=== PATIENT | male | born 1960 | race Caucasian/White ===

== ENCOUNTER 2025-05-22 13:12 | Inpatient (IN) | payer OTHER ==
--- OUTSIDE RECORDS SUMMARY | 2025-05-22 13:21 | XMS REPORT | Continuity of Care Document ---
Author Name Unknown Address [address] [facility] [address] [facility] [address] [place] [address] [facility] Address 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 Role Phone [facility] Primary Car e Physician Doctor Unassigned, [place] Attending Clinician U lopez Samaniego MD, Daniel MorenoHAshlie Attending Clinician Ayanna Iqbal MD Attending Clinician [phone] Fern Gonzalez RN Attending Clinician [phone] CINDA ROBERTS Attending Clinician Unavailable Paul Higuera MD Attending Clinician [phone] Caryn Bai LVN Attending Clinician GUME ECHEVERRIA Attending Clinician Unavailable GUME ECHEVERRIA Attending Clinician Unavailable Enzo Jauregui Attending Clinician Unavailable Maury Oliveira MD Attending Clinician Doctor Unassigned, [place] Attending Clinician U MAURY Garner Attending Clinician UnavailMAURY Grijalva Attending Clinician Unavaila ble 1, [facility] Attending Clinician Unavail able CINAD ROBERTS Admitting Clinician Unavailable RENETTA MELVIN Admitting Clinician Unavailable Enzo Jauregui Admitting Clinician Unavailable Physician, No Primary or Family Admitting Clinic maximus Unavailable Payers Payer Name Policy Type Policy Number Effective Date Expirati on Date Source Problems Condition Name Condition Details Condition Category Status Onset Date Resolution Date Last Treatment Date Treating Clinician Comments Source Coronary atheroscle rosis Coronary atheroscle rosis Disease Active 04-08 00:00: 00 [facility] Bradycardi a, unspecifie d Bradycardi a, unspecifie d Disease Active 04-08 00:00: 00 [facility] Type 2 diabetes mellitus with hyperglyce cole Type 2 diabetes mellitus with hyperglyce cole Disease Active 04-08 00:00: 00 [facility] History of cerebrovas cular accident History of cerebrovas cular accident Disease Active 04-08 00:00: 00 [facility] Essential (primary) hypertensi on Essential (primary) hypertensi on Disease Active 04-08 00:00: 00 [facility] Chest pain, unspecifie d type Chest pain, unspecifie d type Disease Active 04-07 00:00: 00 [facility] Weakness Weakness Disease Active 03-04 00:00: 00 [facility] Hyperlipid emia Hyperlipid emia Disease Active 2023-09 00:00: 00 [facility] Dyspnea Dyspnea Disease Active 2020-09 00:00: 00 [facility] No known active problems No known active problems Disease [facility] Allergies, Adverse Reactions, Alerts Allergy Name Allergy Type Status Severity Reaction(s) Onset Date Inactive Date Treating Clinician Comments Source PREGABAL IN DRUG INGREDI Active Other-Cmnt 03-04 00:00: 00 [facility] Pregabal in Propensi ty to adverse reaction s Active Other - See comments 03-04 00:00: 00 Vision changes [facility] No Known Allergie s DA Active U 2023-09 00:00: 00 [facility] NO KNOWN ALLERGIE S Drug Class Active [facility] Social History Social Habit Start Date Stop Date Quantity Comments Source History of tobacco use Cigarette Smoker [facility] Gender identity [facility] Tobacco use and exposure 2025-03-05 00:00:00 2025-03-05 00:00:00 Smokeless tobacco non-user [facility] Alcoholic beverage intake 2025-03-05 00:00:00 2025-03-05 00:00:00 Current drinker of alcohol (finding) [facility] Tobacco Comment 2025-03-05 00:00:00 2025-03-05 00:00:00 1 pack per week for 50 years [facility] Alcohol Comment 2025-03-05 00:00:00 2025-03-05 00:00:00 socially [facility] Exposure to SARS-CoV-2 (event) 2022-12-26 00:00:00 2023-01-05 14:32:00 Not sure [facility] History of Social function 2022-09-01 00:00:00 2022-09-01 00:00:00 [facility] Sex assigned at 1960 00:00:00 1960 00:00:00 [facility] Smoking Status Start Date Stop Date Source Tobacco smoking consumption unknown [facility] Ex-smoker 2025-04-07 00:00:00 2025-04-07 00:00:00 [facility] Smokes tobacco daily 2025-03-05 00:00:00 [facility] Medications Ordered Medication Name Filled Medication Name Start Date Stop Date Current Medication? 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 Restricted medication : ESTEPHANIA ARIAS [facility] tc 99m-tetrofo smin (MYOVIEW) injection 15.7 millicurie 04-09 14:45: 00 04-09 14:42 :00 No [id number] 15.7mCi 15.7 millicurie , Intravenou s, ONCE, 1 dose, On Tue04/09/25 at 0945, Routine [facility] atorvastati n (LIPITOR) tablet 40 mg atorvastati n (LIPITOR) tablet 40 mg 04-09 02:00: 00 04-09 21:46 :47 Yes 40mg 40 mg, Oral, QHS, First dose on Tue04/08/25 at 2100, Until Discontinu ed, Routine [facility] DULoxetine (CYMBALTA) capsule 60 mg DULoxetine (CYMBALTA) capsule 60 mg 04-08 14:00: 00 04-09 21:46 :47 Yes 60mg 60 mg, Oral, DAILY, First dose on Tue04/08/25 at 0900, Until Discontinu ed, Routine [facility] clopidogreL (PLAVIX) 75 mg tablet 75 mg clopidogreL (PLAVIX) 75 mg tablet 75 mg 04-08 14:00: 00 04-09 21:46 :47 Yes 75mg 75 mg, Oral, DAILY, First dose on Tue04/08/25 at 0900, Until Discontinu ed, Routine [facility] aspirin chewable tablet 81 mg aspirin chewable tablet 81 mg 04-08 14:00: 00 04-09 21:46 :47 Yes 81mg 81 mg, Oral, DAILY, First dose on Tue04/08/25 at 0900, Until Discontinu ed, Routine [facility] sennosides (SENOKOT) tablet 8.6 mg sennosides (SENOKOT) tablet 8.6 mg 04-08 13:00: 00 04-09 21:46 :47 Yes 8.6mg 8.6 mg, Oral, BID, First dose on Tue04/08/25 at 0800, Until Discontinu ed, Routine [facility] insulin glargine (LANTUS U-100) injection 8 Units insulin glargine (LANTUS U-100) injection 8 Units 04-08 13:00: 00 04-09 21:46 :47 Yes 8U 8 Units, Subcutaneo us, BID, First dose on Tue04/08/25 at 0800, Until Discontinu ed, Routine [facility] gabapentin (NEURONTIN) capsule 300 mg gabapentin (NEURONTIN) capsule 300 mg 04-08 13:00: 00 04-09 21:46 :47 Yes 300mg 300 mg, Oral, TID, First dose on Tue04/08/25 at 0800, Until Discontinu ed, Routine [facility] calcitrioL (ROCALTROL) capsule 0.25 mcg calcitrioL (ROCALTROL) capsule 0.25 mcg 04-08 13:00: 00 04-09 21:46 :47 Yes .25ug 0.25 mcg, Oral, BID, First dose on Tue04/08/25 at 0800, Until Discontinu ed, Routine [facility] memantine (NAMENDA) tablet 10 mg memantine (NAMENDA) tablet 10 mg 04-08 13:00: 00 04-09 21:46 :47 Yes 10mg 10 mg, Oral, BID, First dose on Tue04/08/25 at 0800, Until Discontinu ed, 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, 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 Restricted medication : AGUSTIN MACIEL [facility] melatonin (MELATIN) tablet 3 mg 04-08 05:50: 13 04-09 21:46 :47 No 3mg [facility] docusate (COLACE) capsule 200 mg 04-08 05:49: 36 04-09 21:46 :47 No 200mg [facility] nitroglycer in (NITROSTAT) sublingual tablet 0.4 mg 04-08 05:18: 25 04-09 21:46 :47 No .4mg 0.4 mg, Sublingual , Q5MIN PRN, Starting on Tue04/08/25 at 0018, Until Tue04/09/25 at 1646, Routine, Chest pain [facility] Sliding Scale Insulin - Lispro (HumaLOG) [id number] 3825-0 7-13 22:00: 00 04-09 21:46 :47 Yes Subcutaneo us, TID MEALS+HS, First dose on Tue04/07/25 at 1700, Until Discontinu ed, Routine [facility] enoxaparin (LOVENOX) injection 40 mg enoxaparin (LOVENOX) injection 40 mg 04-07 22:00: 00 04-09 21:46 :47 Yes 40mg 40 mg, Subcutaneo us, DAILY AT 1700, First dose on Tue04/07/25 at 1700, Until Discontinu ed, Routine [facility] glucagon HCL injection 1 mg 04-07 18:14: 37 04-09 21:46 :47 No 1mg [facility] dextrose 50 % in water (D50W) injection 25 mL 04-07 18:14: 37 04-09 21:46 :47 No 25mL [facility] ondansetron (ZOFRAN (PF)) injection 4 mg 04-07 18:14: 30 04-09 21:46 :47 No 4mg [facility] morpHINE (4 mg/mL) injection 4 mg 04-07 18:14: 29 04-09 21:46 :47 No 4mg [facility] HYDROcodone -acetaminop hen (NORCO 5) tablet 1 tablet HYDROcodone -acetaminop hen (NORCO 5) tablet 1 tablet 04-07 18:14: 27 04-09 21:46 :47 Yes 1{tbl} 1 tablet, Oral, Q6HPRN, Starting on Tue04/07/25 at 1314, Until Tue04/09/25 at 1646, Routine, Pain (scale 4-6) [facility] acetaminoph en (TYLENOL) tablet 650 mg 04-07 18:14: 22 04-09 21:46 :47 No 650mg [facility] aspirin tablet 325 mg 04-07 15:15: 00 04-07 16:24 :00 No 325mg 325 mg, Oral, ONCE, 1 dose, On Tue04/07/25 at 1015, STAT [facility] atorvastati n 40 mg tablet 03-19 00:00: 00 Yes [id number] 40mg Take 1 tablet by mouth at bedtime. [facility] calcitrioL 0.25 mcg capsule 03-19 00:00: 00 Yes [id number] .25ug Take 1 capsule by mouth in the morning and 1 capsule in the evening. [facility] clopidogreL 75 mg tablet 03-19 00:00: 00 Yes [id number] 75mg Take 1 tablet by mouth in the morning. [facility] DULoxetine 60 mg capsule 03-19 00:00: 00 Yes [id number] 60mg Take 1 capsule by mouth in the morning. [facility] gabapentin 300 mg capsule 03-19 00:00: 00 Yes [id number] 300mg Take 1 capsule by mouth in the morning and 1 capsule at noon and 1 capsule in the evening. [facility] insulin glargine 100 unit/mL injection 03-19 00:00: 00 Yes [id number] 8U inject 8 Units under the skin in the morning and 8 Units in the evening. [facility] sennosides 8.6 mg tablet 03-19 00:00: 00 Yes [id number] 8.6mg Take 1 tablet by mouth in the morning and 1 tablet in the evening. [facility] simethicone 80 mg chewable tablet 03-19 00:00: 00 Yes [id number] 160mg Take 2 tablets by mouth 3 times daily with meals as needed for Gas. [facility] clopidogreL 75 mg tablet 03-07 00:00: 00 06-06 04:59 :00 Yes [id number] 75mg Take 1 tablet by mouth in the morning for 90 days. [facility] DULoxetine 60 mg capsule 03-07 00:00: 00 04-07 04:59 :00 Yes [id number] 60mg Take 1 capsule by mouth in the morning for 30 days. [facility] metFORMIN 850 mg tablet 03-06 19:59: 17 Yes Take 1 tablet 3 times a day by oral route. [facility] vitamin B-12 1,000 mcg tablet 03-06 19:59: 17 Yes 1000ug Take 1 tablet by mouth in the morning. [facility] docusate 100 mg capsule 03-06 19:59: 17 Yes 200mg Take 2 capsules by mouth 2 times daily as needed for Constipati on. [facility] melatonin 3 mg tablet 03-06 19:59: 17 Yes 3mg Take 1 tablet by mouth at bedtime. [facility] tirzepatide 7.5 mg/0.5 mL subcutaneou s injection pen 03-06 19:59: 17 Yes 7.5mg inject 7.5 mg under the skin weekly. [facility] amLODIPine 5 mg tablet 03-06 19:59: 16 03-06 00:00 :00 No 5mg Take 1 tablet by mouth in the morning. [facility] calcitrioL 0.25 mcg capsule 03-06 19:59: 16 03-06 00:00 :00 No .25ug Take 1 capsule by mouth in the morning and 1 capsule in the evening. [facility] donepeziL 10 mg tablet 03-06 19:59: 16 03-06 00:00 :00 No 10mg Take 1 tablet by mouth at bedtime. [facility] insulin glargine 100 unit/mL injection 03-06 19:59: 16 03-06 00:00 :00 No 10U inject 10 Units under the skin in the morning and 10 Units in the evening. [facility] sennosides 8.6 mg tablet 03-06 19:59: 16 03-06 00:00 :00 No 8.6mg Take 1 tablet by mouth 2 times daily as needed for Constipati on. [facility] SERTraline 50 mg tablet 03-06 19:59: 16 03-06 00:00 :00 No 25mg Take 0.5 tablets by mouth in the morning. [facility] simethicone 80 mg chewable tablet 03-06 19:59: 16 03-06 00:00 :00 No 160mg Take 2 tablets by mouth 3 times daily with meals as needed for Gas. [facility] tiZANidine 4 mg capsule 03-06 19:59: 16 03-06 00:00 :00 No 4mg Take 1 capsule by mouth once daily as needed for Muscle Spasms. [facility] NaCl 0.9% (NS) IV infusion 1,000 mL 03-06 12:45: 00 03-06 14:21 :11 No 1000mL at 250 mL/hr, IV Infusion, ONCE, 1 dose, On Tue03/06/25 at 0745, Routine [facility] atorvastati n (LIPITOR) tablet 40 mg atorvastati n (LIPITOR) tablet 40 mg 03-06 02:00: 00 Yes 40mg 40 mg, Oral, QHS, First dose on Tue03/05/25 at 2100, Until Discontinu ed, Routine [facility] insulin glargine 100 unit/mL injection 03-06 00:00: 00 07-10 04:59 :00 Yes [id number] 8U inject 8 Units under the skin in the morning and 8 Units in the evening. Do all this for 125 days. [facility] atorvastati n 40 mg tablet 03-06 00:00: 00 06-05 04:59 :00 Yes [id number] 40mg Take 1 tablet by mouth at bedtime for 90 days. [facility] calcitrioL 0.25 mcg capsule 03-06 00:00: 00 06-05 04:59 :00 Yes [id number] .25ug Take 1 capsule by mouth in the morning and 1 capsule in the evening. Do all this for 90 days. [facility] sennosides 8.6 mg tablet 03-06 00:00: 00 06-05 04:59 :00 Yes [id number] 8.6mg Take 1 tablet by mouth in the morning and 1 tablet in the evening. Do all this for 90 days. [facility] simethicone 80 mg chewable tablet 03-06 00:00: 00 06-05 04:59 :00 Yes [id number] 160mg Take 2 tablets by mouth 3 times daily with meals as needed for Gas for up to 90 days. [facility] gabapentin 300 mg capsule 03-06 00:00: 00 04-06 04:59 :00 Yes [id number] 300mg Take 1 capsule by mouth in the morning and 1 capsule at noon and 1 capsule in the evening. Do all this for 30 days. [facility] perflutren lipid microsphere s (DEFINITY) injection 2 mL 03-05 20:45: 00 03-05 20:45 :00 No [id number] 2mL 2 mL, IV Push, ONCE, 1 dose, On Tue03/05/25 at 1545, Routine [facility] gabapentin (NEURONTIN) capsule 300 mg gabapentin (NEURONTIN) capsule 300 mg 03-05 19:00: 00 Yes 300mg 300 mg, Oral, TID, First dose (after last modificati on) on Tue03/05/25 at 1400, Until Discontinu ed, Routine [facility] DULoxetine (CYMBALTA) capsule 60 mg DULoxetine (CYMBALTA) capsule 60 mg 03-05 14:00: 00 Yes 60mg 60 mg, Oral, DAILY, First dose on Tue03/05/25 at 0900, Until Discontinu ed, Routine [facility] clopidogreL (PLAVIX) 75 mg tablet 75 mg clopidogreL (PLAVIX) 75 mg tablet 75 mg 03-05 14:00: 00 Yes 75mg 75 mg, Oral, DAILY, First dose on Tue03/05/25 at 0900, Until Discontinu ed, Routine [facility] vitamin B-12 (CYANOCOBAL ENRIQUEZ) tablet 1,000 mcg vitamin B-12 (CYANOCOBAL ENRIQUEZ) tablet 1,000 mcg 03-05 14:00: 00 03-07 00:59 :18 Yes 1000ug 1,000 mcg, Oral, DAILY, First dose on Tue03/05/25 at 0900, Until Discontinu ed, Routine [facility] tamsulosin (FLOMAX) capsule 0.4 mg tamsulosin (FLOMAX) capsule 0.4 mg 03-05 14:00: 00 03-05 13:51 :26 Yes .4mg 0.4 mg, Oral, DAILY, First dose on Tue03/05/25 at 0900, Until Discontinu ed, Routine [facility] sennosides (SENOKOT) tablet 8.6 mg sennosides (SENOKOT) tablet 8.6 mg 03-05 13:00: 00 Yes 8.6mg 8.6 mg, Oral, BID, First dose on Tue03/05/25 at 0800, Until Discontinu ed, Routine [facility] insulin glargine (LANTUS U-100) injection 8 Units insulin glargine (LANTUS U-100) injection 8 Units 03-05 13:00: 00 Yes 8U 8 Units, Subcutaneo us, BID, First dose on Tue03/05/25 at 0800, Until Discontinu ed, Routine [facility] calcitrioL (ROCALTROL) capsule 0.25 mcg calcitrioL (ROCALTROL) capsule 0.25 mcg 03-05 13:00: 00 Yes .25ug 0.25 mcg, Oral, BID, First dose on Tue03/05/25 at 0800, Until Discontinu ed, Routine [facility] Sliding Scale Insulin - Lispro (HumaLOG) [id number] 9854-0 6-10 13:00: 00 03-07 00:59 :18 Yes Subcutaneo us, TID MEALS+HS, First dose on Tue03/05/25 at 0800, Until Discontinu ed, Routine [facility] heparin (porcine) injection 5,000 Units [id number] 5213-0 6-10 13:00: 00 03-07 00:59 :17 Yes 5000U 5,000 Units, Subcutaneo us, Q12H, First dose on Tue03/05/25 at 0800, Until Discontinu ed, Routine [facility] gabapentin (NEURONTIN) capsule 900 mg gabapentin (NEURONTIN) capsule 900 mg 03-05 13:00: 00 03-05 15:39 :26 Yes 900mg 900 mg, Oral, TID, First dose on Tue03/05/25 at 0800, Until Discontinu ed, Routine [facility] simethicone (GAS RELIEF (SIMETHICON E)) chewable tablet 160 mg 03-05 06:03: 47 Yes 160mg [facility] glucagon HCL injection 1 mg 03-05 04:45: 01 03-07 00:59 :18 No 1mg 1 mg, Intramuscu lar, PRN, Starting on Tue03/04/25 at 2345, Until Tue03/06/25 at 195, MAHIN, Low blood sugar, Blood Glucose < or = 70 mg/dL and patient is NPO, unable to swallow or has mental changes. [facility] dextrose 50 % in water (D50W) injection 25 mL 03-05 04:45: 01 03-07 00:59 :18 No 25mL 25 mL, Slow IV Push, PRN, Starting on Tue03/04/25 at 2345, Until Tue03/06/25 at 195, MAHIN, Blood Glucose < or = 70 mg/dL and patient is NPO, unable to swallow or has mental status changes. [facility] atropine injection 1 mg 03-05 04:43: 07 03-07 00:59 :17 No 1mg 1 mg, IV Push, Q5MIN PRN, Starting on Tue03/04/25 at 2343, Until Tue03/06/25 at 1959, Routine, Symptomati c Bradycardi a [facility] acetaminoph en (TYLENOL) tablet 650 mg 03-05 04:40: 01 03-07 00:59 :18 No 650mg [facility] NaCl 0.9% (NS) bolus infusion 1,000 mL 03-05 03:00: 00 03-05 03:07 :00 No [id number] 1000mL at 999 mL/hr, 1,000 mL, IV Infusion, ONCE, 1 dose, On Tue03/04/25 at 2200, [facility] aspirin 81 mg EC tablet 03-05 01:11: 15 03-05 00:00 :00 No Take 1 tablet every day by oral route. [facility] Insulin Detemir 100 unit/mL (3 mL) injection 03-05 01:11: 15 03-05 00:00 :00 No 15 UNITS Q AM AND 20 UNITS Q PM [facility] NaCl 0.9% (NS) bolus infusion 1,000 mL 03-05 00:00: 00 03-05 00:50 :00 No [id number] 1000mL at 999 mL/hr, 1,000 mL, IV Infusion, ONCE, 1 dose, On Tue03/04/25 at 1900, [facility] acetaminoph en (TYLENOL) tablet 650 mg 03-05 00:00: 00 03-04 23:47 :00 No [id number] 650mg 650 mg, Oral, ONCE, 1 dose, On Tue03/04/25 at 1900, [facility] iopamidol (ISOVUE 370-500 mL) injection 83 mL 03-04 22:47: 00 03-04 23:00 :00 No [id number] 83mL 83 mL, Intravenou s, ONCE, 1 dose, On Tue03/04/25 at 1800, Routine [facility] metFORMIN 850 mg tablet 06-22 13:50: 27 Yes Take 1 tablet 3 times a day by oral route. [facility] aspirin 81 mg EC tablet 06-22 13:50: 26 Yes Take 1 tablet every day by oral route. [facility] Insulin Detemir 100 unit/mL (3 mL) injection 06-22 13:50: 26 Yes 15 UNITS Q AM AND 20 UNITS Q PM [facility] semaglutide 1 mg/dose (4 mg/3 mL) PnIj 8-14 00:00: 00 03-05 00:00 :00 No INJECT 2MG (1MGX2) UNDER THE SKIN EVERY WEEK FOR DIABETES [facility] gabapentin 300 mg capsule 04-04 00:00: 00 03-06 00:00 :00 No 900mg Take 3 capsules by mouth in the morning and 3 capsules at noon and 3 capsules in the evening. [facility] losartan 50 mg tablet 04-04 00:00: 00 03-06 00:00 :00 No 50mg 1 tablet. [facility] buPROPion XL 150 mg 24 hr tablet 04-04 00:00: 00 03-05 00:00 :00 No 150mg 1 tablet. [facility] lamoTRIgine 25 mg tablet 5-09 00:00: 00 03-05 00:00 :00 No 25mg 1 tablet. [facility] clopidogreL 75 mg tablet 4-30 00:00: 00 03-06 00:00 :00 No 75mg 1 tablet. [facility] atorvastati n 40 mg tablet 4-30 00:00: 00 03-06 00:00 :00 No 40mg 1 tablet. [facility] isosorbide mononitrate 30 mg 24 hr tablet 4-30 00:00: 00 03-06 00:00 :00 No 30mg 1 tablet. [facility] tamsulosin 0.4 mg 24 hr capsule 4-30 00:00: 00 03-06 00:00 :00 No .4mg 1 capsule. [facility] DULoxetine 20 mg capsule 2-10 00:00: 00 03-06 00:00 :00 No 80mg 4 capsules. [facility] albuterol 90 mcg/actuati on inhaler 10-22 00:00: 00 Yes 2{puff} Inhale 2 Puffs every 6 hours as needed. [facility] memantine 10 mg tablet 10-22 00:00: 00 Yes 10mg Take 1 tablet by mouth in the morning and 1 tablet in the evening. [facility] insulin glargine-yf gn 100 unit/mL (3 mL) InPn 10-11 00:00: 00 03-05 00:00 :00 No INJECT 60 UNITS UNDER THE SKIN EVERY MORNING AND INJECT 65 UNITS AT BEDTIME FOR DIABETES [facility] No known medications 2021-09 15:02: 16 No No known medication s [facility] Vital Signs Vital Name Observation Time Observation Value Comments S alyssa Systolic blood pressure 2025-04-09 20:38:00 123 mm[Hg] [facility] Diastolic blood pressure 2025-04-09 20:38:00 71 mm[Hg] [facility] Heart rate 2025-04-09 20:38:00 62 /min [facility] Body temperature 2025-04-09 20:38:00 36.56 Mag [facility] Respiratory rate 2025-04-09 20:38:00 15 /min [facility] Oxygen saturation in Arterial blood by Pulse oximetry 2025-04-09 20:38:00 96 /min [facility] Body weight 2025-04-09 08:40:00 74.98 kg [facility] BMI 2025-04-09 08:40:00 25.13 kg/m2 [facility] Body height 2025-04-07 15:08:00 172.7 cm [facility] Systolic blood pressure 2025-03-06 20:35:00 131 mm[Hg] [facility] Diastolic blood pressure 2025-03-06 20:35:00 72 mm[Hg] [facility] Heart rate 2025-03-06 20:35:00 50 /min [facility] Body temperature 2025-03-06 20:35:00 36.56 Mag [facility] Respiratory rate 2025-03-06 20:35:00 18 /min [facility] Oxygen saturation in Arterial blood by Pulse oximetry 2025-03-06 20:35:00 98 /min [facility] Body weight 2025-03-06 09:00:00 78.971 kg [facility] BMI 2025-03-06 09:00:00 26.47 kg/m2 [facility] Body height 2025-03-05 04:53:00 172.7 cm [facility] Systolic blood pressure 2023-06-22 18:53:00 147 mm[Hg] [facility] Diastolic blood pressure 2023-06-22 18:53:00 77 mm[Hg] [facility] Heart rate 2023-06-22 18:53:00 73 /min [facility] Body height 2023-06-22 18:53:00 172.7 cm [facility] Body weight 2023-06-22 18:53:00 91.627 kg [facility] BMI 2023-06-22 18:53:00 30.71 kg/m2 [facility] Oxygen saturation in Arterial blood by Pulse oximetry 2023-06-22 18:53:00 95 /min [facility] Systolic blood pressure 2023-01-05 19:49:00 123 mm[Hg] [facility] Diastolic blood pressure 2023-01-05 19:49:00 76 mm[Hg] [facility] Heart rate 2023-01-05 19:49:00 85 /min [facility] Body temperature 2023-01-05 19:49:00 35.83 Mag [facility] Respiratory rate 2023-01-05 19:49:00 19 /min [facility] Oxygen saturation in Arterial blood by Pulse oximetry 2023-01-05 19:49:00 95 /min [facility] Systolic blood pressure 2022-09-01 20:59:00 135 mm[Hg] [facility] Diastolic blood pressure 2022-09-01 20:59:00 70 mm[Hg] [facility] Heart rate 2022-09-01 20:59:00 65 /min [facility] Respiratory rate 2022-09-01 20:59:00 21 /min [facility] Body height 2022-09-01 20:59:00 172.7 cm [facility] Body weight 2022-09-01 20:59:00 111.585 kg [facility] BMI 2022-09-01 20:59:00 37.40 kg/m2 [facility] Oxygen saturation in Arterial blood by Pulse oximetry 2022-09-01 20:59:00 95 /min [facility] Procedures Procedure Date / Time Performed Performing Clinician Source POCT GLUCOSE (AUTOMATED) 2025-04-09 17:45:00 Arleen Roberts [facility] EKG-12 LEAD 2025-04-09 14:28:15 [facility] 2025-04-09 12:37:00 Arleen Roberts [facility] BASIC METABOLIC PANEL (NA, K, CL, CO2, GLUCOSE, BUN, CREATININE, CA) 2025-04-09 06:07:00 Rita Calderón [facility] CBC WITH DIFF 2025-04-09 06:07:00 Rita Calderón [facility] POCT GLUCOSE (AUTOMATED) 2025-04-09 00:58:00 Arleen Roberts [facility] POCT GLUCOSE (AUTOMATED) 2025-04-08 21:29:00 Arleen Roberts [facility] POCT GLUCOSE (AUTOMATED) 2025-04-08 16:31:00 Arleen Roberts [facility] POCT GLUCOSE (AUTOMATED) 2025-04-08 12:46:00 Arleen Roberts [facility] MAGNESIUM 2025-04-08 05:47:00 Cinda Roberts [facility] BASIC METABOLIC PANEL (NA, K, CL, CO2, GLUCOSE, BUN, CREATININE, CA) 2025-04-08 05:47:00 Cinda Roberts [facility] TROPONIN I 2025-04-08 03:14:00 Cinda Roberts [facility] POCT GLUCOSE (AUTOMATED) 2025-04-08 02:12:00 Arleen Roberts [facility] TROPONIN I 2025-04-07 21:44:00 Cinda Roberts [facility] POCT GLUCOSE (AUTOMATED) 2025-04-07 21:29:00 Arleen Roberts [facility] URINALYSIS 2025-04-07 16:04:00 Hector Martins [facility] TROPONIN I 2025-04-07 15:58:00 Hector Martins [facility] COMP. METABOLIC PANEL (62409) 2025-04-07 15:58:00 Hector Martins [facility] N-TERMINAL PRO-BNP 2025-04-07 15:58:00 Grecia Martins [facility] CBC WITH DIFF 2025-04-07 15:57:00 Hector Martins [facility] XR CHEST 1 VW 2025-04-07 15:18:00 Hector Martins [facility] POCT GLUCOSE (AUTOMATED) 2025-03-06 22:48:00 Toi Echeverria [facility] POCT GLUCOSE (AUTOMATED) 2025-03-06 17:21:00 Toi Echeverria [facility] POCT GLUCOSE (AUTOMATED) 2025-03-06 13:36:00 Toi Echeverria [facility] MAGNESIUM 2025-03-06 10:21:00 Paul Higuera [facility] BASIC METABOLIC PANEL (NA, K, CL, CO2, GLUCOSE, BUN, CREATININE, CA) 2025-03-06 10:21:00 Paul Higuera [facility] CBC WITH DIFF 2025-03-06 10:21:00 Paul Higuera [facility] POCT GLUCOSE (AUTOMATED) 2025-03-06 01:47:00 Toi Echeverria [facility] POCT GLUCOSE (AUTOMATED) 2025-03-05 23:20:00 Toi Echeverria [facility] TRANSTHORACIC ECHO (TTE) COMPLETE W/ CONTRAST 2025-03-05 20:30:30 Mariluz Myers [facility] POCT GLUCOSE (AUTOMATED) 2025-03-05 17:05:00 Toi Echeverria [facility] POCT GLUCOSE (AUTOMATED) 2025-03-05 14:15:00 Toi Echeverria [facility] MAGNESIUM 2025-03-05 09:20:00 Leonora Carr [facility] VITAMIN B12, LEVEL 2025-03-05 09:20:00 Leonora Peacock Rosanna [facility] TROPONIN I 2025-03-05 09:20:00 Leonora Carr Rosanna [facility] BASIC METABOLIC PANEL (NA, K, CL, CO2, GLUCOSE, BUN, CREATININE, CA) 2025-03-05 09:20:00 Leonora Carr Rosanna [facility] LIPID PANEL (18441)(TOTAL CHOLESTEROL, TRIGLYCERIDES, HDL) 2025-03-05 09:20:00 Leonora Carr [facility] CBC WITH DIFF 2025-03-05 09:20:00 Leonora Carr Rosanna [facility] VITAMIN D, 25-OH 2025-03-05 09:20:00 Leonora Carr Rosanna [facility] HB ECG ROUTINE & RHYTHM STRIP 2025-03-05 06:41:24 Leonora Carr Rosanna [facility] BLOOD CULTURE SCREEN 2025-03-05 02:26:00 Gerry Salazar [facility] LACTIC ACID WITH 2 HOUR REFLEX 2025-03-05 02:26:00 Ronnie Salazar [facility] INFLUENZA A/B RSV COVID NAAT 2025-03-05 00:47:00 Ronnie Salazar [facility] XR CHEST 1 VW 2025-03-04 23:58:00 Ronnie Salazar [facility] URINALYSIS 2025-03-04 23:42:00 Ronnie Salazar [facility] HB ECG ROUTINE & RHYTHM STRIP 2025-03-04 23:24:40 Ronnie Salazar [facility] POCT GLUCOSE (AUTOMATED) 2025-03-04 23:23:00 Jesus Salazar [facility] CT STROKE ANGIOGRAM HEAD 2025-03-04 22:51:58 Jesus Salazar [facility] CT STROKE ANGIOGRAM NECK 2025-03-04 22:51:58 Jesus Salazar [facility] CT STROKE HEAD WO CONTRAST 2025-03-04 22:44:50 Ronnie Salazar [facility] TROPONIN I 2025-03-04 22:43:00 Ronnie Salazar [facility] THYROID STIMULATING HORMONE 2025-03-04 22:43:00 Ronnie Salazar [facility] BASIC METABOLIC PANEL (NA, K, CL, CO2, GLUCOSE, BUN, CREATININE, CA) 2025-03-04 22:43:00 Ronnie Salazar [facility] CBC WITHOUT DIFF 2025-03-04 22:43:00 [facility]A1C[facility] 2025-03-04 22:43:00 Leonora Carr [facility] PROTHROMBIN TIME / INR 2025-03-04 22:43:00 Kumar Salazar [facility] ACTIVATED PARTIAL THRMPLAS ROBER 2025-03-04 22:43:00 Ronnie Salazar [facility] POCT GLUCOSE (AUTOMATED) 2025-03-04 22:36:00 Jesus Salazar [facility] DME/SUPPLY JUSTIFICATION 2023-06-23 05:01:00 Doc tor Unassigned, [place] [facility] SLEEP LAB RESULTS 2023-05-28 05:01:00 Doctor Lea ssigned, [place] [facility] SLEEP STUDY DATA REPORT 2022-12-20 05:01:00 Doct or Unassigned, [place] [facility] AUTHORIZATION FOR RELEASE OF PHI 2022-09-17 06:01:00 Doctor Unassigned, [place] [facility] NO SHOW OR MISSED APPOINTMENT POLICY ACKNOWLEDGEMENT 2022-09-01 20:51:38 Doctor Unassigned, [place] [facility] PATIENT FINANCIAL POLICY 2022-09-01 20:51:18 Doctor Unassigned, [place] [facility] ASSIGNMENT OF BENEFITS 2022-09-01 20:50:51 Docto r Unassigned, [place] [facility] CONSENT/REFUSAL FOR DIAGNOSIS AND TREATMENT 2022-09-01 20:50:36 Doctor Unassigned, [place] [facility] Encounters Start Date/Time End Date/Time Encounter Type Admission Type Attending [facility] Care Department Encounter ID Source 2025-04-04 00:00:00 2025-05-11 18:38:38 Patient Secure Msg Doctor Unassigned, [place] Doctor Unassigned, [place] [facility] 1.840.114 350.1.13.10 4.2.7.2.686 [id number] [facility] 2025-04-10 00:00:00 2025-05-11 18:19:45 Patient Secure Msg Daniel Samaniego [facility] 1.2840.114 350.1.13.10 4.2.7.2.686 [id number] [facility] 2025-03-19 00:00:00 2025-04-20 18:21:39 Patient Secure Msg Ayanna Iqbal [facility] 1..840.114 350.1.13.10 4.2.7.2.686 [id number] [facility] 2025-04-10 00:00:00 2025-04-10 10:45:31 Transition of Care Fern Gonzalez Marisa M SHEARN MOODY PLAELINA 1..840.114 350.1.13.10 4.2.7.2.686 [id number] [facility] 2025-04-07 10:04:00 2025-04-09 16:24:00 Hospital Encounter X CINDA ROBERTS [facility] [id number] [facility] 2025-03-07 00:00:00 2025-03-19 11:04:13 Telephone Paul Higuera [facility] 1..840.114 350.1.13.10 4.2.7.2.686 [id number] [facility] 2025-03-07 00:00:00 2025-03-07 11:23:57 Transition of Care Caryn Bai Antoinette SHEARTigist JOSÉ LUIS SALCIDO 1..840.114 350.1.13.10 4.2.7.2.686 [id number] [facility] 2025-03-04 17:31:00 2025-03-06 19:52:00 Hospital Encounter X GUME ECHEVERRIA PATRICK [facility] [id number] [facility] 2024-08-04 16:46:00 2024-08-07 16:11:00 Inpatient EM Enzo Jauregui [facility] [id number] [facility] 2023-08-30 00:00:00 2023-08-30 00:00:00 Telephone Maury Oliveira [facility] 1..840.114 350.1.13.10 4.2.7.2.686 [id number] [facility] 2023-08-23 00:00:00 2023-08-23 00:00:00 Telephone Maury Oliveira [facility] 1..840.114 350.1.13.10 4.2.7.2.686 [id number] [facility] 2023-07-18 00:00:00 2023-07-18 00:00:00 Telephone Maury Oliveira [facility] 1.2.840.114 350.1.13.10 4.2.7.2.686 [id number] [facility] 2023-06-23 00:00:00 2023-06-23 00:00:00 Orders Only Doctor Unassigned, [place] [facility] 1.2.840.114 350.1.13.10 4.2.7.2.686 [id number] [facility] 2023-06-22 14:00:00 2023-06-22 14:30:00 Office Visit Maury Oliveira [facility] 1.2.840.114 350.1.13.10 4.2.7.2.686 [id number] [facility] 2023-06-22 14:00:00 2023-06-22 14:00:00 Outpatient R MAURY OLIVEIRA [facility] [id number] [facility] 2023-06-06 20:00:00 2023-06-06 20:00:00 Outpatient R MAURY OLIVEIRA [facility] [id number] [facility] 2023-05-28 20:00:00 2023-05-28 22:30:00 Restaurant Delivery Driver Visit 1, [facility] Bed Maury Oliveira [facility] 1.2.840.114 350.1.13.10 4.2.7.2.686 [id number] [facility] 2023-05-28 20:00:00 2023-05-28 20:00:00 Outpatient R MARCOSKAREN, KAYLIL XAVIER, [facility] [id number] [facility] 2023-05-28 19:45:00 2023-05-28 19:45:00 Outpatient R XAVIER, KAYLIL XAVIER, [facility] [id number] [facility] 2023-05-28 00:00:00 2023-05-28 00:00:00 Orders Only Doctor Unassigned, [place] [facility] 1.840.114 350.1.13.10 4.2.7.2.686 [id number] [facility] 2023-01-05 15:00:00 2023-01-05 15:30:00 Office Visit Maury Oliveira [facility] 1.840.114 350.1.13.10 4.2.7.2.686 [id number] [facility] 2023-01-05 15:00:00 2023-01-05 15:00:00 Outpatient R MARCOSCHANTALSATURNINO, KAYLIL XAVIER, [facility] [id number] [facility] 2022-12-20 20:00:00 2022-12-20 22:30:00 Restaurant Delivery Driver Visit 1, [facility] Bed Muary Oliveira [facility] 1.840.114 350.1.13.10 4.2.7.2.686 [id number] [facility] 2022-12-20 20:00:00 2022-12-20 20:00:00 Outpatient R MARCOSCHANTALSATURNINO MAYRAYADIRAL MARCOSKAREN, [facility] [id number] [facility] 2022-12-20 00:00:00 2022-12-20 00:00:00 Orders Only Doctor Unassigned, [place] [facility] 1.2840.114 350.1.13.10 4.2.7.2.686 [id number] [facility] 2022-09-17 00:00:00 2022-09-17 00:00:00 Orders Only Doctor Unassigned, [place] [facility] 1.2.840.114 350.1.13.10 4.2.7.2.686 [id number] [facility] 2022-09-01 16:30:00 2022-09-01 17:00:00 Office Visit [facility]ury [facility] 1.2.840.114 350.1.13.10 4.2.7.2.686 [id number] [facility] 2022-09-01 16:30:00 2022-09-01 16:17:42 Outpatient R MAURY OLIVEIRA [facility] [id number] [facility] 2022-09-01 00:00:00 2022-09-01 00:00:00 Orders Only Doctor Unassigned, [place] [facility] 1.2.840.114 350.1.13.10 4.2.7.2.686 [id number] [facility] Results Test Description Test Time Test Comments Results Result Co mments Source [facility] GLUCOSE (AUTOMATED)2025-04-09 12:37:44* Test Item Value Reference Range Interpretation Comme nts POCT GLU (test code = 1583122377) 111 mg/dL 70-110 H Lab Interpretation (test cod e = 88937-8) Abnormal [facility] GLUCOSE (AUTOMATED)2025-04-09 01:00:14* Test Item Value Reference Range Interpretation Comme nts POCT GLU (test code = 6747637254) 152 mg/dL 70-110 H Lab Interpretation (test cod e = 16296-0) Abnormal [facility] GLUCOSE (AUTOMATED)2025-04-08 21:29:41* Test Item Value Reference Range Interpretation Comme nts POCT GLU (test code = 7029207069) 132 mg/dL 70-110 H Lab Interpretation (test cod e = 12833-8) Abnormal [facility] GLUCOSE (AUTOMATED)2025-04-08 16:31:47* Test Item Value Reference Range Interpretation Comme nts POCT GLU (test code = 7956327546) 157 mg/dL 70-110 H Lab Interpretation (test cod e = 78093-3) Abnormal [facility] GLUCOSE (AUTOMATED)2025-04-08 12:47:16* Test Item Value Reference Range Interpretation Comme nts POCT GLU (test code = 7891923427) 129 mg/dL 70-110 H Lab Interpretation (test cod e = 90336-6) Abnormal [facility] GLUCOSE (AUTOMATED)2025-04-08 02:13:13* Test Item Value Reference Range Interpretation Comme nts POCT GLU (test code = 0494400996) 112 mg/dL 70-110 H Lab Interpretation (test cod e = 01960-0) Abnormal [facility] GLUCOSE (AUTOMATED)2025-04-07 21:30:13* Test Item Value Reference Range Interpretation Comme nts POCT GLU (test code = 3473403284) 232 mg/dL 70-110 H Lab Interpretation (test cod e = 07957-2) [id number] 16:42:47* Test Item Value Reference Range Interpretation Comme nts TROPONIN I (test code = 4164302280) 0.002 ng/mL <=0.034 EMERY (test code = EMERY) Reference (Normal) Range (defined by the 99th percentile reference limit): <= 0.034 ng/mL Note: Cardiac troponin begins to rise 3-4 hours after the onset of ischemia. Repeat in 4-6 hours if the sample was drawn within 3-4 hours of the onset of the symptom and found normal. Diagnosis of myocardial injury is made with acute changes in cTn concentrations with at least one serial sample above the 99th percentile upper reference limit (URL), taken together with the patient's clinical presentation. Biotin has been reported to cause a negative bias, interpret results relative to patient's use of biotin. Lab Interpretation (test code = 22901-4) Normal [facility] [id number] 16:40:06* Test Item Value Reference Range Interpretation Comme nts NT-proBNP (test code = 16524-6) 198 pg/mL <=125 EMERY (test code = EMERY) Result Indeterminate-Consid er causes of NT-proBNP elevation other than Heart failure such as acute coronary syndrome, pulmonary embolism, pulmonary hypertension, sepsis, stroke, and renal dysfunction. Lab Interpretation (test code = 81549-3) Abnormal [facility]. METABOLIC PANEL (63205)2025-04-07 16:30:47* Test Item Value Reference Range Interpretation Comme nts NA (test code = 0204453005) 139 mmol/L 135-145 K (test code = 0211628628) 4.2 mmol/L 3.5-5.0 CL (test code = 5972865012) 103 mmol/L 98-108 CO2 TOTAL (test code = 0997464069) 27 mmol/L 23-31 AGAP (test code = 4308242984) 9 2-16 BUN (test code = 4665923045) 12 mg/dL 7-23 GLUCOSE (test code = 7171332672) 130 mg/dL 70-110 H CREATININE (test code = 2160-0) 0.88 mg/dL 0.60-1.25 TOTAL BILI (test code = 1226912835) 0.6 mg/dL 0.1-1.1 CALCIUM (test code = 6248096484) 9.4 mg/dL 8.6-10.6 T PROTEIN (test code = 9297767676) 6.8 g/dL 6.3-8.2 ALBUMIN (test code = 9653919095) 4.1 g/dL 3.5-5.0 ALK PHOS (test code = 1354727402) 78 U/L 34-122 ALTv (test code = 1742-6) 23 U/L 5-50 AST(SGOT) (test code = 0149497110) 21 U/L 13-40 eGFR (test code = 49278-1) 95.4 mL/min/1.73m2 CKD-EPI eGFR (2020). Assuming creatinine has been stable day-to-day for at least three months, the eGFR indicates Category G1 (>= 90 mL/min/1.73 m2) Lab Interpretation (test code = 24208-5) Abnormal [facility] WITH [id number] 16:19:29* Test Item Value Reference Range Interpretation Comme nts WBC (test code = 6690-2) 8.64 4.20-10.70 RBC (test code = 789-8) 3.78 4.26-5.52 L HGB (test code = 718-7) 12.2 g/dL 12.2-16.4 HCT (test code = 4544-3) 34.8 % 38.4-49.3 L MCV (test code = 787-2) 92.1 fL 81.7-95.6 MCH (test code = 785-6) 32.3 pg 26.1-32.7 MCHC (test code = 786-4) 35.1 g/dL 31.2-35.0 H RDW-SD (test code = 60367-7) 40.5 fL 38.5-51.6 RDW-CV (test code = 788-0) 12.2 % 12.1-15.4 PLT (test code = 777-3) 227 150-328 MPV (test code = 78543-8) 11.4 fL 9.8-13.0 NRBC/100 WBC (test code = 3986230871) 0 0.0-10.0 NRBC x10^3 (test code = 3087059808) See_Comment [Automated messa ge] The system which generated this result transmitted reference range: 10*3/?L. The reference range was not used to interpret this result as normal/abnormal. GRAN MAT (NEUT) % (test code = 770-8) 66.7 % IMM GRAN % (test code = 6907568382) 0.2 % LYMPH % (test code = 736-9) 22 % MONO % (test code = 5905-5) 7.2 % EOS % (test code = 713-8) 3.2 % BASO % (test code = 706-2) 0.7 % GRAN MAT x10^3(ANC) (test code = 3080743187) 5.76 10*3/uL 1.99-6.95 IMM GRAN x10^3 (test code = 1149149258) 0.00-0.06 LYMPH x10^3 (test code = 731-0) 1.9 10*3/uL 1.09-3.23 MONO x10^3 (test code = 742-7) 0.62 10*3/uL 0.36-1.02 EOS x10^3 (test code = 711-2) 0.28 10*3/uL 0.06-0.53 BASO x10^3 (test code = 704-7) 0.06 10*3/uL 0.01-0.09 Lab Interpretation (test code = 34361-4) [facility] [id number] 15:18:59PROCEDURE: XR CHEST 1 VW CLINICAL INDICATION: chest pain COMPARISON: 03/04/2025 FINDINGS: The lungs are partial expanded and clear. No pleural effusion or pneumothorax is seen. The cardiomediastinal silhouette is normal. No acute bony abnormality. [facility] GLUCOSE (AUTOMATED)2025-03-06 22:49:35* Test Item Value Reference Range Interpretation Comme [facility] POCT GLU (test code = 1781362708) 110 mg/dL 70-110 Lab Interpretation (test cod e = 93693-5) Normal [facility] GLUCOSE (AUTOMATED)2025-03-06 17:22:38* Test Item Value Reference Range Interpretation Comme [facility] POCT GLU (test code = 4663196239) 127 mg/dL 70-110 H Lab Interpretation (test cod e = 66290-0) Abnormal [facility] GLUCOSE (AUTOMATED)2025-03-06 13:37:31* Test Item Value Reference Range Interpretation Comme [facility] POCT GLU (test code = 9821435006) 112 mg/dL 70-110 H Lab Interpretation (test cod e = 93849-7) [facility]normal [facility] [id number] 01:52:53* Test Item Value Reference Range Interpretation Comme nts Height (test code = 9746507665) 68 in Weight (test code = 9908758427) 178 lbs Systolic BP (test code = 2437309463) 115 mmHg Diastolic BP (test code = 0104413340) 60 mmHg Heart Rate (test code = 6317463726) 54 bpm BSA (test code = 9609984403) 1.95 m2 Ao root diam (test code = 9180900847) 3.5 cm Aortic root (test code = 5113851355) 3.5 cm Ao root annulus (test code = 2084379142) 3.5 cm LVOT diameter (test code = 2484989634) 2.11 cm LVOT area (test code = 0183022073) 3.5 cm2 LA size (test code = 0760022481) 5 cm TR Peak Arnulfo (test code = 9923912305) 238.1 cm/s Triscuspid Valve Regurgitation Peak Gradient (test code = 7434322378) 22.7 mmHg Pulmonic Regurgitant End Max Velocity (test code = 6099818661) 84.7 cm/s PV REGURGITATION PEAK GRADIENT (test code = 5489377934) 15 mmHg PI dec slope (test code = 8091550020) 267.1 cm/s2 LAV(MOD-sp4) (test code = 8886903518) 58.5 mL MV Peak A Arnulfo (test code = 6418413984) 75.5 cm/s MV Peak E Arnulfo (test code = 7006228685) 83.3 cm/s E/A ratio (test code = 7413051593) 1.1 ratio E wave decelartion time (test code = 5892230644) 0.21 s MV Prop V (test code = 1640387386) 115.4 cm/s MV E/e' septal (test code = 9637999621) 8.1 cm/s TASV (test code = 6077122985) 7.1 cm/s LVOT stroke volume (test code = 2493785665) 88.2 cm3 LVOT peak arnulfo (test code = 4824345788) 124.2 cm/s LVOT mn grad (test code = 6791927601) 2.6 mmHg AV LVOT peak gradient (test code = 5631180279) 6.2 mmHg LVOT peak VTI (test code = 6831989695) 25.3 cm LV V1 mean (test code = 6988099550) 74.9 cm/s Aortic valve mean velocity (test code = 1088890263) 90.5 cm/s Ao peak arnulfo (test code = 6151562348) 131.5 cm/s Ao VTI (test code = 5440741131) 30.9 cm AV area by cont VTI (test code = 3348273842) 2.9 cm2 AV area peak arnulfo (test code = 2304503297) 3.3 cm2 Ao max PG (test code = 4034701747) 6.9 mm[Hg] AV peak gradient (test code = 2779547208) 6.9 mmHg AV valve area (test code = 1981285400) 2.9 cm2 AV mean gradient (test code = 1455436959) 3.6 mmHg Tapse (test code = 0472957148) 3.1 cm LA Volume Index (BP) (test code = 4530113203) 32.6 mL/m2 LA volume (BP) (test code = 2651514112) 63.4 mL LAV(MOD-sp2) (test code = 4727890883) 62.4 mL LVIDD (test code = 6760301425) 4.7 cm Left Ventricular End Diastolic Volume by Teichholz Method (test code = 8822518) 104.7 mL IVS (test code = 2995854207) 0.84 cm Interventricular Septum Diastolic Thickness by 2D (test code = 4292333) 0.84 cm LVPWD (test code = 2430955433) 0.95 cm LV RWT (test code = 7644576448) 0.4 LV mass (test code = 3156477685) 141.65 g LV Mass Index (test code = 0450030441) 72.6 g/m2 PW (test code = 0281718989) 0.95 cm 0.6-1.1 EF(Teich) (test code = 9490767820) 52 % LVIDS (test code = 7506631445) 3.5 cm Left Ventricular End Systolic Volume by Teichholz Method (test code = 9971761) 50.2 mL FS (test code = 6710701210) 27 % EF - 2D (test code = 69417673) 52 % Radiology Study observation (narrative) (test code = 77427-5) EMERY (test code = EMERY) ?Left?Ventricle: Left ventricle is mildly dilated. Normal wall thickness. Low normal systolic function with a visually estimated EF of 50 - 55%. Normal diastolic function. ?Right?Ventricle: Right ventricle size is normal. Normal systolic function. Left VentricleLeft ventricle is mildly dilated. Normal wall thickness. Low normal systolic function with a visually estimated EF of 50 - 55%. Normal diastolic function.Right VentricleRight ventricle size is normal. Normal systolic function.Left AtriumLeft atrium size is normal.Right AtriumRight atrium size is normal.IVC/SVCIVC diameter is less than or equal to 21 mm and decreases greater than 50% during inspiration; therefore the estimated right atrial pressure is normal (~0-5 mmHg).Mitral ValveMild posterior mitral annular calcification. Mild transvalvular regurgitation. No stenosis.Tricuspid ValveNot well visualized. Mild transvalvular regurgitation. No stenosis.Aortic ValveAortic valve opens well. Moderately thickened cusps. Moderately calcified cusps. Mild transvalvular regurgitation. No hemodynamically significant .Pulmonic ValveValve structure is normal. Mild to moderate transvalvular regurgitation. No stenosis.Ascending AortaNormal sized annulus and sinus of Valsalva.PericardiumTr ivial pericardial effusion present.Study DetailsStudy quality was adequate. A complete echocardiogram was performed using 2D, color flow Doppler and spectral Doppler. The apical, parasternal, subcostal and suprasternal views were obtained. 2 mL of Definity ultrasound enhancing agent used. [facility] GLUCOSE (AUTOMATED)2025-03-06 01:48:41* Test Item Value Reference Range Interpretation Comme [facility] POCT GLU (test code = [id number]) 172 mg/dL 70-110 H Lab Interpretation (test cod e = 95409-4) Abnormal [facility] GLUCOSE (AUTOMATED)2025-03-05 23:21:04* Test Item Value Reference Range Interpretation Comme [facility] [facility] (test code = 9731986461) 221 mg/dL 70-110 H Lab Interpretation (test cod e = 54828-8) Abnormal [facility] GLUCOSE (AUTOMATED)2025-03-05 17:06:34* Test Item Value Reference Range Interpretation Comme [facility] POCT GLU (test code = 3304740328) 181 mg/dL 70-110 H Lab Interpretation (test cod e = 58879-7) [facility]normal [facility]2025-03-05 15:20:25* Test Item Value Reference Range Interpretation Comme [facility] HGB A1C (test code = 4548-4) 6.1 % 4.0-5.7 H EMERY (test code = EMERY) Reference RangesNormal: <5.7%Prediabetes: 5.7 - 6.4%Diabetes: > 6.5% Lab Interpretation (test code = 26564-2) [facility]normal [facility]2025-[facility]-05 14:16:30* Test Item Value Reference Range Interpretation Comme nts POCT GLU (test code = 5151762668) 97 mg/dL 70-110 Lab Interpretation (test cod e = 55447-4) Normal [facility] CenterLAMSIC ACID WITH 2 HOUR [id number] 02:38:34* Test Item Value Reference Range Interpretation Comme nts LACTIC ACID (test code = 1771547835) 1.42 mmol/L 0.50-2.20 Lab Interpretation (test cod e = 96997-1) Normal [facility] Center[facility]ulating [id number] 01:22:38 * Test Item Value Reference Range Interpretation Comme nts TSH (test code = 3473050528) 0.71 0.45-4.70 Biotin has been reported to cause a negative bias, interpret results relative to patient's use of biotin. Lab Interpretation (test code = 30171-8) Normal [facility] Chest 1 [id number] 01:10:17CHEST ONE VIEW ORDERING PHYSICIAN: RONNIE SALAZAR CLINICAL HISTORY:weakness ; TECHNIQUE: Single frontal radiograph of the chest was obtained. COMPARISON: None available. FINDINGS: Cardiac silhouette is within normal limits. No focal lung consolidation. Nopneumothorax. No acute osseous abnormality.[facility] ACUTE STROKE ANGIOGRAM [id number] 23:38:57CT STROKE ANGIOGRAM HEAD, CT STROKE ANGIOGRAM NECK HISTORY: Weakness of arms and legs, more pronounced on the left side.Bilateral leg numbness. COMPARISON: Same day prior noncontrast head CT TECHNIQUE: CT angiographic images of the head and neck were obtained afteradministration of IV contrast. Multiplanar reformats including maximumintensity projection images submitted for review. FINDINGS: CTA HEAD: The PICA origin is visualized on the left. AICA-PICA variant is present onthe right. The basilar artery is normal in caliber. The superior cerebellararteries are patent. The posterior cerebral arteries are patent. The distal cervical, petrous, cavernous and supraclinoid internal carotidsegments are patent. Vascular calcifications in the carotid siphons resultin no more than mild luminal narrowing. The anterior and middle cerebral arteries are patent. An anteriorcommunicating artery is visualized. The dural venous sinuses are patent. CTA NECK: Conventional three-vessel arch anatomy. Atherosclerosis of the aortic arch. ? The great vessel ostia are patent. The bilateral subclavian arteries are patent. The common carotid arteries and bilateral cervical internal carotidarteries are patent. Atherosclerosis of the carotid bulbs noted bilaterallywithout causing significant stenosis. The vertebral artery ostia patent. Calcified atherosclerosis of theintradural left vertebral artery without flow-limiting stenosis. The visualized lung nieves are unremarkable. Visualized neck soft tissuesare unremarkable. ?Enlarged right thyroid gland likely due to underlyingnodules There are degenerative changes of the spine.[facility] ACUTE STROKE ANGIOGRAM [id number] 23:38:57CT STROKE ANGIOGRAM HEAD, CT STROKE ANGIOGRAM NECK HISTORY: Weakness of arms and legs, more pronounced on the left side.Bilateral leg numbness. COMPARISON: Same day prior noncontrast head CT TECHNIQUE: CT angiographic images of the head and neck were obtained afteradministration of IV contrast. Multiplanar reformats including maximumintensity projection images submitted for review. FINDINGS: CTA HEAD: The PICA origin is visualized on the left. AICA-PICA variant is present onthe right. The basilar artery is normal in caliber. The superior cerebellararteries are patent. The posterior cerebral arteries are patent. The distal cervical, petrous, cavernous and supraclinoid internal carotidsegments are patent. Vascular calcifications in the carotid siphons resultin no more than mild luminal narrowing. The anterior and middle cerebral arteries are patent. An anteriorcommunicating artery is visualized. The dural venous sinuses are patent. CTA NECK: Conventional three-vessel arch anatomy. Atherosclerosis of the aortic arch. ? The great vessel ostia are patent. The bilateral subclavian arteries are patent. The common carotid arteries and bilateral cervical internal carotidarteries are patent. Atherosclerosis of the carotid bulbs noted bilaterallywithout causing significant stenosis. The vertebral artery ostia patent. Calcified atherosclerosis of theintradural left vertebral artery without flow-limiting stenosis. The visualized lung nieves are unremarkable. Visualized neck soft tissuesare unremarkable. ?Enlarged right thyroid gland likely due to underlyingnodules There are degenerative changes of the spine.[facility] ACUTE STROKE HEAD WO [id number] 23:35:47CT STROKE HEAD WO CONTRAST HISTORY: Weakness of arms and legs, more pronounced on the left side.Bilateral leg numbness. COMPARISON: None TECHNIQUE: Noncontrast axial images of the head, with coronal and sagittalreformats. FINDINGS: The ventricles and cerebral sulci are normal in caliber and configuration.No hydrocephalus, midline shift or pathological extra-axial fluidcollection is present. The basal cisterns are unremarkable. There is no acute intracranial hemorrhage or significant mass effect. Noparenchymal attenuation abnormality. The green-white matter differentiationis preserved. The mastoid air cells and paranasal air sinuses are clear. The calvariumand central skull base are unremarkable. [facility] GLUCOSE (AUTOMATED)2025-03-04 23:24:29* Test Item Value Reference Range Interpretation Comme [facility] POCT GLU (test code = 6810100667) 99 mg/dL 70-110 Lab Interpretation (test cod e = 90615-8) Normal [facility] Glucose (Age >30 Days) - Code Stroke 2025-03-04 23:23:00* Test Item Value Reference Range Interpretation Comme [facility] POCT Glu (age>30days) (test code = 3342) 99 mg/dL 70-110 Lab Interpretation (test cod e = 51235-3) Normal [facility] CenterProthrombin Time / INR - Code [id number] 23:19:06* Test Item Value Reference Range Interpretation Comme [facility] PROTIME PATIENT (test code = 5964-2) 12.2 10.1-12.6 INR (test code = 6301-6) 1 <=4.5 Normal INR <1.1; Warfarin Therapeutic range 2.0 to 3.0 or 2.5 to 3.5, depending upon the indications. Lab Interpretation (test code = 59317-2) Normal [facility] CenteraPTT - Code [id number] 23:19:06* Test Item Value Reference Range Interpretation Comme [facility] APTT Patient (test code = 3173-2) 30 26-36 EMERY (test code = EMERY) The [facility] patient population mean normal value for aPTT is 30 seconds. Lab Interpretation (test code = 96627-2) Normal [facility] CenterTroponin I - Code [id number] 23:10:44* Test Item Value Reference Range Interpretation Comme nts TROPONIN I (test code = 6741439968) 0.003 ng/mL <=0.034 EMERY (test code = EMERY) Reference (Normal) Range (defined by the 99th percentile reference limit): <= 0.034 ng/mL Note: Cardiac troponin begins to rise 3-4 hours after the onset of ischemia. Repeat in 4-6 hours if the sample was drawn within 3-4 hours of the onset of the symptom and found normal. Diagnosis of myocardial injury is made with acute changes in cTn concentrations with at least one serial sample above the 99th percentile upper reference limit (URL), taken together with the patient's clinical presentation. Biotin has been reported to cause a negative bias, interpret results relative to patient's use of biotin. Lab Interpretation (test code = 42288-6) Normal [facility] Metabolic Panel (NA, K, CL, CO2, Glucose, BUN, Creatinine, CA) - Code [id number] 22:59:17* Test Item Value Reference Range Interpretation Comme nts NA (test code = 4211644645) 139 mmol/L 135-145 K (test code = 9224924924) 4.1 mmol/L 3.5-5.0 CL (test code = 5368128215) 103 mmol/L 98-108 CO2 TOTAL (test code = 4875501267) 29 mmol/L 23-31 AGAP (test code = 5236995406) 7 2-16 BUN (test code = 4848686471) 21 mg/dL 7-23 GLUCOSE (test code = 6501181377) 112 mg/dL 70-110 H CREATININE (test code = 2160-0) 1.04 mg/dL 0.60-1.25 CALCIUM (test code = 4324142209) 9.4 mg/dL 8.6-10.6 eGFR (test code = 24803-4) 79.7 mL/min/1.73m2 CKD-EPI eGFR (2020). Assuming creatinine has been stable day-to-day for at least three months, the eGFR indicates Category G2 (60 - 89 mL/min/1.73 m2) Lab Interpretation (test code = 84527-1) Abnormal [facility] without Diff - Code [id number] 22:47:57* Test Item Value Reference Range Interpretation Comme nts WBC (test code = 6690-2) 9.26 4.20-10.70 RBC (test code = 789-8) 3.73 4.26-5.52 L HGB (test code = 718-7) 12.1 g/dL 12.2-16.4 L HCT (test code = 4544-3) 35.2 % 38.4-49.3 L MCH (test code = 785-6) 32.4 pg 26.1-32.7 MCV (test code = 787-2) 94.4 fL 81.7-95.6 MCHC (test code = 786-4) 34.4 g/dL 31.2-35.0 PLT (test code = 777-3) 188 150-328 MPV (test code = 76146-8) 11.2 fL 9.8-13.0 RDW-CV (test code = 788-0) 12.3 % 12.1-15.4 RDW-SD (test code = 14877-3) 42.8 fL 38.5-51.6 NRBC x10^3 (test code = 8816516371) See_Comment [Automated [employer] ge] The system which generated this result transmitted reference range: 10*3/?L. The reference range was not used to interpret this result as normal/abnormal. NRBC/100 WBC (test code = 3833542240) 0 0.0-10.0 IPF % (test code = 4334019700) Lab Interpretation (test code = 44838-7) [facility]normal [facility]2025-03-04 22:42:32* Test Item Value Reference Range Interpretation Comme nts POCT GLU (test code = 2668335606) 118 mg/dL 70-110 H Lab Interpretation (test cod e = 60627-4) Abnormal [facility] CenterRHEUMATOID FACTOR [id number] 15:07:00* Test Item Value Reference Range Interpretation Comme nts RHEUMATOID FACTOR SCREEN (test code = RA) <10.0 IU/mL <14.0 Performed At: [facility] [id number] Kyle L MD Ph:[phone] ANTINUCLEAR ANTIBODIES [id number] 15:07:00* Test Item Value Reference Range Interpretation Comme nts FLIP TITER (test code = ANATITR) FLIP COMMENT (test code = ANACOM) FLIP HOMOGENEOUS PATTERN (test code = ANAHOM) Negative See_Comment Negative <1:80 B orderline 1:80 Positive >1:80ICAP nomenclature: AC-0For more information about Hep-2 cell patterns useANApatterns.org, the official website for theInternational Consensus on Antinuclear Antibody (FLIP)Patterns (ICAP).Performed At: [facility] [address] [id number] Kyle L MD Ph:[phone] [Automated message] The system which generated this result transmitted reference range: (). The reference range was not used to interpret this result as normal/abnormal. GLUCOSE BEDSIDE [id number] 12:07:00* Test Item Value Reference Range Interpretation Comme nts GLUCOSE BEDSIDE TESTING (vikas t code = GLUBED) 147 mg/dL 70-110 H GLUCOSE BEDSIDE [id number] 05:51:00* Test Item Value Reference Range Interpretation Comme nts GLUCOSE BEDSIDE TESTING (vikas t code = GLUBED) 124 mg/dL 70-110 H BASIC METABOLIC [id number] 04:08:00* Test Item Value Reference Range Interpretation Comme nts SODIUM (test code = NA) 142 mmol/L 136-145 N POTASSIUM (test code = K) 4.2 mmol/L 3.4-5.0 N CHLORIDE (test code = CL) 106 mmol/L 98-107 N CARBON DIOXIDE (test code = CO2) 28 mmol/L 21-32 N ANION GAP (test code = GAP) 8 GAP calc 4-15 N GLUCOSE (test code = GLU) 118 MG/DL 70-110 H BLOOD UREA NITROGEN (test code = BUN) 7 MG/DL 7-18 N GLOMERULAR FILTRATION RATE (test code = GFR) >=60 max estimate estGFR >60 The Glomerular Filtration Rate is a calculated parameterbased on serum Creatinine, patient age and sex. GFR valuesless than 60 mL/min/1.73 square meters are indicative ofChronic Kidney Disease. Values less than 15 mL/min/1.73square meters indicate Kidney failure. The calculation forGFR is based on the CKD-EPI (2020) calculation. This formulais race indifferent and is the recommended formula for GFRby the National Kidney Foundation for Adults.The GFR will not calculate if the sex is unknown or if thepatient's age is <18 years. CREATININE (test code = CREAT) 0.9 MG/DL 0.6-1.0 N CALCIUM (test code = CA) 8.5 MG/DL 8.5-10.1 N [id number] 04:08:00* Test Item Value Reference Range Interpretation Comme nts PHOSPHOROUS (test code = PHOS) 4.2 MG/DL 2.5-4.9 N [id number] 04:08:00* Test Item Value Reference Range Interpretation Comme nts MAGNESIUM (test code = MAG) 2.1 MG/DL 1.8-2.4 N CBC W/AUTO [id number] 03:55:00* Test Item Value Reference Range Interpretation Comme nts WHITE BLOOD CELL (test code = WBC) 8.2 K/mm3 3.5-11.0 N RED BLOOD CELL (test code = RBC) 3.79 M/mm3 4.70-6.10 L HEMOGLOBIN (test code = HGB) 11.9 G/DL 12.3-15.9 L HEMATOCRIT (test code = HCT) 34.3 % 35.8-46.7 L MEAN CELL VOLUME (test code = MCV) 90.5 Fl 86.3-98.9 N MEAN CELL HGB (test code = MCH) 31.4 pg 28.9-34.4 N MEAN CELL HGB CONCETRATION (test code = MCHC) 34.7 G/DL 32.1-34.5 H RED CELL DISTRIBUTION WIDTH (test code = RDW) 12.5 SD 11.5-14.5 N PLATELET COUNT (test code = PLT) 190 K/mm3 150-450 N MEAN PLATELET VOLUME (test c ode = MPV) 10.70 fL 7.0-9.6 H NEUTROPHIL % (test code = NT%) 55.6 % 40-76 N IMMATURE GRANULOCYTE % (test code = IG%) 0.2 % 0.0-5.0 N LYMPHOCYTE % (test code = LY%) 33.4 % 20.5-51.1 N MONOCYTE % (test code = MO%) 6.2 % 1.7-9.3 N EOSINOPHIL % (test code = EO%) 4.0 % 0.0-6.0 N BASOPHIL % (test code = BA%) 0.6 % 0.0-2.0 N NUCLEATED RBC % (test code = NRBC%) 0.0 /100WBC% 0.0-1.0 N NEUTROPHIL # (test code = NT#) 4.5 K/mm3 1.8-7.6 N IMMATURE GRANULOCYTE # (test code = IG#) 0.02 x10 3/uL 0.00-0.03 N LYMPHOCYTE # (test code = LY#) 2.7 K/mm3 0.6-3.0 N MONOCYTE # (test code = MO#) 0.5 K/mm3 0.2-1.5 N EOSINOPHIL # (test code = EO#) 0.3 K/mm3 0.0-0.4 N BASOPHIL # (test code = BA#) 0.1 K/mm3 0.0-0.2 N NUCLEATED RBC # (test code = NRBC#) 0.0 K/mm3 0.00-0.01 N GLUCOSE BEDSIDE [id number] 00:57:00* Test Item Value Reference Range Interpretation Comme nts GLUCOSE BEDSIDE TESTING (vikas t code = GLUBED) 121 mg/dL 70-110 H GLUCOSE BEDSIDE [id number] 20:24:00* Test Item Value Reference Range Interpretation Comme nts GLUCOSE BEDSIDE TESTING (vikas t code = GLUBED) 82 mg/dL 70-110 N GLUCOSE BEDSIDE [id number] 18:01:00* Test Item Value Reference Range Interpretation Comme nts GLUCOSE BEDSIDE TESTING (vikas t code = GLUBED) 185 mg/dL 70-110 H SED RATE [id number] 14:21:00* Test Item Value Reference Range Interpretation Comme nts SED RATE WESTERGREN (test co de = SEDW) 9 mm/hr 0-15 N SED [id number] 14:21:00* Test Item Value Reference Range Interpretation Comme nts SED RATE (test code = SEDW) 9 mm/hr 0-15 C REACTIVE [id number] 11:40:00* Test Item Value Reference Range Interpretation Comme nts C REACTIVE PROTEIN (test cod e = CRP) 0.0 MG/DL 0-0.9 N GLUCOSE BEDSIDE [id number] 06:45:00* Test Item Value Reference Range Interpretation Comme nts GLUCOSE BEDSIDE TESTING (vikas t code = GLUBED) 158 mg/dL 70-110 H BASIC METABOLIC [id number] 05:40:00* Test Item Value Reference Range Interpretation Comme nts SODIUM (test code = NA) 143 mmol/L 136-145 N POTASSIUM (test code = K) 3.5 mmol/L 3.4-5.0 N CHLORIDE (test code = CL) 107 mmol/L 98-107 N CARBON DIOXIDE (test code = CO2) 26 mmol/L 21-32 N ANION GAP (test code = GAP) 10 GAP calc 4-15 N GLUCOSE (test code = GLU) 140 MG/DL 70-110 H BLOOD UREA NITROGEN (test code = BUN) 7 MG/DL 7-18 N GLOMERULAR FILTRATION RATE (test code = GFR) >=60 max estimate estGFR >60 The Glomerular Filtration Rate is a calculated parameterbased on serum Creatinine, patient age and sex. GFR valuesless than 60 mL/min/1.73 square meters are indicative ofChronic Kidney Disease. Values less than 15 mL/min/1.73square meters indicate Kidney failure. The calculation forGFR is based on the CKD-EPI (2020) calculation. This formulais race indifferent and is the recommended formula for GFRby the National Kidney Foundation for Adults.The GFR will not calculate if the sex is unknown or if thepatient's age is <18 years. CREATININE (test code = CREAT) 0.8 MG/DL 0.6-1.0 N CALCIUM (test code = CA) 8.9 MG/DL 8.5-10.1 N [id number] 05:40:00* Test Item Value Reference Range Interpretation Comme nts PHOSPHOROUS (test code = PHOS) 3.6 MG/DL 2.5-4.9 N [id number] 05:40:00* Test Item Value Reference Range Interpretation Comme nts MAGNESIUM (test code = MAG) 1.8 MG/DL 1.8-2.4 N CBC W/AUTO [id number] 05:14:00* Test Item Value Reference Range Interpretation Comme nts WHITE BLOOD CELL (test code = WBC) 7.5 K/mm3 3.5-11.0 N RED BLOOD CELL (test code = RBC) 3.89 M/mm3 4.70-6.10 L HEMOGLOBIN (test code = HGB) 12.0 G/DL 12.3-15.9 L HEMATOCRIT (test code = HCT) 35.2 % 35.8-46.7 L MEAN CELL VOLUME (test code = MCV) 90.5 Fl 86.3-98.9 N MEAN CELL HGB (test code = MCH) 30.8 pg 28.9-34.4 N MEAN CELL HGB CONCETRATION (test code = MCHC) 34.1 G/DL 32.1-34.5 N RED CELL DISTRIBUTION WIDTH (test code = RDW) 12.5 SD 11.5-14.5 N PLATELET COUNT (test code = PLT) 194 K/mm3 150-450 N MEAN PLATELET VOLUME (test c ode = MPV) 10.80 fL 7.0-9.6 H NEUTROPHIL % (test code = NT%) 55.6 % 40-76 N IMMATURE GRANULOCYTE % (test code = IG%) 0.3 % 0.0-5.0 N LYMPHOCYTE % (test code = LY%) 33.3 % 20.5-51.1 N MONOCYTE % (test code = MO%) 6.3 % 1.7-9.3 N EOSINOPHIL % (test code = EO%) 3.7 % 0.0-6.0 N BASOPHIL % (test code = BA%) 0.8 % 0.0-2.0 N NUCLEATED RBC % (test code = NRBC%) 0.0 /100WBC% 0.0-1.0 N NEUTROPHIL # (test code = NT#) 4.2 K/mm3 1.8-7.6 N IMMATURE GRANULOCYTE # (test code = IG#) 0.02 x10 3/uL 0.00-0.03 N LYMPHOCYTE # (test code = LY#) 2.5 K/mm3 0.6-3.0 N MONOCYTE # (test code = MO#) 0.5 K/mm3 0.2-1.5 N EOSINOPHIL # (test code = EO#) 0.3 K/mm3 0.0-0.4 N BASOPHIL # (test code = BA#) 0.1 K/mm3 0.0-0.2 N NUCLEATED RBC # (test code = NRBC#) 0.0 K/mm3 0.00-0.01 N GLUCOSE BEDSIDE [id number] 00:25:00* Test Item Value Reference Range Interpretation Comme nts GLUCOSE BEDSIDE TESTING (vikas t code = GLUBED) 151 mg/dL 70-110 H GLUCOSE BEDSIDE [id number] 17:22:00* Test Item Value Reference Range Interpretation Comme nts GLUCOSE BEDSIDE TESTING (vikas t code = GLUBED) 158 mg/dL 70-110 H GLUCOSE BEDSIDE [id number] 11:23:00* Test Item Value Reference Range Interpretation Comme nts GLUCOSE BEDSIDE TESTING (vikas t code = GLUBED) 155 mg/dL 70-110 H GLUCOSE BEDSIDE [id number] 06:37:00* Test Item Value Reference Range Interpretation Comme nts GLUCOSE BEDSIDE TESTING (vikas t code = GLUBED) 155 mg/dL 70-110 H CBC W/AUTO [id number] 03:37:00* Test Item Value Reference Range Interpretation Comme nts WHITE BLOOD CELL (test code = WBC) 8.2 K/mm3 3.5-11.0 N RED BLOOD CELL (test code = RBC) 3.71 M/mm3 4.70-6.10 L HEMOGLOBIN (test code = HGB) 11.6 G/DL 12.3-15.9 L HEMATOCRIT (test code = HCT) 33.9 % 35.8-46.7 L MEAN CELL VOLUME (test code = MCV) 91.4 Fl 86.3-98.9 N MEAN CELL HGB (test code = MCH) 31.3 pg 28.9-34.4 N MEAN CELL HGB CONCETRATION (test code = MCHC) 34.2 G/DL 32.1-34.5 N RED CELL DISTRIBUTION WIDTH (test code = RDW) 12.6 SD 11.5-14.5 N PLATELET COUNT (test code = PLT) 208 K/mm3 150-450 N MEAN PLATELET VOLUME (test c ode = MPV) 11.00 fL 7.0-9.6 H NEUTROPHIL % (test code = NT%) 61.5 % 40-76 IMMATURE GRANULOCYTE % (test code = IG%) 0.2 % 0.0-5.0 N LYMPHOCYTE % (test code = LY%) 29.4 % 20.5-51.1 N MONOCYTE % (test code = MO%) 5.5 % 1.7-9.3 N EOSINOPHIL % (test code = EO%) 2.8 % 0.0-6.0 N BASOPHIL % (test code = BA%) 0.6 % 0.0-2.0 N NUCLEATED RBC % (test code = NRBC%) 0.0 /100WBC% 0.0-1.0 N NEUTROPHIL # (test code = NT#) 5.0 K/mm3 1.8-7.6 N IMMATURE GRANULOCYTE # (test code = IG#) 0.02 x10 3/uL 0.00-0.03 N LYMPHOCYTE # (test code = LY#) 2.4 K/mm3 0.6-3.0 N MONOCYTE # (test code = MO#) 0.5 K/mm3 0.2-1.5 N EOSINOPHIL # (test code = EO#) 0.2 K/mm3 0.0-0.4 N BASOPHIL # (test code = BA#) 0.1 K/mm3 0.0-0.2 N NUCLEATED RBC # (test code = NRBC#) 0.0 K/mm3 0.00-0.01 N [id number] 03:27:00* Test Item Value Reference Range Interpretation Comme nts PHOSPHOROUS (test code = PHOS) 3.4 MG/DL 2.5-4.9 N [id number] 03:27:00* Test Item Value Reference Range Interpretation Comme nts MAGNESIUM (test code = MAG) 2.0 MG/DL 1.8-2.4 N TROP-I HIGH [id number] 03:27:00* Test Item Value Reference Range Interpretation Comme nts TROP-I HIGH SENSITIVITY (test code = TROPIHS) 12.7 ng/L 0-78 N CAUTION: Units o f the current test methodology (ng/L) differfrom the prior test methodology (ng/mL) by a factor of 1000. 99th Percentile Upper Reference Limit (URL):Females: 54 ng/LMales: 79 ng/L In order to distinguish acute elevations of high sensitivitytroponin from other clinical conditions, the FourthUniversal Definition of Myocardial Infarction stressesclinical assessment and the demonstration of a rise and/orfall in serial troponin results above the URL. Results from different methodologies should not be comparedto one another as quantitative results and URLs may varyby method. BASIC METABOLIC [id number] 03:24:00* Test Item Value Reference Range Interpretation Comme nts SODIUM (test code = NA) 141 mmol/L 136-145 N POTASSIUM (test code = K) 3.6 mmol/L 3.4-5.0 N CHLORIDE (test code = CL) 104 mmol/L 98-107 N CARBON DIOXIDE (test code = CO2) 29 mmol/L 21-32 N ANION GAP (test code = GAP) 8 GAP calc 4-15 N GLUCOSE (test code = GLU) 229 MG/DL 70-110 H BLOOD UREA NITROGEN (test code = BUN) 11 MG/DL 7-18 N GLOMERULAR FILTRATION RATE (test code = GFR) >=60 max estimate estGFR >60 The Glomerular Filtration Rate is a calculated parameterbased on serum Creatinine, patient age and sex. GFR valuesless than 60 mL/min/1.73 square meters are indicative ofChronic Kidney Disease. Values less than 15 mL/min/1.73square meters indicate Kidney failure. The calculation forGFR is based on the CKD-EPI (2020) calculation. This formulais race indifferent and is the recommended formula for GFRby the National Kidney Foundation for Adults.The GFR will not calculate if the sex is unknown or if thepatient's age is <18 years. CREATININE (test code = CREAT) 1.0 MG/DL 0.6-1.0 N CALCIUM (test code = CA) 8.9 MG/DL 8.5-10.1 N LIPID PROFILE (CORONARY RISK)2024-08-05 03:24:00* Test Item Value Reference Range Interpretation Comme nts TRIGLYCERIDES (test code = TRIG) 191 MG/DL 0-150 H CHOLESTEROL (test code = CHOL) 80 MG/DL 133-200 L CHOLESTEROL/HDL RATIO (test code = CHOLHDL) 2.22 RATIO See_Comment RISK ASSOC IATED WITH CHOL/HDL RATIOS: RISK MALE FEMALE1/2 AVERAGE 3.43 3.27AVERAGE 4.97 4.442X AVERAGE 9.55 7.053X AVERAGE 23.39 11.04 NOTE THAT THE REFERENCE VALUE IS RELATED TO RISK LEVELS ASRECOMMENDED BY THE [facility]. [Automated message] The system which generated this result transmitted reference range: 0-. The reference range was not used to interpret this result as normal/abnormal. HDL CHOLESTEROL (test code = HDL) 36 MG/DL See_Comment L [Automated [employer]] The system which generated this result transmitted reference range: 60-. The reference range was not used to interpret this result as normal/abnormal. NON-HDL CHOLESTEROL (test code = NHDL) 44 mg/dL <130 LIPOPROTEIN LDL (test code = LDL) 39 MG/DL 0-129 N LDL/HDL (test code = LDL/HDL) 1.08 Ratio See_Comment L [Automated [employer]] The system which generated this result transmitted reference range: 1.48-3.22 Avg. The reference range was not used to interpret this result as normal/abnormal. [id number] 03:22:00* Test Item Value Reference Range Interpretation Comme nts GLYCOSYLATED HEMOGLOBIN (HA1 C) (test code = GLYHGB) 6.5 % A1C 4.8-6.0 H ESTIMATED AVERAGE GLUCOSE (t est code = EAG) 140 MG/DLest GLUCOSE BEDSIDE [id number] 00:41:00* Test Item Value Reference Range Interpretation Comme nts GLUCOSE BEDSIDE TESTING (vikas t code = GLUBED) 170 mg/dL 70-110 H DRUGS OF ABUSE SCREEN [id number] 22:47:00* Test Item Value Reference Range Interpretation Comme nts URN COCAINE (test code = COCAURN) NEGATIVE SCcutoff See_Comment UNCONFIRMED SCREENING RESULTS SHOULD NOT BE USED FORNON-MEDICAL PURPOSES. [Automated message] The system which generated this result transmitted reference range: <300 NG/ML. The reference range was not used to interpret this result as normal/abnormal. URN CANNABINOIDS (test code = CANNABURN) POSITIVE SCcutoff See_Comment A UNCONFIRMED SCREENING RESULTS SHOULD NOT BE USED FORNON-MEDICAL PURPOSES. [Automated message] The system which generated this result transmitted reference range: <50 NG/ML. The reference range was not used to interpret this result as normal/abnormal. URN AMPHETAMINE (test code = AMPHETURN) NEGATIVE SCcutoff See_Comment UNCONFIRMED SCREENING RESULTS SHOULD NOT BE USED FORNON-MEDICAL PURPOSES. [Automated message] The system which generated this result transmitted reference range: <1000 NG/ML. The reference range was not used to interpret this result as normal/abnormal. URN BARBITURATE (test code = BARBITURN) NEGATIVE SCcutoff See_Comment UNCONFIRMED SCREENING RESULTS SHOULD NOT BE USED FORNON-MEDICAL PURPOSES. [Automated message] The system which generated this result transmitted reference range: <200 NG/ML. The reference range was not used to interpret this result as normal/abnormal. URN BENZODIAZEPINE (test code = BENZOURN) NEGATIVE SCcutoff See_Comment UNCONFIRMED SCREENING RESULTS SHOULD NOT BE USED FORNON-MEDICAL PURPOSES. [Automated message] The system which generated this result transmitted reference range: <200 NG/ML. The reference range was not used to interpret this result as normal/abnormal. URN OPIATES (test code = OPIATURN) NEGATIVE SCcutoff See_Comment UNCONFIRMED SCREENING RESULTS SHOULD NOT BE USED FORNON-MEDICAL PURPOSES. [Automated message] The system which generated this result transmitted reference range: <300 NG/ML. The reference range was not used to interpret this result as normal/abnormal. URN PHENCYCLIDINE (PCP) (test code = PHENCURN) NEGATIVE SCcutoff See_Comment UNCONFIRMED SCREENING RESULTS SHOULD NOT BE USED FORNON-MEDICAL PURPOSES. [Automated message] The system which generated this result transmitted reference range: <25 NG/ML. The reference range was not used to interpret this result as normal/abnormal. URN METHADONE (test code = METHAURN) NEGATIVE SCcutoff See_Comment UNCONFIRMED SCREENING RESULTS SHOULD NOT BE USED FORNON-MEDICAL PURPOSES. [Automated message] The system which generated this result transmitted reference range: <300 NG/ML. The reference range was not used to interpret this result as normal/abnormal. CREATINE KINASE (CK)2024-08-04 21:13:00* Test Item Value Reference Range Interpretation Comme nts CREATINE KINASE (CK) (test c ode = CK) 41 Unit/L 21-215 N [id number] 21:13:00* Test Item Value Reference Range Interpretation Comme nts MAGNESIUM (test code = MAG) 1.9 MG/DL 1.8-2.4 N TROP-I HIGH [id number] 21:13:00* Test Item Value Reference Range Interpretation Comme nts TROP-I HIGH SENSITIVITY (test code = TROPIHS) 12.0 ng/L 0-78 N CAUTION: Units o f the current test methodology (ng/L) differfrom the prior test methodology (ng/mL) by a factor of 1000. 99th Percentile Upper Reference Limit (URL):Females: 54 ng/LMales: 79 ng/L In order to distinguish acute elevations of high sensitivitytroponin from other clinical conditions, the FourthUniversal Definition of Myocardial Infarction stressesclinical assessment and the demonstration of a rise and/orfall in serial troponin results above the URL. Results from different methodologies should not be comparedto one another as quantitative results and URLs may varyby method. LACTIC [id number] 21:13:00* Test Item Value Reference Range Interpretation Comme nts LACTIC ACID (test code = LACT) 0.9 mmol/L 0.4-1.9 N [id number] 21:13:00* Test Item Value Reference Range Interpretation Comme nts PHOSPHOROUS (test code = PHOS) 4.0 MG/DL 2.5-4.9 N GLUCOSE BEDSIDE [id number] 18:59:00* Test Item Value Reference Range Interpretation Comme nts GLUCOSE BEDSIDE TESTING (vikas t code = GLUBED) 130 mg/dL 70-110 H GLUCOSE BEDSIDE [id number] 15:50:00* Test Item Value Reference Range Interpretation Comme nts GLUCOSE BEDSIDE TESTING (vikas t code = GLUBED) 157 mg/dL 70-110 H Consult Notes Date/Time Note Provider Source 2025-04-08 13:04:19 Associated Order(s): CONSULT CARDIOLOGY [facility] Cardiology Consult Note Patient: Bob Abbott Date of : 1960 Date of service: 04/08/2025 Primary Care Physician: [facility] Miriam [facility] CHIEF COMPLAINT: Chief Complaint Patient presents with Chest Pain HISTORY OF PRESENT ILLNESS: Bob Abbott is a 64 year old male presented to the ER for evaluation for chest pain. History from patient. Patient seen and examined in the room. Pertinent cardiac related history reviewed from chart History of Present Illness The patient is a 64-year-old male who presented to the ER for evaluation of chest pain. He was recently admitted to the [facility] for fatigue and weakness, during which bradycardia and orthostatic hypotension were noted. No advanced AV blocks or pauses were observed, and conservative medical management was recommended with plans for outpatient EP evaluation. Since discharge from the [facility] in 02/2025, he reports worsening chest discomfort and shortness of breath, classified as NYHA class II. Last week, he was admitted to the ER for bronchospasm, which improved his breathing, but he continues to experience chest pain with minimal exertion that has been gradually increasing over the past few weeks. He does not report any chest pain at rest. These symptoms are concerning as they remind him of a previous episode when he had a stent placed in the LAD. He was previously seen by Dr. Edmond and underwent a Lexiscan stress test, which was abnormal, leading to a PCI procedure. Since then, he has not followed up with cardiology or had a stress test. He reports compliance with his medication. No chest pain at rest. No PND or orthopnea. No pedal edema. No exertional palpitations or palpitations at rest. No syncopal attacks. History of coronary artery disease with prior stent placement, TIA, severe peripheral neuropathy, type 2 diabetes, hypertension, high cholesterol, BPH, mild cognitive impairment, and anxiety/depression PAST MEDICAL HISTORY Past Medical History: Diagnosis Date Anxiety disorder, unspecified Bipolar disorder, unspecified BPH (benign prostatic hyperplasia) CAD (coronary artery disease) CVA (cerebral vascular accident) Depression Mild cognitive impairment Peripheral neuropathy PTSD (post-traumatic stress disorder) Past Surgical History: Procedure Laterality Date PCI-STENT LAD THYROIDECTOMY Left Family History Problem Relation Age of Onset Brain Cancer Mother Diabetes Mother Dementia Mother Heart Mother Hypertension Mother Lung Cancer Father Dementia Father Diabetes Father Heart Father Heart Maternal Grandfather SOCIAL HISTORY Social History Socioeconomic History Marital status: Tobacco Use Smoking status: Former Types: Cigarettes Smokeless tobacco: Never Tobacco comments: 1 pack per week for 50 years Substance and Sexual Activity Alcohol use: Yes Comment: socially Drug use: Never Social Drivers of Health Food Insecurity: No Food Insecurity (03/05/2025) NCSS - Food Insecurity Worried About Running Out of Food in the Last Year: No Ran Out of Food in the Last Year: No Transportation Needs: No Transportation Needs (03/05/2025) NCSS - Transportation Lack of Transportation: No Housing Stability: Not At Risk (03/05/2025) NCSS - Housing/Utilities Has Housing: Yes Worried About Losing Housing: No Unable to Get Utilities: No ALLERGIES Allergies Allergen Reactions Pregabalin Other - See comments Vision changes MEDICATIONS Current Discharge Medication List STOP taking these medications atorvastatin 40 mg tablet Comments: Reason for Stopping: calcitrioL 0.25 mcg capsule Comments: Reason for Stopping: clopidogreL 75 mg tablet Comments: Reason for Stopping: DULoxetine 60 mg capsule Comments: Reason for Stopping: gabapentin 300 mg capsule Comments: Reason for Stopping: insulin glargine 100 unit/mL injection Comments: Reason for Stopping: sennosides 8.6 mg tablet Comments: Reason for Stopping: simethicone 80 mg chewable tablet Comments: Reason for Stopping: docusate 100 mg capsule Comments: Reason for Stopping: melatonin 3 mg tablet Comments: Reason for Stopping: tirzepatide 7.5 mg/0.5 mL subcutaneous injection pen Comments: Reason for Stopping: vitamin B-12 1,000 mcg tablet Comments: Reason for Stopping: albuterol 90 mcg/actuation inhaler Comments: Reason for Stopping: memantine 10 mg tablet Comments: Reason for Stopping: metFORMIN 850 mg tablet Comments: Reason for Stopping: Current Facility-Administered Medications: aspirin chewable tablet 81 mg, 81 mg, Oral, DAILY, Agustin Maciel MD, 81 mg at 04/08/25 09 atorvastatin (LIPITOR) tablet 40 mg, 40 mg, Oral, QHS, Agustin Maciel MD calcitrioL (ROCALTROL) capsule 0.25 mcg, 0.25 mcg, Oral, BID, Agustin Maciel MD, 0.25 mcg at 04/08/25 09 clopidogreL (PLAVIX) 75 mg tablet 75 mg, 75 mg, Oral, DAILY, Agustin Maciel MD, 75 mg at 04/08/25 09 docusate (COLACE) capsule 200 mg, 200 mg, Oral, BIDPRN, Agustin Maciel MD DULoxetine (CYMBALTA) capsule 60 mg, 60 mg, Oral, DAILY, Agustin Maciel MD, 60 mg at 04/08/25 0904 gabapentin (NEURONTIN) capsule 300 mg, 300 mg, Oral, TID, Agustin Maciel MD, 300 mg at 04/08/25 0904 insulin glargine (LANTUS U-100) injection 8 Units, 8 Units, Subcutaneous, BID, Agustin Maciel MD, 8 Units at 04/08/25 0904 melatonin (MELATIN) tablet 3 mg, 3 mg, Oral, QHSPRN, Agustin Maciel MD memantine (NAMENDA) tablet 10 mg, 10 mg, Oral, BID, Agustin Maciel MD, 10 mg at 04/08/25 09 nitroglycerin (NITROSTAT) sublingual tablet 0.4 mg, 0.4 mg, Sublingual, Q5MIN PRN, Agustin Maciel MD sennosides (SENOKOT) tablet 8.6 mg, 8.6 mg, Oral, BID, Agustin Maciel MD, 8.6 mg at 04/08/25 09 acetaminophen (TYLENOL) tablet 650 mg, 650 mg, Oral, Q6HPRN, Cinda Roberts MD dextrose 50 % in water (D50W) injection 25 mL, 25 mL, Slow IV Push, PRN, Cinda Roberts MD enoxaparin (LOVENOX) injection 40 mg, 40 mg, Subcutaneous, DAILY AT 1700, Cinda Roberts MD, 40 mg at 04/07/25 1644 glucagon HCL injection 1 mg, 1 mg, Intramuscular, PRN, Cinda Roberts MD HYDROcodone-acetaminophen (NORCO 5) tablet 1 tablet, 1 tablet, Oral, Q6HPRN, Cinda Roberts MD, 1 tablet at 04/07/25 1651 morpHINE (4 mg/mL) injection 4 mg, 4 mg, Slow IV Push, Q4HPRN, Cinda Roberts MD ondansetron (ZOFRAN (PF)) injection 4 mg, 4 mg, Slow IV Push, Q6HPRN, Cinda Roberts MD Sliding Scale Insulin - Lispro (HumaLOG), , Subcutaneous, TID MEALS+HS, Cinda Roberts MD, 2 Units at 04/07/25 1644 REVIEW OF SYSTEMS: Comprehensive 10-system review was conducted and were negative except for what's noted in the HPI. The following systems were reviewed: Constitutional, cardiovascular, respiratory, gastrointestinal, genitourinary, musculoskeletal, neurologic, psychiatric, endocrinological, and hematological. PHYSICAL EXAMINATION: Vitals: 04/07/25 2322 04/08/25 0333 04/08/25 0720 04/08/25 1107 BP: 123/73 (!) 159/87 134/76 131/81 Pulse: 57 71 67 64 Resp: 18 18 18 18 Temp: 37.2 ?C (98.9 ?F) 36.8 ?C (98.3 ?F) 36.6 ?C (97.9 ?F) 36.2 ?C (97.1 ?F) TempSrc: SpO2: 98% 98% 97% 98% Weight: 76 kg (167 lb 8 oz) Height: General: no apparent distress HEENT: normocephalic atraumatic Neck: supple, no lymphadenopathy, no bruits, no JVD Lungs: clear to auscultation bilaterally. No wheezes or rhonchi. No increased work of breathing. Cardio: Regular rate and rhythm, S1&S2 normal, no murmurs, rubs or gallops Abdomen: soft; non-tender; non-distended; normoactive bowel sounds. : not examined Rectal: not examined Extremities: no clubbing, cyanosis, or edema. Skin: no rashes, no visible lesions. Neuro: no gross focal deficits LABS - Reviewed pertinent labs as below: CBC BMP PT/INR WBC (10*3/?L) Date Value 04/07/2025 8.64 NA (mmol/L) Date Value 04/08/2025 140 No results found for: "PT" PLT (10*3/?L) Date Value 04/07/2025 227 K (mmol/L) Date Value 04/08/2025 3.7 INR (no units) Date Value 03/04/2025 1.0 HGB (g/dL) Date Value 04/07/2025 12.2 BUN (mg/dL) Date Value 04/08/2025 12 HCT (%) Date Value 04/07/2025 34.8 (L) CREATININE (mg/dL) Date Value 04/08/2025 0.80 LIPID PROFILE GLUCOSE (mg/dL) Date Value 04/08/2025 106 CHOL (mg/dL) Date Value 03/05/2025 83 (L) TSH LDL CHOL (mg/dL) Date Value 03/05/2025 35 TSH (mIU/L) Date Value 03/04/2025 0.71 CARDIAC ENZYMES HDL (mg/dL) Date Value 03/05/2025 30 (L) No results found for: "CK" TRIG (mg/dL) Date Value 03/05/2025 90 LFTs No results found for: "CKMB" AST(SGOT) (U/L) Date Value 04/07/2025 21 TROPONIN I (ng/mL) Date Value 04/07/2025 <0.012 ALTv (U/L) Date Value 04/07/2025 23 No results found for: "BNP" LDL CHOL (mg/dL) Date Value 03/05/2025 35 Recent Labs 04/07/25 2214 TROPNI <0.012 Recent Labs 03/05/25 0420 TRIG 90 LDL CHOL (mg/dL) Date Value 03/05/2025 35 NT-proBNP (pg/mL) Date Value 04/07/2025 198 ASSESSMENT/PLAN Principal Problem: Chest pain, unspecified type Active Problems: Coronary atherosclerosis Bradycardia, unspecified Type 2 diabetes mellitus with hyperglycemia Dyspnea History of cerebrovascular accident Hyperlipidemia Essential (primary) hypertension Obstructive sleep apnea syndrome Results Labs - Serial troponins: Negative - Anterior proBNP: Within acceptable stable limits Imaging - Chest x-ray: No evidence of any heart failure pattern - Echocardiogram: 02/2025, Preserved LV systolic function with no significant valve abnormalities noted Diagnostic Testing - EK04/07/2025, Sinus rhythm, nonacute RS complex, no significant ST-T changes - Telemetry: Sinus bradycardia with no advanced AV blocks or pauses noted Assessment & Plan 1. Shortness of breath, NYHA class II/chest pain with exertional symptoms. - No rest chest pain noted, gradually worsening in the last few weeks duration. - EKG/echocardiogram that was done last month was reviewed. - Serial troponins x 2 were negative. - Anterior proBNP within acceptable stable limits. - Due to significant cardiovascular risk factors in terms of previous history of CAD/PCI with no recent follow-up with cardiology or cardiac testing, recommended proceeding with Lexiscan NM stress test tomorrow. - Treatment plan discussed with the patient in detail and verbalized understanding and wished to proceed with the stress test in the morning tomorrow. - Continue ASA 81 mg daily, Plavix 75 mg daily. Recent Labs 04/07/25 1644 04/07/25 2214 TROPNI 0.003 <0.012 NT-proBNP (pg/mL) Date Value 04/07/2025 198 2. Orthostatic hypotension. - Recommended standing vitals. - Recommended to titrate the blood pressure based upon the standing vitals. 3. Dyslipidemia. - Continue with the current dose of Lipitor 40 mg daily. - Goal LDL needs to be <70 LDL CHOL (mg/dL) Date Value 03/05/2025 35 4. History of TIA. - Recommended outpatient event monitor in the setting of underlying bradycardia to assess for underlying bradycardia burden and also to rule out underlying arrhythmias. Last Two A1C Results ([facility]/LC, POCT, [facility]) Recent Labs 03/04/25 1743 HGBA1C 6.1* Total Visit Time: 45 mins The total Visit time for today's visit with Bob Abbott encompassed 45 minutes. Time was spent reviewing the chart before, during and after the visit, reviewing laboratory results, taking interval history, performing the documented physical examination, completing and "cleaning up" the electronic medical record as well as addressing any questions and concerns. The time spent for patient care includes: PreCharting (eg, review of tests, notes, etc.), Obtaining and/or reviewing separately obtained history (Care Everywhere or paper records), Counseling and educating the patient/family/caregiver, Ordering medications, tests, or procedures, Ordering referrals and/or communicating with other health critical care physician (when not separately reported), Documenting clinical information in the electronic or other health record, and Independently interpreting results (not separately reported) and/or communicating results to the patient/family/caregiver, and personally reviewing cardiac imaging, ECG, tele monitor. This report was dictated using [employer] and is subject to voice recognition errors. Please excuse any unusual inaccuracies. My diagnostic impression and treatment plans were discussed at length with the patient and family member present. All side effects as well as drug-drug interactions and risks discussed at length. Ample opportunity was offered and encouraged to ask questions during this visit and patient appreciated the answers given by me and verbzalised statisfcation in the answers given. Thank you for allowing us to participate in the care of Bob Abbott. If you have any questions or concerns please feel free to call our office at [phone]. I would be happy to be of further assistance for Bob Abbott wellbeing. Voice recognition software has been used to create portions of this document. An attempt to proofread has been made to minimize errors. Please do not hesitate to call with any questions. Daniel Samaniego MD 04/08/2025 1:04 PM Title I Director, Division of Cardiology [facility] 2025-04-08 11:45:00 Associated Order(s): CONSULT PASTORAL CARE; CONSULT PS PASTORAL CARE Event Scientist Engineer visited patient per consult. Intervention Scientist Engineer was a spiritual presence and diesel lube tech. Scientist Engineer offered active compassionate listening. Scientist Engineer provided patient with words of support and encouragement. Scientist Engineer prayed for patient healing and recovery. Outcome/Spiritual Assessment Patient received awake in bed. Patient was pleasant and welcomed the Scientist Engineer visit. Patient shared his health narrative. Patient has a who is supportive. Patient is eager to find out what is going on with his health. Patient identified as a member of the [employer] and welcomed prayer for his healing. Patient thanked Scientist Engineer for the visit. Plan Additional Scientist Engineer support is available upon request. Scientist Engineer Garima Hinson DMin Pastoral Care Department [phone] [facility] 2025-03-06 10:30:00 Associated Order(s): CONSULT ADULT PHYSICAL THERAPY RN cleared PT for session. Patient agreeable to working with physical therapy. Patient semireclining in bed and Heels offloaded? No: not required as patient is alert and oriented, as well as exhibits sufficient LE strength and ability to move/reposition LEs/heels throughout the day, No visitors present and Bed alarm engaged. Recommend nursing staff utilize RW to safely assist patient with mobility out of the bed or chair. PHYSICAL THERAPY EVALUATION Consult received, chart reviewed and evaluation complete this date. Patient is referred to PT for evaluation and treatment. Patient is a 64 year old male who presents to hospital for Weakness [R53.1]. Discharge Recommendations: Therapy Needs and Potential: Patient would benefit from continued physical therapy services to address: decline in bed mobility decline in transfers decline in gait and/or balance decreased strength decreased endurance Patient demonstrates good potential to improve and meet therapy goals with further physical therapy services. Patient appears motivated to improve their functional mobility and return to their previous level of function. Patient demonstrates ability to tolerate approximately 90 minutes of physical therapy with active participation. Challenges to Home Transition: increased risk of falls Equipment recommendations: Patient has or access to necessary equipment Current Functional Status and/or Treatment: AM-PAC 6 Clicks (Raw Score 0=Dependent, 24=Independent; Low function Raw Score 0= Dependent, 32=Independent): Raw Score - Basic Mobility : 19 T-Scale Score - Basic Mobility : 42.48 Bed Mobility: Rolling: Independent Supine-sit: Independent Sit to supine: Supervision Sitting balance Good Scooting to edge of bed: Independent Dizziness Yes, initially, however improved after time given for acclimation Transfers: Sit to stand: Supervision using RW Stand to sit: Supervision using RW Static/dynamic standing balance: Fair+ Verbal cueing provided for correct hand placement and correct use of AD Dizziness Yes, initially however improved after time given for acclimation Ambulation: Assisted patient with ambulation as follows: 40 x 2 feet using RW and Supervision. 1 seated rest break needed Vital signs in sitting during break: 122/60 (81) mmhg, and 55 HR. Vital signs once standing to return to room: 131/64 (86) mmhg and 55 HR Once returned to room seated EOB, HR at 59-60 bpm. Patient presenting with slow, steady, step-through gait pattern, however with decreased step and stride lengths bilaterally Cued to take bigger steps, able to correct briefly Dizziness No Therapeutic exercise: patient educated in Adaptive equipment , Compensatory techniques/adaptive strategies, Deep breathing, Energy conservation, Fall prevention, General strengthening, Gross motor coordination of LEs, Positioning, Relaxation/breathing techniques, Safety awareness, and Visual scanning. instructed patient in the following: ankle pumps, quad sets, heel slides, hip abduction/adduction, straight leg raises, long arc quads, seated marching Educated patient with importance and benefits of progressive OOB activities as tolerated to: Increase overall mobility, strength and endurance and progress towards PLOF Decrease chances of pneumonia, deconditioning, BLE DVT's, skin breakdown and pressure sores. Patient verbalizing understanding to all discussed Functional Outcome Measures: (Values within the past 12 hours) Tinetti Gait Score- # / 12 Initiation of gait: Hesitancy or multiple attempts to start Step length: Neither foot passes the other Foot clearance: Both feet completely clear floor Step Symmetry: Step lengths not equal Step continuity: Stopping/dis-continuous steps Path: Mild/moderate deviation or uses AD Trunk: Marked sway or uses AD Walking: Heels almost touching Tinetti Gait Score: 4 Tinetti Gait Score Interpretation: < 7 - Increased risk for falls After session, patient semireclining in bed and Heels offloaded? No: not required as patient is alert and oriented, as well as exhibits sufficient LE strength and ability to move/reposition LEs/heels throughout the day, No visitors present and Bed alarm engaged. Call button provided. RN made aware of pt's current status, functional mobility, and to continue to monitor. PLAN OF CARE: While in the hospital, PT will follow patient at least 2 times per week,once or twice a day, per patient's tolerance and needs. See below for complete details. Admit Date: 03/04/2025 Hospital Diagnosis:Weakness [R53.1] PT Diagnosis: Difficulty walking, Weakness, Vertigo/dizziness, and Abnormality of gait and balance Weight Bearing Precaution: NA General Precautions: PPE used:Gloves, General, Fall, Lines/Tubes, Cardiac (telemetry),IV peripheral Bracing/Cast present or required:N/A PMH: Past Medical History: Diagnosis Date Anxiety disorder, unspecified Bipolar disorder, unspecified BPH (benign prostatic hyperplasia) CAD (coronary artery disease) CVA (cerebral vascular accident) Depression Mild cognitive impairment Peripheral neuropathy PTSD (post-traumatic stress disorder) PSH: Past Surgical History: Procedure Laterality Date PCI-STENT LAD THYROIDECTOMY Left PRIOR LIVING SITUATION: lives with their spouse in a [facility] DME: Single Point Cane, Four wheeled walker with seat Prior level of Mobility: house hold ambulation with 4WW Suspected ischemic or hemorraghic stroke:No Subjective: Patient agreed to session Patient/Family Goals: to get better Patient/Family verbalizes understanding of condition: Yes PAIN: denies pain before and after session COMMUNICATION Primary Language: Finnish Able to Verbalize needs: Yes Vision:glasses Hearing:good; no issues reported ORIENTATION/COGNITION: Oriented to: person, place, date/time, and situation Awake: Yes Alert: Yes Dizzy: Yes Follows Commands: Yes 1-Step Yes Multi-Step Yes Inconsistent: No NEUROLOGICAL Light Touch: within functional limits bilateral LE BALANCE: Sitting: Static: Good Dynamic: Good Standing: Static: Good Dynamic: Fair+ RANGE OF MOTION: within functional limits bilateral LE STRENGTH: 4-/5 (G-), bilateral LE ENDURANCE: Fair+, Room air SKIN INTEGRITY: Refer to RN notes PROBLEM LIST: Decline in bed mobility, Decline in gait, Decline in transfers, Difficulty with stairs, Decreased strength, Decreased endurance, Decreased balance, and Safety awareness deficits ASSESSMENT: Patient is a 64 year old male seen secondary to the above listed diagnosis. Patient would benefit from continued PT to address the above listed deficits to maximize independence and safety with functional mobility. Rehabilitation Potential: good Goals: The following goals are to maximize independence and safety with functional mobility to eventually return to prior living situation and prior functional status. Upon discharge, patient and/or family will demonstrate the followin. Sit to stand: Independent using RW Stand to sit: Independent using RW 2. Independent with ambulation, Feet: 150 using least assistive device. Treatment Plan: Gait training, Therapeutic exercise, Transfer training, Balance training, Bed mobility training, Equipment needs assessment, Safety education, patient/caregiver education, and Functional Motor Training PATIENT EDUCATION: Patient provided with preferred teaching of verbal information on role of PT, plan of care,. Shows readiness to learn. Verbal instruction teaching provided. Individual is able to read and verbalizes understanding of teaching provided. Total Time Tx Codes in Minutes: 10 min Total Treatment Time in Minutes: 28 min Miranda Wagner PT, DPT Physical Therapist Pt will be followed by physical therapy, however, this therapist may not be primary therapist. Please contact rehab services at [facility] for questions or concerns. Miranda Wagner PT [facility] 2025-03-06 09:00:00 Associated Order(s): CONSULT ADULT OCCUPATIONAL THERAPY OT GENERAL EVALUATION Consult received via [employer], EMR reviewed and evaluation completed 03/06/25. Patient referred to occupational therapy for evaluation and treatment secondary to Bradycardia . Patient agreeable to participate in occupational therapy. Patient found semireclining in bed and Heels offloaded? No: not required as patient is alert and oriented, as well as exhibits sufficient LE strength and ability to move/reposition LEs/heels throughout the day, Visitor present, Nursing present, and Vital signs stable . Discharge Recommendations: Therapy Needs and Potential:Not applicable as no further skilled acute care OT needs at this time. Challenges to Home Transition:None Equipment Recommendations:Tub transfer bench PLAN OF CARE: Discharge from OT services Precautions: Weight bearing status: NA General: PPE Utilized: Gloves and Fall Bracing: N/A Subjective: Pt reports feeling, "like a black cloud comes over my vision when I stand up." Current Occupational Performance and/or Treatment: AM-PAC 6 Clicks (Raw Score 0=Dependent, 24=Independent; Low function Raw Score 0= Dependent, 32=Independent): Raw Score - Daily Activity: 24 T-Scale Score - Daily Activity: 57.54 Feeding: Independent, Grooming: Independent, combing hair UB Dressing: Independent, donning machine assembler for puller over t-shirt LB Dressing: Independent, doffing and donning pants and socks Toilet Transfer: Independent, with RW during simulated toilet transfer Toileting Hygiene: Independent, with perineal care Functional Mobility: Bed mobility: Independent Supine <> sit: independent Sit <> stand: Independent Ambulation in room with RW: Please refer to PT evaluation Patient/caregiver educated on:Adaptive equipment , ADL training, Fall prevention, Role of OT, and Safety awareness Patient left semireclining in bed with call moulton in reach. No visitors present, Nursing present, and Vital signs stable . Please, see full evaluation below for more detail. OT EVALUATION: 64 year old male Admit date: 03/04/2025 Date of onset: 03/04/25 Admit Diagnosis: Weakness [R53.1] OT Diagnosis: Decreased endurance PMH: Past Medical History: Diagnosis Date Anxiety disorder, unspecified Bipolar disorder, unspecified BPH (benign prostatic hyperplasia) CAD (coronary artery disease) CVA (cerebral vascular accident) Depression Mild cognitive impairment Peripheral neuropathy PTSD (post-traumatic stress disorder) PSH: Past Surgical History: Procedure Laterality Date PCI-STENT LAD THYROIDECTOMY Left PAIN: Denies pain before and after session. OCCUPATIONAL ROLES/HOME ENVIRONMENT: Home environment: Lives with spouse, 18/04 supervision/assistance is available, and Single story home. Bathroom access: Yes Bathroom setup: Combo Occupation(s): Retired Function prior to admission: Household ambulation, Community ambulation with rollator, Independent with BADLs, and Independent with IADLs Suspected ischemic or hemorraghic stroke patient: No Equipment prior to admission: 4 wheeled walker, Shower chair PERFORMANCE SKILLS/FACTORS: UE Muscle Tone: bilateral WNL UE ROM: bilateral AROM WFL UE Strength: SHIRAZ UE WFL Hand dominance: right Dexterity/Coordination: bilateral Fine motor skills Intact and bilateral Gross motor skills Intact Endurance - Sitting: Fair+ Standing: Fair+ Sitting Balance - Static: Fair+ Dynamic: Fair+ Standing: Balance - Static Fair+ Dynamic: Fair Dizziness: Yes; resolved after sitting on edge of bed and performing ankle pumps Skin Integrity: No breakdown noted Sensation: bilateral UE Intact to light touch Oral Motor: WFL Communication: Able to verbalize needs Yes Other: N/A Vision: WFL Yes Other: N/A Hearing: good; no issues reported COGNITION: Orientation: person, place, date/time, and situation Follows Commands: 1-step Yes Multi-step Yes Inconsistencies No Safety Awareness/Judgment: Good PROBLEM LIST: Decreased endurance for functional activity REHAB POTENTIAL/PROGNOSIS: NA as no further therapy needs PATIENT/FAMILY GOALS: "Figure out why I'm getting dizzy." TREATMENT/INTERVENTION PLAN: Discharge from OT PATIENT-FAMILY TEACHING Patient provided with preferred teaching of verbal information and demonstration on Adaptive equipment , ADL training, Fall prevention, Role of OT, and Safety awareness. Shows readiness to learn. Verbal instruction and Demonstration teaching provided. Individual is able to read and verbalizes understanding of teaching provided and accurately returns demonstration of skill. Pancho Mcadams OTR, Dsc Pager #: [phone] Total Timed Treatment Codes: 10 Min Total Treatment Time: 22 Min Patient Complexity Level Low - An occupational therapy evaluation of low complexity was completed using the above tests and measures. The following information was obtained: An occupational profile and medical and therapy history, including a brief history with review of medical and/or therapy records related to the presenting problem. Various standardized and non-standardized assessments were used to identify at least 1-3 performance deficits related to physical, cognitive, or psychosocial skills that result in activity limitations and/or participation restrictions. Clinical decision making of low complexity may have been utilized, which includes an analysis of the occupational profile, analysis of data from problem-focused assessment(s), and consideration of a limited number of treatment options. Patient may presents with no comorbidities that affect occupational performance. Modification of tasks or assistance (e.g., physical or verbal) with assessment(s) may not have been necessary to enable completion of evaluation component. Pancho Mcadams OT [facility] - Health History and Physical Notes Date/Time Note Provider Source 2025-04-07 21:51:36 MEDICINE [facility] ADMIT H&P Date of Service: 04/07/2025 CHIEF COMPLAINT: chest pain Subjective History of Present Illness 64-year-old male with a history of coronary artery disease with prior stent placement, TIA, severe peripheral neuropathy, type 2 diabetes, hypertension, high cholesterol, BPH, mild cognitive impairment, and anxiety/depression presents with chest pain for the past few weeks. The pain is substernal, worsens with exertion, and initially improved with rest but has now become constant. He also reports shortness of breath and increasing weakness. He was seen in the OR ED last week for similar symptoms and was diagnosed with bronchospasm. He received steroids and an inhaler there and was prescribed an inhaler at discharge, but symptoms persisted. Additional symptoms include headache, blurry vision, nausea, and constipation. PAST MEDICAL HISTORY Past Medical History: Diagnosis Date Anxiety disorder, unspecified Bipolar disorder, unspecified BPH (benign prostatic hyperplasia) CAD (coronary artery disease) CVA (cerebral vascular accident) Depression Mild cognitive impairment Peripheral neuropathy PTSD (post-traumatic stress disorder) Past Surgical History: Procedure Laterality Date PCI-STENT LAD THYROIDECTOMY Left Family History Problem Relation Age of Onset Brain Cancer Mother Diabetes Mother Dementia Mother Heart Mother Hypertension Mother Lung Cancer Father Dementia Father Diabetes Father Heart Father Heart Maternal Grandfather ALLERGIES Allergies Allergen Reactions Pregabalin Other - See comments Vision changes MEDICATIONS No current facility-administered medications on file prior to encounter. Current Outpatient Medications on File Prior to Encounter Medication Sig Dispense Refill atorvastatin 40 mg tablet Take 1 tablet by mouth at bedtime. 30 tablet 2 calcitrioL 0.25 mcg capsule Take 1 capsule by mouth in the morning and 1 capsule in the evening. 60 capsule 2 clopidogreL 75 mg tablet Take 1 tablet by mouth in the morning. 30 tablet 2 DULoxetine 60 mg capsule Take 1 capsule by mouth in the morning. 30 capsule 0 gabapentin 300 mg capsule Take 1 capsule by mouth in the morning and 1 capsule at noon and 1 capsule in the evening. 90 capsule 0 insulin glargine 100 unit/mL injection inject 8 Units under the skin in the morning and 8 Units in the evening. 10 mL 1 sennosides 8.6 mg tablet Take 1 tablet by mouth in the morning and 1 tablet in the evening. 60 tablet 2 simethicone 80 mg chewable tablet Take 2 tablets by mouth 3 times daily with meals as needed for Gas. 30 tablet 2 docusate 100 mg capsule Take 2 capsules by mouth 2 times daily as needed for Constipation. melatonin 3 mg tablet Take 1 tablet by mouth at bedtime. tirzepatide 7.5 mg/0.5 mL subcutaneous injection pen inject 7.5 mg under the skin weekly. vitamin B-12 1,000 mcg tablet Take 1 tablet by mouth in the morning. albuterol 90 mcg/actuation inhaler Inhale 2 Puffs every 6 hours as needed. memantine 10 mg tablet Take 1 tablet by mouth in the morning and 1 tablet in the evening. metFORMIN 850 mg tablet Take 1 tablet 3 times a day by oral route. (Patient taking differently: Take 500 mg by mouth in the morning and 500 mg in the evening. Take with meals.) I attest that the foregoing medication list in the medical record is true, accurate and complete to the best of my knowledge. SOCIAL HISTORY Social History Socioeconomic History Marital status: Tobacco Use Smoking status: Former Types: Cigarettes Smokeless tobacco: Never Tobacco comments: 1 pack per week for 50 years Substance and Sexual Activity Alcohol use: Yes Comment: socially Drug use: Never Social Drivers of Health Food Insecurity: No Food Insecurity (03/05/2025) NCSS - Food Insecurity Worried About Running Out of Food in the Last Year: No Ran Out of Food in the Last Year: No Transportation Needs: No Transportation Needs (03/05/2025) NCSS - Transportation Lack of Transportation: No Housing Stability: Not At Risk (03/05/2025) NCSS - Housing/Utilities Has Housing: Yes Worried About Losing Housing: No Unable to Get Utilities: No REVIEW OF SYSTEMS Review of Systems Constitutional: Negative. HENT: Negative. Eyes: Positive for visual disturbance. Negative for photophobia, pain, discharge, redness and itching. Respiratory: Positive for shortness of breath. Negative for apnea, cough, choking, chest tightness, wheezing and stridor. Breasts: Negative. Cardiovascular: Positive for chest pain. Negative for palpitations and leg swelling. Gastrointestinal: Positive for constipation and nausea. Negative for abdominal distention, abdominal pain, anal bleeding, blood in stool, diarrhea, rectal pain and vomiting. Genitourinary: Negative. Musculoskeletal: Negative. Skin: Negative. Neurological: Positive for weakness and headaches. Negative for dizziness, tremors, seizures, syncope, facial asymmetry, speech difficulty, light-headedness and numbness. Psychiatric/Behavioral: Negative. Endocrine: Endocrine negative Objective PHYSICAL EXAMINATION Vitals: 04/07/25 1200 04/07/25 1300 04/07/25 1502 04/07/25 1924 BP: 124/70 129/69 132/83 122/69 Pulse: 59 55 56 54 Resp: 14 15 18 18 Temp: 36.4 ?C (97.5 ?F) 36.7 ?C (98 ?F) TempSrc: SpO2: 98% 97% 99% 96% Weight: Height: Physical Exam Vitals and nursing note reviewed. Constitutional: General: He is not in acute distress. Appearance: Normal appearance. He is not ill-appearing, toxic-appearing or diaphoretic. HENT: Head: Normocephalic and atraumatic. Right Ear: External ear normal. Left Ear: External ear normal. Nose: Nose normal. No congestion or rhinorrhea. Mouth/Throat: Mouth: Mucous membranes are moist. Pharynx: No oropharyngeal exudate or posterior oropharyngeal erythema. Eyes: General: No scleral icterus. Extraocular Movements: Extraocular movements intact. Conjunctiva/sclera: Conjunctivae normal. Pupils: Pupils are equal, round, and reactive to light. Cardiovascular: Rate and Rhythm: Normal rate and regular rhythm. Heart sounds: No murmur heard. No friction rub. No gallop. Pulmonary: Effort: Pulmonary effort is normal. No respiratory distress. Breath sounds: Normal breath sounds. No wheezing or rales. Chest: Chest wall: No tenderness. Abdominal: General: Abdomen is flat. Bowel sounds are normal. There is no distension. Palpations: Abdomen is soft. Tenderness: There is no abdominal tenderness. There is no guarding. Musculoskeletal: General: Normal range of motion. Cervical back: Normal range of motion and neck supple. Right lower leg: No edema. Left lower leg: No edema. Skin: General: Skin is warm and dry. Neurological: Mental Status: He is alert. Psychiatric: Mood and Affect: Mood normal. Behavior: Behavior normal. Thought Content: Thought content normal. Judgment: Judgment normal. LABS/IMAGING - reviewed CLINICAL INDICATION: chest pain COMPARISON: 03/04/2025 FINDINGS: The lungs are partial expanded and clear. No pleural effusion or pneumothorax is seen. The cardiomediastinal silhouette is normal. No acute bony abnormality. IMPRESSION No acute intrathoracic abnormality. EKG: sinus rhythm Assessment & Plan Bob Abbott is a 64 year old male with PMH as listed above, admitted to the hospital with: 1. Chest pain atypical: So, far EKG and troponin are negative for an acute myocardial infarction. -- Will order pain control, oxygen, nitroglycerin prn, and aspirin. -- Will continue to trend the troponin -- Echocardiogram -- Cardiology has been consulted. 2. DM complicated peripheral neuropathy : -- On insulin sliding scale -- On insulin glargine -- On Neurotin 3. HLD: -- On lipitor 4. Anxiety/depression: -- On duloxetine 5. Memory impairment: -- On memantine Prophylaxis: DVT- enoxaparin Code Status: Full Code Advance Care Planning (Z71.89): Discussed at length with patient; full understanding confirmed. Surrogate decision maker identified: Yes. Expected discharge: Home. Time spent: 18 minutes. OBS: Anticipate less than 2 midnight stays due to minimal intensive nursing care, intermittent monitoring, short-term intervention for the workup and treatment of chest pain. T [employer] EMERGENCY PHYSICIAN STAFF [facility] 2025-03-04 22:01:46 MEDICINE [place] ADMIT H&P PCP: [facility] Date of Service: 03/04/2025 CHIEF COMPLAINT: weakness and bradycardia Subjective History of Present Illness Bob Abbott is a 64 year old male with PMH CAD s/p PCI LAD in 2018, hx TIA with baseline L sided weakness, severe peripheral neuropathy, T2DM, HTN, HLD, BPH, mild cognitive impairment, anxiety/depression who presents for weakness and bradycardia. Patient reports that on Tuesday he had a bad headache described as a pressure on the top of his head with associated changes in vision. States that his vision was going black as if he was going to pass out the headache eased up on its own but returned the next day. This time the headache persisted his vision was better. He also reports increased weakness in his legs and felt dizzy upon walking, felt like he was going to pass out. Started to fall against the wall but caught himself. He has left-sided weakness at baseline and uses a walker, but states that the weakness was worse. Also has severe neuropathy in both his legs. Denies nausea, vomiting, fever, chills, chest pain, palpitations, SOB. Patient initially went to [facility] where code stroke was called, CT scans showed no LVO or high-grade stenosis. Was noted to have bradycardia in the 40s. Patient reports his heart rate is usually in the 60s to 70s. Per chart review patient's lowest heart rate in high 50s. At OSH, BP 94/53, HR 50, RR 16, temp 37.2, O2 96% on RA Labs: WBC 9.26, hgb 12.1, plt 188, Na 139, K 4.1, Cr 1.04, trop 0.003, LA 1.42, UA neg LE/nitrites Imaging: CT head no acute intracranial abnormality, CTA head and neck no LVO or high-grade stenosis Interventions: NS 2 L bolus, tylenol 650 mg PAST MEDICAL HISTORY Past Medical History: Diagnosis Date Anxiety disorder, unspecified Bipolar disorder, unspecified BPH (benign prostatic hyperplasia) CAD (coronary artery disease) CVA (cerebral vascular accident) Depression Mild cognitive impairment Peripheral neuropathy PTSD (post-traumatic stress disorder) Past Surgical History: Procedure Laterality Date PCI-STENT LAD THYROIDECTOMY Left Family History Problem Relation Age of Onset Brain Cancer Mother Diabetes Mother Dementia Mother Heart Mother Hypertension Mother Lung Cancer Father Dementia Father Diabetes Father Heart Father Heart Maternal Grandfather ALLERGIES Allergies Allergen Reactions Pregabalin Other - See comments Vision changes MEDICATIONS No current facility-administered medications on file prior to encounter. Current Outpatient Medications on File Prior to Encounter Medication Sig Dispense Refill amLODIPine 5 mg tablet Take 1 tablet by mouth in the morning. calcitrioL 0.25 mcg capsule Take 1 capsule by mouth in the morning and 1 capsule in the evening. docusate 100 mg capsule Take 2 capsules by mouth 2 times daily as needed for Constipation. donepeziL 10 mg tablet Take 1 tablet by mouth at bedtime. insulin glargine 100 unit/mL injection inject 10 Units under the skin in the morning and 10 Units in the evening. melatonin 3 mg tablet Take 1 tablet by mouth at bedtime. sennosides 8.6 mg tablet Take 1 tablet by mouth 2 times daily as needed for Constipation. SERTraline 50 mg tablet Take 0.5 tablets by mouth in the morning. simethicone 80 mg chewable tablet Take 2 tablets by mouth 3 times daily with meals as needed for Gas. tirzepatide 7.5 mg/0.5 mL subcutaneous injection pen inject 7.5 mg under the skin weekly. tiZANidine 4 mg capsule Take 1 capsule by mouth once daily as needed for Muscle Spasms. vitamin B-12 1,000 mcg tablet Take 1 tablet by mouth in the morning. albuterol 90 mcg/actuation inhaler Inhale 2 Puffs every 6 (six) hours as needed. atorvastatin 40 mg tablet 1 tablet. clopidogreL 75 mg tablet 1 tablet. DULoxetine 20 mg capsule 4 capsules. (Patient taking differently: Take 3 capsules by mouth in the morning.) gabapentin 300 mg capsule Take 3 capsules by mouth in the morning and 3 capsules at noon and 3 capsules in the evening. isosorbide mononitrate 30 mg 24 hr tablet 1 tablet. losartan 50 mg tablet 1 tablet. memantine 10 mg tablet Take 1 tablet by mouth in the morning and 1 tablet in the evening. metFORMIN 850 mg tablet Take 1 tablet 3 times a day by oral route. (Patient taking differently: Take 500 mg by mouth in the morning and 500 mg in the evening. Take with meals.) tamsulosin 0.4 mg 24 hr capsule 1 capsule. SOCIAL HISTORY Social History Socioeconomic History Marital status: Tobacco Use Smoking status: Every Day Types: Cigarettes Smokeless tobacco: Never Tobacco comments: 1 pack per week for 50 years Substance and Sexual Activity Alcohol use: Yes Comment: socially Drug use: Never REVIEW OF SYSTEMS Review of Systems Constitutional: Negative for chills and fever. Respiratory: Negative for shortness of breath. Cardiovascular: Negative for chest pain, palpitations and leg swelling. Gastrointestinal: Negative for nausea and vomiting. Neurological: Positive for dizziness and weakness. Objective PHYSICAL EXAMINATION Vitals: 03/04/25 2200 03/04/25 2219 03/04/25 2353 03/05/25 0010 BP: 109/58 108/57 106/56 Pulse: (!) 48 52 50 Resp: 14 20 Temp: 36.7 ?C (98 ?F) 35.8 ?C (96.4 ?F) TempSrc: Oral SpO2: 98% 98% 97% Weight: 80.7 kg (178 lb) Height: 1.727 m (5' 8") Physical Exam Constitutional: General: He is not in acute distress. Appearance: Normal appearance. He is not ill-appearing. HENT: Head: Normocephalic and atraumatic. Eyes: Extraocular Movements: Extraocular movements intact. Cardiovascular: Rate and Rhythm: Bradycardia present. Pulmonary: Effort: Pulmonary effort is normal. Breath sounds: Normal breath sounds. Musculoskeletal: General: No swelling. Neurological: Mental Status: He is alert and oriented to person, place, and time. Motor: Weakness (Baseline L sided weakness) present. Psychiatric: Behavior: Behavior normal. Thought Content: Thought content normal. LABS/IMAGING - reviewed TTE 08/06/24 Summary: 1. Left ventricle: The cavity size is normal. Wall thickness is normal. Systolic function is normal. The estimated ejection fraction is 55-60%. Wall motion is normal; there are no regional wall motion abnormalities. Left ventricular diastolic function parameters are indeterminate. 2. Right ventricle: The RV pressure during systole is 34 mm Hg. Electronically signed by Kojo Rangel MD 08/06/2024 09:32 EKG: pending CHART REVIEW: pertinent information as below: VIDHYA Hall Gardner 08/07/24 HPI: 64-year-old male past medical history of diabetes type 2, CAD status post PCI to LAD coronary on Plavix in 7 years, peripheral neuropathy and TIA 1-1/2 years ago. Presented after a syncopal episode followed by right-sided facial droop and left-sided weakness around 1320 this afternoon. History of diabetes, SANCHO, PTSD, hypertension. Presenting via EMS due to concern for stroke alert. Last known normal 1320. patient states that he was at a barbershop when he started feeling dizzy and eventually syncopized.Patient subsequently had an MRI done which did not show any acute intracranial abnormality patient was brought to the ED. As a possible stroke alert. Patient at time my examination denies any complaints. Has any active chest pain. Does have known history of CAD. Telemetry review showed sinus bradycardia. Troponin is negative. Assessment & Plan Bob Abbott is a 64 year old male with PMH as listed above, admitted to the hospital with: Bradycardia Weakness Presyncope CAD s/p PCI LAD in 2018 Hx TIA with baseline L sided weakness Hx severe peripheral neuropathy and significant sensory and motor deficits Patient presenting as transfer from [facility] for bradycardia and weakness. Patient reports ORDOÑEZ w/recent dizziness, presyncope and worsening leg weakness. Per chart review, patient's HR usually mid 50s-60s, now presenting in 40s. In [facility], code stroke called for difficulty walking w/associated weakness in arms and legs, has hx of TIA with residual L sided weakness. CT was neg for acute intracranial abnormality or LVO. Cardiology contacted overnight who recommended admit to medicine with cardiology consult. Will monitor on tele overnight and consult in AM - Admit Anni - admit labs - telemetry - consider EP consult in AM - atropine ordered prn - EKG - s/p 2L NS bolus in ED - hold anti-hypertensives - f/u vitamin B1, B12, and D - f/u Bcx from ED Chronic conditions T2DM HTN | HLD BPH Mild cognitive impairment Anxiety/depression Bipolar disorder PTSD Hx post-Covid syndrome Some discrepancies with patient's med list and what he takes. Reported starting sertraline 25 mg recently, but is also on SNRI with duloxetine 60 mg daily. Will hold sertraline for now. Denies having high BP, states it is usually low, but is on amlodipine 5 mg and losartan 50 mg, will hold for now and monitor BP. - continue Plavix 75 mg daily - continue lipitor 40 mg daily - lantus 8 units BID (home dose 10 units BID) - SSI - continue home gabapentin 900 mg TID - continue home duloxetine 60 mg daily - continue home donepezil 10 mg daily - continue home tamsulosin 0.4 mg daily - continue home vit b12 1000 mg daily and calcitriol 0.25 mcg BID Pain ControlledTylenol Prophylaxis: DVT- heparin Stress Ulcer: no indication for prophylaxis Code Status: Full Code Leonora Carr DO PGY-2, Internal Medicine Remmers Team Cosigned by Renetta Melvin DO at 03/05/2025 3:38 AM CDT Associated attestation - Renetta Melvin DO - 03/05/2025 3:38 AM CDT I personally examined the patient on the date of service and agree with Dr. Carr's resident note as written. I actively participated in the decision-making process. Please see the resident's note for additional details. -Pt presenting from [facility] with bradycardia and weakness -Case was presented to on-call cardiology faculty overnight who deferred admission to medicine but agreed to follow along as consulting service -He is hemodynamically stable at this time. Will f/u admit labs and place on tele with atropine prn ordered Renetta Melvin DO Title I Director | Department of Internal Medicine [facility] Notes Date/Time Note Provider Source 2025-04-09 15:31:06 Problem: Falls, Risk of Goal: Absence of falls 04/09/20251529 by Iris Bernard RN Outcome: Resolved 04/09/2025 153 by Iris Bernard RN Outcome: Adequate for discharge Problem: Discharge Planning Goal: Adequate for discharge 04/09/2025 1530 by Iris Bernard RN Outcome: Resolved 04/09/2025 153 by Iris Bernard RN Outcome: Adequate for discharge Goal: Adequate to move to next level of care 04/09/2025 1530 by Iris Bernard RN Outcome: Resolved 04/09/2025 153 by Iris Bernard RN Outcome: Adequate for discharge Goal: Knowledge of medication management 04/09/2025 1530 by Iris Bernard RN Outcome: Resolved 04/09/2025 153 by Iris Bernard RN Outcome: Adequate for discharge Problem: Cardiac Output - Decreased Goal: Absence of signs and symptoms of decreased cardiac output 04/09/2025 1530 by Iris Bernard RN Outcome: Resolved 04/09/2025 153 by Iris Bernard RN Outcome: Adequate for discharge Problem: Pain Goal: Control of pain at or below patient's documented comfort goal 04/09/2025 1530 by Iris Bernard RN Outcome: Resolved 04/09/2025 153 by Iris Bernard RN Outcome: Adequate for discharge Goal: Reduction in pain sensation 04/09/2025 153 by Iris Bernard RN Outcome: Resolved 04/09/20251529 by Iris Bernard RN Outcome: Adequate for discharge Problem: Skin integrity Impaired (Risk or Actual) Goal: Prevention of new skin breakdown 04/09/2025 153 by Iris Bernard RN Outcome: Resolved 04/09/2025 153 by Iris Bernard RN Outcome: Adequate for discharge Problem: Tissue Perfusion, Cardiopulmonary - Altered Goal: Circulatory function within specified parameters 04/09/20251529 by Iris Bernard RN Outcome: Resolved 04/09/20251529 by Iris Bernard RN Outcome: Adequate for discharge Problem: Venous Thromboembolism, (actual or risk of) Goal: Absence of venous thromboembolism (Risk) 04/09/2025 153 by Iris Bernard RN Outcome: Resolved 04/09/20251529 by Iris Bernard RN Outcome: Adequate for discharge Iris Bernard RN [facility] 2025-04-09 15:30:53 Problem: Falls, Risk of Goal: Absence of falls Outcome: Adequate for discharge Problem: Discharge Planning Goal: Adequate for discharge Outcome: Adequate for discharge Goal: Adequate to move to next level of care Outcome: Adequate for discharge Goal: Knowledge of medication management Outcome: Adequate for discharge Problem: Cardiac Output - Decreased Goal: Absence of signs and symptoms of decreased cardiac output Outcome: Adequate for discharge Problem: Pain Goal: Control of pain at or below patient's documented comfort goal Outcome: Adequate for discharge Goal: Reduction in pain sensation Outcome: Adequate for discharge Problem: Skin integrity Impaired (Risk or Actual) Goal: Prevention of new skin breakdown Outcome: Adequate for discharge Problem: Tissue Perfusion, Cardiopulmonary - Altered Goal: Circulatory function within specified parameters Outcome: Adequate for discharge Problem: Venous Thromboembolism, (actual or risk of) Goal: Absence of venous thromboembolism (Risk) Outcome: Adequate for discharge [facility] 2025-04-09 11:05:09 Summary: stress test Bob Abbott is a 64 year old male received to Nuclear Medicine for Stress Test. Pt is AAOx4 and is in NAD. Pt identified using Name & . Pt endorses no caffeine intake for 24 hrs and being NPO at least 4 hrs. PIV placed at right. Indication for this Stress Test is chest pain. NM Tech monitoring is zulma Supervising physician maria de jesus obtained consent at 04/09/25 Time out completed 1150 Lexiscan 0.4mg/5mL injected at 1150, followed by 5mL NS flush. Pre Stress Test vitals are: BP 122/76 HR 67 Resp 20 O2 sat 100 Injection vitals are: BP 105/61 HR 101 Resp 20 O2 sat 100 Recovery vitals are: BP 110/72 HR 99 Resp 20 O2 sat 97 PIV removed, pt leaving in no obvious distress. Chapis Whitt RN [facility] 2025-04-08 22:10:42 Problem: Falls, Risk of Goal: Absence of falls Outcome: Progressing as expected Problem: Pain Goal: Control of pain at or below patient's documented comfort goal Outcome: Progressing as expected Problem: Skin integrity Impaired (Risk or Actual) Goal: Prevention of new skin breakdown Outcome: Progressing as expected Problem: Tissue Perfusion, Cardiopulmonary - Altered Goal: Circulatory function within specified parameters Outcome: Progressing as expected NTHEALTH DURAND Des Pena RN [facility] 2025-04-08 17:03:50 Problem: Falls, Risk of Goal: Absence of falls Outcome: Progressing as expected Problem: Discharge Planning Goal: Adequate for discharge Outcome: Progressing as expected Goal: Adequate to move to next level of care Outcome: Progressing as expected Goal: Knowledge of medication management Outcome: Progressing as expected Problem: Cardiac Output - Decreased Goal: Absence of signs and symptoms of decreased cardiac output Outcome: Progressing as expected Problem: Pain Goal: Control of pain at or below patient's documented comfort goal Outcome: Progressing as expected Goal: Reduction in pain sensation Outcome: Progressing as expected Problem: Skin integrity Impaired (Risk or Actual) Goal: Prevention of new skin breakdown Outcome: Progressing as expected Problem: Tissue Perfusion, Cardiopulmonary - Altered Goal: Circulatory function within specified parameters Outcome: Progressing as expected Problem: Venous Thromboembolism, (actual or risk of) Goal: Absence of venous thromboembolism (Risk) Outcome: Progressing as expected [facility] 2025-04-07 21:19:13 Problem: Falls, Risk of Goal: Absence of falls Outcome: Progressing as expected Problem: Pain Goal: Control of pain at or below patient's documented comfort goal Outcome: Progressing as expected Problem: Skin integrity Impaired (Risk or Actual) Goal: Prevention of new skin breakdown Outcome: Progressing as expected [facility] 2025-04-07 18:18:53 Problem: Falls, Risk of Goal: Absence of falls Outcome: Progressing as expected Problem: Discharge Planning Goal: Adequate for discharge Outcome: Progressing as expected Goal: Adequate to move to next level of care Outcome: Progressing as expected Goal: Knowledge of medication management Outcome: Progressing as expected Problem: Cardiac Output - Decreased Goal: Absence of signs and symptoms of decreased cardiac output Outcome: Progressing as expected Problem: Pain Goal: Control of pain at or below patient's documented comfort goal Outcome: Progressing as expected Goal: Reduction in pain sensation Outcome: Progressing as expected Problem: Skin integrity Impaired (Risk or Actual) Goal: Prevention of new skin breakdown Outcome: Progressing as expected Problem: Tissue Perfusion, Cardiopulmonary - Altered Goal: Circulatory function within specified parameters Outcome: Progressing as expected Problem: Venous Thromboembolism, (actual or risk of) Goal: Absence of venous thromboembolism (Risk) Outcome: Progressing as expected T [facility] 2025-04-07 14:50:00 Nurse Report Report given to MARIANNE Enriquez. Chief complaint, assessment findings, infusion verify and orders reviewed. Patient/family members verbalized understanding. Kimmie Braun RN Kimmie Braun RN [facility] 2025-04-07 14:49:57 Patient admitted to [facility] for observation. Patient agrees to admission, discussed plan of care with patient and family. Patient is awake, A&Ox4, RR even and unlabored on RA. Color appropriate for race. PIV intact x1. No adverse reaction to medications administered while in ED. Belongings with patient to unit. T [facility] 2025-04-07 12:21:58 Requested meal tray at this time. Kelly Reynoso RN [facility] 2025-04-07 12:18:47 Pt was resting w/ his Juana at bedside.Ok to discuss medical info with Juana, per Pt. T [facility] 2025-04-07 10:06:36 Patient presents to ER c/o on going chest pain for a few weeks. Chest pain got worse today. 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 He went last week to OR ER c/o sob. They gave him an inhaler and DC. Reports increased weakness over last few weeks. Randi Taylor RN [facility] - [facility] 2025-04-07 09:59:00 Associated Order(s): EKG-12 Lead ROUTINE ONCE Pre-Procedure Diagnose(s): Chest pain, unspecified type Post-Procedure Diagnose(s): Chest pain, unspecified type [facility] Emergency Department Note Patient Name: Bob Abbott Date of : 1960 64 year old male Treatment Room: UT4 Primary Care Physician: [facility] Patient Escorted by: Family [5] Mode of Arrival: Personal means [1] EMS Treatment Prior to ED Arrival: [employer] treatment comments: routine meds Travel and Exposure Screening: Symptoms Does patient have any of these symptoms?: (not recorded) Exposure Screening Has patient had contact with someone with a communicable disease in the last month?: (not recorded) Diseases exposed to:: (not recorded) Is Patient ?: (not recorded) Exposure Date: (not recorded) Chief Complaint: Chief Complaint Patient presents with Chest Pain History of Present Illness: History of Present Illness Bob Abbott is a 64 year old male who present to the ED with chest pain with generalized weakness for few weeks that seem to be getting worse today. Was recently evaluated at the OR for similar symptoms. He rated his pain a 6 on a scale of 0 to 10 and described it as squeezing. He was found sitting in the ED exam area with spouse. He appears well, not toxic and does not seem to be in any apparent distress at this time. Patient denies any abdomen, back or neck pains, SOB, dizziness, headache, focal weakness, fall or head injury, fever, chills, cough, hemoptysis, sore throat, dysphagia, dysuria, hematuria, nausea, vomiting or diarrhea. History provided by: Patient interpreter deaf used: No Past Medical History/Immunizations: Past Medical History: Diagnosis Date Anxiety disorder, unspecified Bipolar disorder, unspecified BPH (benign prostatic hyperplasia) CAD (coronary artery disease) CVA (cerebral vascular accident) Depression Mild cognitive impairment Peripheral neuropathy PTSD (post-traumatic stress disorder) Tetanus received in last 5 years: No Allergies: Allergies Allergen Reactions Pregabalin Other - See comments Vision changes Past Social History: Tobacco Use Every Day; Types: Cigarettes Smokeless Tobacco: Never used smokeless tobacco. Comments: 1 pack per week for 50 years Alcohol Use Yes. Comments: socially Drug Use Never. Past Surgical History: Past Surgical History: Procedure Laterality Date PCI-STENT LAD THYROIDECTOMY Left Review of Systems: Review of Systems Constitutional: Negative. HENT: Negative. Eyes: Negative. Respiratory: Negative. Cardiovascular: Positive for chest pain. Negative for palpitations and leg swelling. Gastrointestinal: Negative. Genitourinary: Negative. Musculoskeletal: Negative. Skin: Negative. Neurological: Positive for weakness (Generalized). Negative for dizziness, tremors, seizures, syncope, facial asymmetry, speech difficulty, light-headedness, numbness and headaches. Physical Exam: Physical Exam ED Triage Vitals [04/07/25 1008] Weight 78.5 kg (173 lb) Actual or estimated Estimated by patient/family report Height 1.727 m (5' 8") BP 137/74 Pulse 70 Resp 16 Temp 37 ?C (98.6 ?F) Temp source Oral SpO2 96 % Measured on Room air Physical Exam Vitals and nursing note reviewed. Constitutional: General: He is not in acute distress. Appearance: Normal appearance. He is normal weight. He is not ill-appearing, toxic-appearing or diaphoretic. HENT: Head: Normocephalic. Right Ear: External ear normal. Left Ear: External ear normal. Nose: Nose normal. Mouth/Throat: Pharynx: Oropharynx is clear. Eyes: General: No scleral icterus. Right eye: No discharge. Left eye: No discharge. Conjunctiva/sclera: Conjunctivae normal. Cardiovascular: Rate and Rhythm: Normal rate. Heart sounds: Normal heart sounds. No murmur heard. No friction rub. No gallop. Pulmonary: Effort: Pulmonary effort is normal. No respiratory distress. Breath sounds: Normal breath sounds. No stridor. No wheezing, rhonchi or rales. Chest: Chest wall: No tenderness. Abdominal: General: Bowel sounds are normal. There is no distension. Palpations: Abdomen is soft. There is no mass. Tenderness: There is no abdominal tenderness. There is no right CVA tenderness, left CVA tenderness, guarding or rebound. Hernia: No hernia is present. Musculoskeletal: General: No swelling, tenderness, deformity or signs of injury. Normal range of motion. Cervical back: Normal range of motion and neck supple. No rigidity or tenderness. Right lower leg: No edema. Left lower leg: No edema. Lymphadenopathy: Cervical: No cervical adenopathy. Skin: General: Skin is warm and dry. Capillary Refill: Capillary refill takes less than 2 seconds. Coloration: Skin is not jaundiced or pale. Findings: No bruising, erythema, lesion or rash. Neurological: Mental Status: He is alert. Radiology: XR CHEST 1 VW Final Result PROCEDURE: XR CHEST 1 VW CLINICAL INDICATION: chest pain COMPARISON: 03/04/2025 FINDINGS: The lungs are partial expanded and clear. No pleural effusion or pneumothorax is seen. The cardiomediastinal silhouette is normal. No acute bony abnormality. IMPRESSION No acute intrathoracic abnormality. Lab Results: Lab Results URINALYSIS - Abnormal Result Value Ref Range APPEARANCE Clear Clear COLOR Yellow Yellow PH 7.0 4.8 - 8.0 SP GRAVITY 1.008 1.003 - 1.030 GLU U QUAL Normal Normal BLOOD Negative Negative KETONES Negative Negative PROTEIN Negative Negative UROBILIN Normal Normal BILIRUBIN Negative Negative NITRITE Negative Negative LEUK RANDAL Negative Negative RBC/HPF 1 0 - 3 HPF WBC/HPF 3 0 - 5 HPF BACTERIA Negative Negative MUCOUS Slight (*) Negative LPF CBC WITH DIFF - Abnormal WBC 8.64 4.20 - 10.70 10*3/?L RBC 3.78 (*) 4.26 - 5.52 10*6/?L HGB 12.2 12.2 - 16.4 g/dL HCT 34.8 (*) 38.4 - 49.3 % MCV 92.1 81.7 - 95.6 fL MCH 32.3 26.1 - 32.7 pg MCHC 35.1 (*) 31.2 - 35.0 g/dL RDW-SD 40.5 38.5 - 51.6 fL RDW-CV 12.2 12.1 - 15.4 % PLT 227 150 - 328 10*3/?L MPV 11.4 9.8 - 13.0 fL NRBC/100 WBC 0.0 0.0 - 10.0 /100 WBCs NRBC x10 3 <0.01 10*3/?L GRAN MAT (NEUT) % 66.7 % IMM GRAN % 0.20 % LYMPH % 22.0 % MONO % 7.2 % EOS % 3.2 % BASO % 0.7 % GRAN MAT x10 3 (ANC) 5.76 1.99 - 6.95 10*3/uL IMM GRAN x10 3 <0.03 0.00 - 0.06 10*3/uL LYMPH x10 3 1.90 1.09 - 3.23 10*3/uL MONO x10 3 0.62 0.36 - 1.02 10*3/uL EOS x10 3 0.28 0.06 - 0.53 10*3/uL BASO x10 3 0.06 0.01 - 0.09 10*3/uL COMP. METABOLIC PANEL (47325) - Abnormal NA 139 135 - 145 mmol/L K 4.2 3.5 - 5.0 mmol/L CL 103 98 - 108 mmol/L CO2 TOTAL 27 23 - 31 mmol/L AGAP 9 2 - 16 BUN 12 7 - 23 mg/dL GLUCOSE 130 (*) 70 - 110 mg/dL CREATININE 0.88 0.60 - 1.25 mg/dL TOTAL BILI 0.6 0.1 - 1.1 mg/dL CALCIUM 9.4 8.6 - 10.6 mg/dL T PROTEIN 6.8 6.3 - 8.2 g/dL ALBUMIN 4.1 3.5 - 5.0 g/dL ALK PHOS 78 34 - 122 U/L ALTv 23 5 - 50 U/L AST(SGOT) 21 13 - 40 U/L eGFR 95.4 mL/min/1.73m2 N-TERMINAL PRO-BNP - Abnormal NT-proBNP 198 <=125 pg/mL TROPONIN I - Normal TROPONIN I 0.002 <=0.034 ng/mL EKG: If EKG completed, see Procedure Note. Orders and Treatments: Orders Placed This Encounter Procedures XR CHEST 1 VW URINALYSIS CBC WITH DIFF COMP. 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 VPK TEACHER, JUBRIL O -- 04/07/25 1006 First Provider Evaluation HECTOR MARTINS NP -- AdmissionCare Guideline: Chest Pain, Observation Based on the indications selected for the patient, the bed status of Observation was determined to be MET The following indications were selected as present at the time of evaluation of the patient: - Observation Care Admission Criteria - Observation care is indicated for 1 or more of the following: - Chest pain (or other anginal equivalent) not classified as low risk for acute coronary syndrome, as indicated by 1 or more of the following: - Patient classified as intermediate risk or high risk for acute coronary syndrome (eg, via use of a clinical decision tool or risk calculator (eg, HEART score greater than 3)) Complications and Comorbidities selected: None AdmissionCare documentation entered by: Hector Martins [facility] TP[facility], 29th edition, Copyright ? 2024 [facility] [employer] All Rights Reserved. 1650-12-88R47:10:11-05:00 ED COURSE Labs, ECG, chest x-ray, Aspirin ED Course as of 04/07/25 1224 Sun Apr 07, 2025 1042 IMPRESSION No acute intrathoracic abnormality. [JA] ED Course User Index [JA] Hector Martins NP Diagnosis/Impression as of 04/07/25 1224 Chest pain, unspecified type Results Procedures: EKG-12 Lead ROUTINE ONCE Date/Time: 04/07/2025 10:06 AM Performed by: Hector Martins NP Authorized by: Hector Martins NP ECG interpreted by ED Physician in the absence of a engineer specialist: yes Previous ECG: Previous ECG: Compared to current Similarity: Changes noted Interpretation: Interpretation: abnormal Rate: ECG rate: 67 ECG rate assessment: normal Rhythm: Rhythm: sinus rhythm QRS: QRS axis: Normal QRS intervals: Normal QRS conduction: normal ST segments: ST segments: Non-specific T waves: T waves: inverted Inverted: AVR and V1 Q waves: Abnormal Q-waves: not present MDM: Bobsvetlana Abbott is a 64 year old male who present to the ED with chest pain with generalized weakness for few weeks that seem to be getting worse today. Was recently evaluated at the OR for similar symptoms. He rated his pain a 6 on a scale of 0 to 10 and described it as squeezing. DDX: ACS CARDIAC ARRHYTHMIA ELECTROLYTE ABNORMALITY DEHYDRATION UTI PNEUMONIA PE PULMONARY EDEMA PLEURISY COSTOCHONDRITIS INTRACRANIAL ABNORMALITY Assessment & Plan Medical Decision Making Bob Abbott is a 64 year old male who present to the ED with chest pain with generalized weakness for few weeks that seem to be getting worse today. Was recently evaluated at the OR for similar symptoms. He rated his pain a 6 on a scale of 0 to 10 and described it as squeezing. Problems Addressed: Chest pain, unspecified type: acute illness or injury Amount and/or Complexity of Data Reviewed Labs: ordered. Decision-making details documented in ED Course. Radiology: ordered. Decision-making details documented in ED Course. ECG/medicine tests: ordered. Decision-making details documented in ED Course. Risk OTC drugs. Parenteral controlled substances. Decision regarding hospitalization. Risk Details: Patient with chest pain and a heart score of 7. There is a possibility of worsening symptoms or negative outcomes for patient without further care and evaluation beyond ED. Patient is going to benefit from hospital stay, plan discussed with patient and he verbalized understanding and agrees. Flowsheet Documentation: Scoring Tools: No data recorded HEART Score: 7 Disposition/Condition: ED Disposition ED Disposition Admit - Observation Condition Stable Comment -- Discharge Medications: Patient's Medications START taking these medications No medications on file CONTINUE taking these medications which have NOT CHANGED ALBUTEROL 90 MCG/ACTUATION INHALER Inhale 2 Puffs every 6 (six) hours as needed. ATORVASTATIN 40 MG TABLET Take 1 tablet by mouth at bedtime. CALCITRIOL 0.25 MCG CAPSULE Take 1 capsule by mouth in the morning and 1 capsule in the evening. CLOPIDOGREL 75 MG TABLET Take 1 tablet by mouth in the morning. DOCUSATE 100 MG CAPSULE Take 2 capsules by mouth 2 times daily as needed for Constipation. DULOXETINE 60 MG CAPSULE Take 1 capsule by mouth in the morning. GABAPENTIN 300 MG CAPSULE Take 1 capsule by mouth in the morning and 1 capsule at noon and 1 capsule in the evening. INSULIN GLARGINE 100 UNIT/ML INJECTION inject 8 Units under the skin in the morning and 8 Units in the evening. MELATONIN 3 MG TABLET Take 1 tablet by mouth at bedtime. MEMANTINE 10 MG TABLET Take 1 tablet by mouth in the morning and 1 tablet in the evening. METFORMIN 850 MG TABLET Take 1 tablet 3 times a day by oral route. SENNOSIDES 8.6 MG TABLET Take 1 tablet by mouth in the morning and 1 tablet in the evening. SIMETHICONE 80 MG CHEWABLE TABLET Take 2 tablets by mouth 3 times daily with meals as needed for Gas. TIRZEPATIDE 7.5 MG/0.5 ML SUBCUTANEOUS INJECTION PEN inject 7.5 mg under the skin weekly. VITAMIN B-12 1,000 MCG TABLET Take 1 tablet by mouth in the morning. START taking Modified Medications as Prescribed No medications on file STOP taking these medications No medications on file Follow-up: Associated attestation - Dago Cordova MD - 04/09/2025 9:28 AM CDT Addendum I was personally available for consultation in the Emergency Department during this encounter and patient evaluation by Arleen Cordova MD, [facility] Emergency Medicine . [facility] 2025-04-07 09:59:00 AdmissionCare Guideline: Chest Pain, Observation Based on the indications selected for the patient, the bed status of Observation was determined to be MET The following indications were selected as present at the time of evaluation of the patient: - Observation Care Admission Criteria - Observation care is indicated for 1 or more of the following: - Chest pain (or other anginal equivalent) not classified as low risk for acute coronary syndrome, as indicated by 1 or more of the following: - Patient classified as intermediate risk or high risk for acute coronary syndrome (eg, via use of a clinical decision tool or risk calculator (eg, HEART score greater than 3)) Complications and Comorbidities selected: None AdmissionCare documentation entered by: Hector Martins [facility] TP[employer], 29th edition, Copyright ? 2024 [facility] [employer] [facility] All Rights Reserved. [id number]:10:11-05:00 [facility] 2025-03-19 11:01:52 Sent prescription for following meds to [facility] BY MAIL [facility] - [address] [phone] ?atorvastatin 40 mg tablet calcitrioL 0.25 mcg capsule clopidogreL 75 mg tablet DULoxetine 60 mg capsule gabapentin 300 mg capsule insulin glargine 100 unit/mL injection sennosides 8.6 mg tablet simethicone 80 mg chewable tablet Ayanna Iqbal MD PGY-[address] [facility] 2025-03-07 13:55:04 Routing to [place] nurses Jolly Baugh RN [facility] 2025-03-07 10:58:39 Cande with [facility] is calling in to inform provider that prescriptions for atorvastatin 40 mg tablet calcitrioL 0.25 mcg capsule clopidogreL 75 mg tablet DULoxetine 60 mg capsule gabapentin 300 mg capsule insulin glargine 100 unit/mL injection sennosides 8.6 mg tablet simethicone 80 mg chewable tablet Need to be resent to another pharmacy since [facility] is unable to fill prescriptions due to the pharmacy only being avail to spouses of veterans. Pt would need prescriptions sent to [facility] [place] Please address and advise [phone] (home) Loan Vitale [facility] 2025-03-06 19:04:19 Patient discharging home with , pt educated on discharge instructions and medications. Verbalized understanding. Cesilia Resendiz RN [facility] 2025-03-06 19:02:07 Problem: Falls, Risk of Goal: Absence of falls 03/06/20251901 by Cesilia Resendiz RN Outcome: Adequate for discharge 03/06/20251901 by Cesilia Resendiz RN Outcome: Progressing as expected Problem: Discharge Planning Goal: Adequate for discharge 03/06/20251901 by Cesilia Resendiz RN Outcome: Adequate for discharge 03/06/20251901 by Cesilia Resendiz RN Outcome: Progressing as expected Goal: Effective communication 03/06/20251901 by Cesilia Resendiz RN Outcome: Adequate for discharge 03/06/20251901 by Cesilia Resendiz RN Outcome: Progressing as expected Problem: Glucose control Goal: Glucose level within specified parameters 03/06/20251901 by Cesilia Resendiz RN Outcome: Adequate for discharge 03/06/20251901 by Cesilia Resendiz RN Outcome: Progressing as expected Problem: Cardiac Output - Decreased Goal: Cardiac output within specified parameters 03/06/20251901 by Cesilia Resendiz RN Outcome: Adequate for discharge 03/06/20251901 by Cesilia Resendiz RN Outcome: Progressing as expected Goal: Absence of signs and symptoms of decreased cardiac output 03/06/20251901 by Cesilia Resendiz RN Outcome: Adequate for discharge 03/06/20251901 by Cesilia Resendiz RN Outcome: Progressing as expected [facility] 2025-03-06 01:46:01 Problem: Falls, Risk of Goal: Absence of falls Outcome: Progressing as expected Problem: Discharge Planning Goal: Adequate for discharge Outcome: Progressing as expected Goal: Effective communication Outcome: Progressing as expected Problem: Glucose control Goal: Glucose level within specified parameters Outcome: Progressing as expected Problem: Cardiac Output - Decreased Goal: Cardiac output within specified parameters Outcome: Progressing as expected Goal: Absence of signs and symptoms of decreased cardiac output Outcome: Progressing as expected Symone Burgos RN [facility] 2025-03-05 12:48:41 Pt HR 60 bpm before performing 5 min exertion test. Pt ambulated 4ft with walker HR 65 bpm. Pt became lightheaded and dizzy. Pt brought back to bed and continued to do sit to stands for the remainder of the 5 mins. Pt HR dropped to 56 bpm upon standing and rebounded to 60 bpm while standing. Twyla Butt RN [facility] 2025-03-05 04:40:12 Problem: Falls, Risk of Goal: Absence of falls Outcome: Progressing as expected Problem: Discharge Planning Goal: Adequate for discharge Outcome: Progressing as expected Goal: Effective communication Outcome: Progressing as expected [facility] 2025-03-04 22:21:08 Report given to [facility]. Skin p/w/d, rr equal and non labored. A&Ox4. Patient able to transfer over to the ambulance stretcher without difficulties. Pita Abdi RN [facility] 2025-03-04 21:45:16 Report called to Lynsey LOPES at [facility]. Patient updated on plan of care. [facility] 2025-03-04 21:39:13 Called [facility] for transport @ 2135, ETA is 35 minutes from now. Irene Brown [facility] 2025-03-04 21:00:46 Patient resting in bed, updated on plan of care. Skin p/w/d, rr equal and non labored. A&Ox4. T [facility] 2025-03-04 19:07:57 Nurse Report Report given to MARIANNE Lema. Chief complaint, assessment findings, and orders reviewed. Plan of care discussed with both nurses. Guerita Dasilva RN Guerita Dasilva RN [facility] 2025-03-04 19:00:00 Assumed care from Guerita LOPES. Patient resting in bed, updated on plan of care. Denies further needs at this time. Skin p/w/d, rr equal and non labored. A&Ox4. [facility] 2025-03-04 17:33:00 Pt transported to [place] via wheelchair on conveyor monitor. Monitored by Justine Hewitt RN [facility] 2025-03-04 17:18:45 Pt arrived via ED wheelchair. Pt with him, okay to discuss medical care in front of her. Pt c/o numbness in both legs that started this morning 10am and pressure in his head since yesterday morning. reports patient keeps repeating himself when speaking and stuttering. Pt is A&ox4 in triage. July patient had neurological event and was given clot bluster. Maryann Alatorre RN [facility] - [facility] 2025-03-04 17:10:00 Associated Order(s): EKG-12 Lead ROUTINE ONCE Pre-Procedure Diagnose(s): Acute left-sided muscle weakness Post-Procedure Diagnose(s): Generalized weakness [facility] Emergency Department Note Patient Name: Bob Abbott Date of : 1960 64 year old male Treatment Room: [place] [address] Primary Care Physician: [facility] Patient Escorted by: Family [5] Mode of Arrival: Personal means [1] EMS Treatment Prior to ED Arrival: [facility] [employer] treatment: None Travel and Exposure Screening: Symptoms Does patient have any of these symptoms?: (not recorded) Exposure Screening Has patient had contact with someone with a communicable disease in the last month?: (not recorded) Diseases exposed to:: (not recorded) Is Patient ?: (not recorded) Exposure Date: (not recorded) Chief Complaint: Chief Complaint Patient presents with Weakness History of Present Illness: History of Present Illness Patient relates that he developed a fullness in his head yesterday. Today the patient relates that he developed weakness sometime this morning. He relates increased difficulty with walking and weakness of his legs and his arms. The left side is related to be more weak than the right. History provided by: Patient Past Medical History/Immunizations: Past Medical History: Diagnosis Date Anxiety disorder, unspecified BPH (benign prostatic hyperplasia) CAD (coronary artery disease) CVA (cerebral vascular accident) Mild dementia Peripheral neuropathy Tetanus received in last 5 years: Unknown Allergies: Allergies Allergen Reactions Pregabalin Other - See comments Vision changes Past Social History: Tobacco Use Every Day; Types: Cigarettes Smokeless Tobacco: Never used smokeless tobacco. Past Surgical History: Past Surgical History: Procedure Laterality Date PCI LAD THYROIDECTOMY Review of Systems: Review of Systems Constitutional: Positive for activity change. Negative for appetite change, chills and fever. HENT: Negative for facial swelling and tinnitus. Eyes: Negative for pain, discharge and redness. Respiratory: Negative for choking, chest tightness and shortness of breath. Cardiovascular: Negative for chest pain. Gastrointestinal: Negative for abdominal pain, diarrhea and vomiting. Genitourinary: Negative for urgency. Musculoskeletal: Positive for gait problem. Negative for neck pain and neck stiffness. Neurological: Positive for headaches. Physical Exam: Physical Exam ED Triage Vitals [03/04/25 1718] Weight 80.7 kg (178 lb) Actual or estimated Height 1.727 m (5' 8") BP 98/52 Pulse 55 Resp 18 Temp 37.2 ?C (99 ?F) Temp source Oral SpO2 99 % Measured on Room air Physical Exam Vitals reviewed. Constitutional: General: He is not in acute distress. HENT: Head: Normocephalic and atraumatic. Right Ear: Tympanic membrane, ear canal and external ear normal. There is no impacted cerumen. Left Ear: Tympanic membrane, ear canal and external ear normal. There is no impacted cerumen. Nose: Nose normal. No congestion or rhinorrhea. Mouth/Throat: Mouth: Mucous membranes are moist. Pharynx: Oropharynx is clear. No oropharyngeal exudate or posterior oropharyngeal erythema. Cardiovascular: Rate and Rhythm: Normal rate and regular rhythm. Pulses: Normal pulses. Heart sounds: Normal heart sounds. Pulmonary: Effort: Pulmonary effort is normal. Breath sounds: Normal breath sounds. Abdominal: General: Bowel sounds are normal. There is no distension. Palpations: Abdomen is soft. Tenderness: There is no abdominal tenderness. There is no guarding or rebound. Musculoskeletal: General: No swelling or deformity. Cervical back: Neck supple. No rigidity. Skin: Coloration: Skin is not jaundiced or pale. Neurological: Mental Status: He is alert. Radiology: XR Chest 1 vw Final Result CHEST ONE VIEW ORDERING PHYSICIAN: RONNIE SALAZAR CLINICAL HISTORY:weakness ; TECHNIQUE: Single frontal radiograph of the chest was obtained. COMPARISON: None available. FINDINGS: Cardiac silhouette is within normal limits. No focal lung consolidation. No pneumothorax. No acute osseous abnormality. IMPRESSION No acute cardiopulmonary abnormality. HS:Y RL: [id number] End of Report. ACUTE STROKE ANGIOGRAM HEAD Final Result CT STROKE ANGIOGRAM HEAD, CT STROKE ANGIOGRAM NECK HISTORY: Weakness of arms and legs, more pronounced on the left side. Bilateral leg numbness. COMPARISON: Same day prior noncontrast head CT TECHNIQUE: CT angiographic images of the head and neck were obtained after administration of IV contrast. Multiplanar reformats including maximum intensity projection images submitted for review. FINDINGS: CTA HEAD: The PICA origin is visualized on the left. AICA-PICA variant is present on the right. The basilar artery is normal in caliber. The superior cerebellar arteries are patent. The posterior cerebral arteries are patent. The distal cervical, petrous, cavernous and supraclinoid internal carotid segments are patent. Vascular calcifications in the carotid siphons result in no more than mild luminal narrowing. The anterior and middle cerebral arteries are patent. An anterior communicating artery is visualized. The dural venous sinuses are patent. CTA NECK: Conventional three-vessel arch anatomy. Atherosclerosis of the aortic arch. The great vessel ostia are patent. The bilateral subclavian arteries are patent. The common carotid arteries and bilateral cervical internal carotid arteries are patent. Atherosclerosis of the carotid bulbs noted bilaterally without causing significant stenosis. The vertebral artery ostia patent. Calcified atherosclerosis of the intradural left vertebral artery without flow-limiting stenosis. The visualized lung nieves are unremarkable. Visualized neck soft tissues are unremarkable. Enlarged right thyroid gland likely due to underlying nodules There are degenerative changes of the spine. IMPRESSION No large vessel occlusion or high-grade stenosis in the intracranial or cervical vessels. Enlarged right thyroid gland likely due to underlying nodules may be further assessed with ultrasound on a routine basis. Preliminary Report Dictated by Resident: Dana Noe MD., have reviewed this study and agree with the above report. CT ACUTE STROKE ANGIOGRAM NECK Final Result CT STROKE ANGIOGRAM HEAD, CT STROKE ANGIOGRAM NECK HISTORY: Weakness of arms and legs, more pronounced on the left side. Bilateral leg numbness. COMPARISON: Same day prior noncontrast head CT TECHNIQUE: CT angiographic images of the head and neck were obtained after administration of IV contrast. Multiplanar reformats including maximum intensity projection images submitted for review. FINDINGS: CTA HEAD: The PICA origin is visualized on the left. AICA-PICA variant is present on the right. The basilar artery is normal in caliber. The superior cerebellar arteries are patent. The posterior cerebral arteries are patent. The distal cervical, petrous, cavernous and supraclinoid internal carotid segments are patent. Vascular calcifications in the carotid siphons result in no more than mild luminal narrowing. The anterior and middle cerebral arteries are patent. An anterior communicating artery is visualized. The dural venous sinuses are patent. CTA NECK: Conventional three-vessel arch anatomy. Atherosclerosis of the aortic arch. The great vessel ostia are patent. The bilateral subclavian arteries are patent. The common carotid arteries and bilateral cervical internal carotid arteries are patent. Atherosclerosis of the carotid bulbs noted bilaterally without causing significant stenosis. The vertebral artery ostia patent. Calcified atherosclerosis of the intradural left vertebral artery without flow-limiting stenosis. The visualized lung nieves are unremarkable. Visualized neck soft tissues are unremarkable. Enlarged right thyroid gland likely due to underlying nodules There are degenerative changes of the spine. IMPRESSION No large vessel occlusion or high-grade stenosis in the intracranial or cervical vessels. Enlarged right thyroid gland likely due to underlying nodules may be further assessed with ultrasound on a routine basis. Preliminary Report Dictated by Resident: Dana Noe MD., have reviewed this study and agree with the above report. CT ACUTE STROKE HEAD WO CONTRAST Final Result CT STROKE HEAD WO CONTRAST HISTORY: Weakness of arms and legs, more pronounced on the left side. Bilateral leg numbness. COMPARISON: None TECHNIQUE: Noncontrast axial images of the head, with coronal and sagittal reformats. FINDINGS: The ventricles and cerebral sulci are normal in caliber and configuration. No hydrocephalus, midline shift or pathological extra-axial fluid collection is present. The basal cisterns are unremarkable. There is no acute intracranial hemorrhage or significant mass effect. No parenchymal attenuation abnormality. The green-white matter differentiation is preserved. The mastoid air cells and paranasal air sinuses are clear. The calvarium and central skull base are unremarkable. IMPRESSION No acute intracranial abnormality. Preliminary Report Dictated by Resident: Dana Noe MD., have reviewed this study and agree with the above report. Lab Results: Lab Results CBC WITHOUT DIFF - Abnormal Result Value Ref Range WBC 9.26 4.20 - 10.70 10*3/?L RBC 3.73 (*) 4.26 - 5.52 10*6/?L HGB 12.1 (*) 12.2 - 16.4 g/dL HCT 35.2 (*) 38.4 - 49.3 % MCH 32.4 26.1 - 32.7 pg MCV 94.4 81.7 - 95.6 fL MCHC 34.4 31.2 - 35.0 g/dL PLT 188 150 - 328 10*3/?L MPV 11.2 9.8 - 13.0 fL RDW-CV 12.3 12.1 - 15.4 % RDW-SD 42.8 38.5 - 51.6 fL NRBC x10 3 <0.01 10*3/?L NRBC/100 WBC 0.0 0.0 - 10.0 /100 WBCs IPF % BASIC METABOLIC PANEL (NA, K, CL, CO2, GLUCOSE, BUN, CREATININE, CA) - Abnormal NA 139 135 - 145 mmol/L K 4.1 3.5 - 5.0 mmol/L CL 103 98 - 108 mmol/L CO2 TOTAL 29 23 - 31 mmol/L AGAP 7 2 - 16 BUN 21 7 - 23 mg/dL GLUCOSE 112 (*) 70 - 110 mg/dL CREATININE 1.04 0.60 - 1.25 mg/dL CALCIUM 9.4 8.6 - 10.6 mg/dL eGFR 79.7 mL/min/1.73m2 URINALYSIS - Abnormal APPEARANCE Clear Clear COLOR Straw (*) Yellow PH 5.0 4.8 - 8.0 SP GRAVITY 1.027 1.003 - 1.030 GLU U QUAL Normal Normal BLOOD Negative Negative KETONES Negative Negative PROTEIN Negative Negative UROBILIN Normal Normal BILIRUBIN Negative Negative NITRITE Negative Negative LEUK RANDAL Negative Negative RBC/HPF 0 0 - 3 HPF WBC/HPF 2 0 - 5 HPF BACTERIA Negative Negative MUCOUS Slight (*) Negative LPF HYAL CAST 1 <=2 LPF POCT GLUCOSE (AUTOMATED) - Abnormal POCT GLU 118 (*) 70 - 110 mg/dL POCT GLUCOSE(AGE >30DAYS) - Normal POCT Glu (age>30days) 99 70 - 110 mg/dL PROTHROMBIN TIME / INR - Normal PROTIME PATIENT 12.2 10.1 - 12.6 Seconds INR 1.0 ACTIVATED PARTIAL THRMPLAS ROBER - Normal APTT Patient 30 26 - 36 Seconds TROPONIN I - Normal TROPONIN I 0.003 <=0.034 ng/mL POCT GLUCOSE (AUTOMATED) - Normal POCT GLU 99 70 - 110 mg/dL THYROID STIMULATING HORMONE - Normal TSH 0.71 0.45 - 4.70 mIU/L INFLUENZA A/B RSV COVID NAAT - Normal Influenza A NAAT Negative Negative Influenza B NAAT Negative Negative RSV by PCR Negative Negative SARS-CoV-2 NAAT Negative Negative LACTIC ACID WITH 2 HOUR REFLEX - Normal LACTIC ACID 1.42 0.50 - 2.20 mmol/L BLOOD CULTURE SCREEN BLOOD CULTURE SCREEN EKG: If EKG completed, see Procedure Note. Orders and Treatments: Orders Placed This Encounter Procedures CT ACUTE STROKE HEAD WO CONTRAST CT ACUTE STROKE ANGIOGRAM HEAD CT ACUTE STROKE ANGIOGRAM NECK XR Chest 1 vw POCT Glucose (Age >30 Days) - Code Stroke Prothrombin Time / INR - Code Stroke aPTT - Code Stroke CBC without Diff - Code Stroke Troponin I - Code Stroke Basic Metabolic Panel (NA, K, CL, CO2, Glucose, BUN, Creatinine, CA) - Code Stroke Urinalysis POCT GLUCOSE (AUTOMATED) POCT GLUCOSE (AUTOMATED) Thyroid Stimulating Hormone Influenza A B RSV COVID NAAT Blood Culture - Peripheral # 1 Blood Culture - Peripheral # 2 LACTIC ACID WITH 2 HOUR REFLEX Basic Metabolic Panel (NA, K, CL, CO2, GLUCOSE, BUN, CREATININE, CA) Magnesium Cbc with Diff O2 Nasal Cannula Orders Placed This Encounter Medications NaCl 0.9% (NS) injection 5 mL iopamidol (ISOVUE 370-500 mL) injection 83 mL NaCl 0.9% (NS) bolus infusion 1,000 mL acetaminophen (TYLENOL) tablet 650 mg NaCl 0.9% (NS) bolus infusion 1,000 mL atropine injection 1 mg heparin (porcine) injection 5,000 Units acetaminophen (TYLENOL) tablet 650 mg First Provider Eval: ED Events Date/Time Event User Comments 03/04/251734 Medical Screening Begins RONNIE SALAZAR DO -- 03/04/251734 First Provider Evaluation RONNIE SALAZAR DO -- ED COURSE Diagnosis/Impression as of 03/04/25 2343 Throbbing headache Generalized weakness Bradycardia Results Procedures: EKG-12 Lead ROUTINE ONCE Date/Time: 03/04/2025 6:33 PM Performed by: Ronnie Salazar DO Authorized by: Ronnie Salazar DO ECG interpreted by ED Physician in the absence of a engineer specialist: yes Interpretation: Interpretation: non-specific Rate: ECG rate: 54 ECG rate assessment: bradycardic Rhythm: Rhythm: sinus bradycardia Ectopy: Ectopy: none QRS: QRS axis: Normal QRS intervals: Wide Details: IRBBB ST segments: ST segments: Normal T waves: T waves: normal Q waves: Abnormal Q-waves: not present MDM: Assessment & Plan Medical Decision Making Patient was evaluated for the complaint of Weakness Diagnoses considered but not limited to: Dehydration Hypernatremia Hypoglycemia Hyponatremia Intracerebral Bleed Pneumonia Sepsis Subarachnoid Bleed Subdural Hematoma Transient Ischemic Attack Urinary Tract Infection Volume Depletion Encephalitis Myocardial Infarction (acute). Labs:were ordered, and resulted, any relevant abnormalities were considered. Imaging:Ordered, and resulted, any relevant abnormalities were considered. Procedures:were not performed. History, physical exam findings, results of visit, diagnosis, medication regimens and plan of future care have been considered. Additional MDM may be found in the ED course. Vital signs were rechecked before final disposition and determined to be stable. Amount and/or Complexity of Data Reviewed Labs: ordered. Decision-making details documented in ED Course. Radiology: ordered. Decision-making details documented in ED Course. Risk OTC drugs. Prescription drug management. Decision regarding hospitalization. Flowsheet Documentation: LOC: 0 Alert: Keenly Responsive LOC QUESTIONS: 0 Answers Both Questions Correctly LOC COMMANDS: 0 Performs Both Tasks Correctly BEST GAZE: 0 Normal VISUAL: 0 No Visual Loss FACIAL PALSY: 0 Normal MOTOR ARM-LEFT: 1 Drift MOTOR ARM-RIGHT: 0 No Drift MOTOR LEG-LEFT: 1 Drift MOTOR LEG-RIGHT: 0 No Drift LIMB ATAXIA: 1 Present in One Limb SENSORY: 0 Normal BEST LANGUAGE: 0 No Aphasia DYSARTHRIA: 0 Normal EXTINCTION AND INATTENTION (FORMERLY NEGLECT): 0 No Abnormalty STROKE SCALE TOTAL SCORE: 3 NIH STROKE SCALE LOC: 0 Alert: Keenly Responsive LOC QUESTIONS: 0 Answers Both Questions Correctly LOC COMMANDS: 0 Performs Both Tasks Correctly BEST GAZE: 0 Normal VISUAL: 0 No Visual Loss FACIAL PALSY: 0 Normal MOTOR ARM-LEFT: 1 Drift MOTOR ARM-RIGHT: 0 No Drift MOTOR LEG-LEFT: 1 Drift MOTOR LEG-RIGHT: 0 No Drift LIMB ATAXIA: 1 Present in One Limb SENSORY: 0 Normal BEST LANGUAGE: 0 No Aphasia DYSARTHRIA: 0 Normal EXTINCTION AND INATTENTION (FORMERLY NEGLECT): 0 No Abnormalty STROKE SCALE INTERVAL: Admission STROKE SCALE TOTAL SCORE: 3 STROKE SCALE INTERVAL: Admission STROKE SCALE TOTAL SCORE: 3 Scoring Tools: No data recorded Disposition/Condition: ED Disposition ED Disposition Transfer - [facility] to IP/Obs Condition -- Comment -- Discharge Medications: Current Discharge Medication List STOP taking these medications albuterol 90 mcg/actuation inhaler Comments: Reason for Stopping: aspirin 81 mg EC tablet Comments: Reason for Stopping: atorvastatin 40 mg tablet Comments: Reason for Stopping: buPROPion XL 150 mg 24 hr tablet Comments: Reason for Stopping: clopidogreL 75 mg tablet Comments: Reason for Stopping: DULoxetine 20 mg capsule Comments: Reason for Stopping: gabapentin 300 mg capsule Comments: Reason for Stopping: Insulin Detemir 100 unit/mL (3 mL) injection Comments: Reason for Stopping: insulin glargine-yfgn 100 unit/mL (3 mL) InPn Comments: Reason for Stopping: isosorbide mononitrate 30 mg 24 hr tablet Comments: Reason for Stopping: lamoTRIgine 25 mg tablet Comments: Reason for Stopping: losartan 50 mg tablet Comments: Reason for Stopping: memantine 10 mg tablet Comments: Reason for Stopping: metFORMIN 850 mg tablet Comments: Reason for Stopping: semaglutide 1 mg/dose (4 mg/3 mL) PnIj Comments: Reason for Stopping: tamsulosin 0.4 mg 24 hr capsule Comments: Reason for Stopping: Follow-up: Electronically signed by: Ronnie Salazar DO 03/04/25 2343 [facility] 2024-08-08 23:06:00 [id number] [facility] [address] [place] [address] PATIENT NAME: BOB ABBOTT ADMIT DATE: 08/04/24 ACCOUNT NO: [id number] ROOM NO: [facility] AGE: 64 REPORT TYPE: eECHOCARDIOGRAM REPORT SEX: M ADMITTING PHYSICIAN: Enzo Jauregui MD ATTENDING PHYSICIAN: Enzo Jauregui MD *[facility]* [id number] [place] [id number] Limited Transthoracic Echocardiogram Patient: Bob Abbott Study Date: 08/07/2024 BP: 143 / 70 URN: [id number] Location: : 1960 Age: 64 Gender: M Height: 67.7 in / 172 cm Weight: 175 lb / 79.4 kg BMI/BSA: 26.8 kg/m 2 / 1.96 m 2 *Ordering Physician: * Kojo Rangel MD *Interpreting Physician: * Kojo Rangel MD *Java Tech Lead: * Lesli Purcell Indications: CVA BUBBLE STUDY. Study data: Transthoracic echocardiogram, limited study. Procedure: A transthoracic echocardiogram was performed. Image quality was adequate. Intravenous contrast (agitated saline) was administered. Limited 2D and limited spectral Doppler. Location: Bedside. Patient status: Inpatient. Patient room number: 304. Study status: Routine. Heart rate: 51 bpm. Findings Atrial septum: Color Doppler and/or agitated saline contrast study shows no shunt. PATIENT NAME: BOB ABBOTT Conclusions Summary: Atrial septum: Color Doppler and/or agitated saline contrast study shows no shunt. Electronically signed by Kojo Rangel MD 08/08/2024 23:05 at 2306 PATIENT NAME: BOB ABBOTT [facility] 2024-08-07 14:58:00 [facility] ([facility]) Hospitalist Progress Note REPORT#:[id number] REPORT STATUS: Signed REPORT INITIALIZATION DATE:08/07/24 TIME:1457 PATIENT: BOB ABBOTT UNIT #: [id number] ROOM/BED: [place] [address] : [birth year] AGE: 64 SEX: M ATTEND: Enzo Jauregui MD ADM AUTHOR: Tulio Owens MD REPT SERVICE DT/TIME: 08/07/241457 * ALL edits or amendments must be made on the electronic/computer document * Subjective Chief complaint: Right-sided facial droop and left-sided weakness rule out stroke versus seizure S/p TNK HPI: 84-year-old male past medical history of diabetes type 2, CAD status post PCI to LAD coronary on Plavix in 7 years, peripheral neuropathy and TIA 1-1/2 years ago. Presented after a syncopal episode followed by right-sided facial droop and left-sided weakness around 1320 this afternoon. History of diabetes, SANCHO, PTSD, hypertension. Presenting via EMS due to concern for stroke alert. Last known normal 1320. Was at [facility] when he syncopized after complaining of dizziness. Epigastric "squeezing". Per , he had a facial droop and alert slurred speech. Decreased sensation to the left lower extremity. Decresed strength left lower extremity. Tremors to left upper extremity Free Text Subj Notes Free Text Subj Notes: Patient was admitted for syncope Pending rehab placement Review of Systems Free Text ROS Notes Free Text ROS Notes: Denies CP, N/V , dizziness and palpitations Objective General Medications: Active Meds + DC'd Last 24 Hrs Iopamidol (ISOVUE-370) 0 .STK-MED ONE .ROUTE (DC) Sodium Chloride (SODIUM CHLORIDE 0.9%) 100 ML .STK-MED ONE IV (DC) Famotidine (PEPCID) 20 MG DAILY PO (DC) Amlodipine Besylate (NORVASC) 5 MG BEDTIME PO Atorvastatin Calcium (LIPITOR) 40 MG DAILY 1700 PO Enoxaparin Sodium (lovENOX) 40 MG DAILY SUBQ Clopidogrel Bisulfate (Plavix) 75 MG DAILY PO Isosorbide Mononitrate (IMDUR) 30 MG DAILY PO Losartan Potassium (COZAAR) 50 MG DAILY PO Perflutren Lipid Microsphere (DEFINITY) 2 ML ONCE PRN IV (CKD) Dextrose (GLUCOSE) 4 GM ASDIR PRN PO Dextrose/Water (DEXTROSE 10% IN WATER 250 ML) 250 ML ASDIR IV Glucagon (GLUCAGON) 1 MG ASDIR PRN IM Donepezil HCl (ARICEPT) 10 MG DAILY PO Duloxetine HCl (CYMBALTA) 60 MG DAILY PO Tamsulosin HCl (FLOMAX) 0.4 MG DAILY PO Gabapentin (NEURONTIN) 900 MG Q8HR PO Aripiprazole (ABILIFY) 10 MG BEDTIME PO Melatonin (Melatonin) 5 MG BEDTIME PRN PRN PO Memantine (NAMENDA) 10 MG BID PO Mupirocin (BACTROBAN) 1 APPLIC BID NASAL Polyethylene Glycol (MIRALAX) 17 GM DAILY PRN PRN PO Magnesium Oxide (MAG-OX 400) 400 MG Q8H PRN PRN PO Magnesium Sulfate (MAGNESIUM SULFATE 2 G IN SWFI 50 ML) 50 ML ASDIR PRN IV Magnesium Sulfate (MAGNESIUM SULFATE 2 G IN SWFI 50 ML) 50 ML Q2H PRN PRN IV Phosphorus (K-PHOS NEUTRAL) 500 MG Q4H PRN PRN PO Phosphorus (K-PHOS NEUTRAL) 500 MG Q4H PRN PRN PO Potassium Chloride (POTASSIUM CHLORIDE 10 MEQ/SWFI 50 ML) 50 ML ASDIR PRN IV Potassium Chloride (KCL 20 MEQ/SWFI 100 ML) 100 ML ASDIR PRN IV Potassium Chloride (KCL 20 MEQ/SWFI 100 ML) 100 ML ASDIR PRN IV Potassium Chloride (KCL 20 MEQ/SWFI 100 ML) 100 ML ASDIR PRN IV Potassium Chloride (K-DUR 20 mEq) 20 MEQ ASDIR PRN PO Potassium Chloride (K-DUR 20 mEq) 20 MEQ ASDIR PRN PO Potassium Phosphate (POTASSIUM PHOSPHATE) 20 MMOL ASDIR PRN IV Sodium Chloride (SODIUM CHLORIDE 0.9%) 250 ML Potassium Phosphate (POTASSIUM PHOSPHATE) 30 MMOL ASDIR PRN IV Sodium Chloride (SODIUM CHLORIDE 0.9%) 250 ML Sodium Biphosphate (SODIUM PHOSPHATE) 20 MMOL ASDIR PRN IV Sodium Chloride (SODIUM CHLORIDE 0.9%) 250 ML Sodium Biphosphate (SODIUM PHOSPHATE) 30 MMOL ASDIR PRN IV Sodium Chloride (SODIUM CHLORIDE 0.9%) 250 ML Sodium Phosphate (SODIUM PHOS 15 MMOL/ NS 250ML) 250 ML ASDIR PRN IV Undefined Medication (POTASSIUM PHOS 15 MMOL/ NS 250ML) 250 ML ASDIR PRN IV Insulin Human Lispro (HUMALOG) 0 Q6H SUBQ Free Text Obj Notes Free Text Obj Notes: HEENT:atraumatic CVS: S1-S2 audible Resp: Normal vesicular breathing Neuro: Right upper extremity 5/5 Right lower extremity 4 /5 at baseline Left upper extremity 4/5 at baseline Left lower extremity 4/5 at baseline Patient reports currently neurological status seems to be at baseline No facial droop noted Diagnosis, Assessment Plan Free Text DxA P Notes Free text DxA P notes: #Syncope with jerking movement likely secondary to seizure versus cardiogenic syncope #Past medical history of CAD #Bifascicular Block #Post TNK for possible stroke ruled out Case discussed with Neurology about subclavian steal syndrome. Neurologist stated less likely due to CTA Head and Neck showing no significant occlusion TNK protocol Patient is treated with statin Also on Plavix Continue necessary home medication Sawmill Worker, engineer specialist and neurology saw patient input appreciated Patient is presently on insulin Telemonitoring Echo reviewed Code full Bedrest Seizure, aspiration, fall precautions Dispo Patient is pending placement Will follow-up with consult outpatient Case discussed with patient and patient Case discussed at [facility] at 1501 RPT #: [id number] END OF REPORT [facility] 2024-08-07 10:56:00 [facility] ([facility]) Hospitalist Discharge Summary REPORT#:[id number] REPORT STATUS: Signed REPORT INITIALIZATION DATE:08/07/24 TIME:105 PATIENT: BOB ABBOTT UNIT #: [id number] ROOM/BED: [place] [id number] : 59 AGE: 64 SEX: M ATTEND: Enzo Jauregui MD ADM AUTHOR: Tulio Owens MD REPT SERVICE DT/TIME: 08/07/24 1056 * ALL edits or amendments must be made on the electronic/computer document * General Information Discharge date: 08/07/24 Discharge diagnosis: syncope Hospital course: Please see free text below Free Text DxA P Notes Free text DxA P notes: #Syncope #Past medical history of CAD #Bifascicular Block #Post TNK for possible stroke ruled out #Pre-existing severe neuropathy and significant sensory and motor deficits #Diabetes mellitus type 2 Pre-existing stent to the LAD History of PTSD Patient was admitted and monitored on telemetry . Patient was treated with plavix and statin . Home BP meds restarted gradually . Patient was treated with insulin . Patient had physical theraphy . Echo was done SCDs Hydration Lispro sliding scale Blood glucose monitoring Dysphagia screen Neurology ,email marketing executive and engineer specialist input appreciated home meds restarted Code full Bedrest Seizure, aspiration, fall precautions Dispo Patient seen at bedside with and want to be discharged Patient is cleared for discharge by consults Outpatient follow up with consults Patient has placement at rehab rn ostomy involved with placement . Med Rec Med Rec Discharge meds: Continue taking these medications: GABAPENTIN (NEURONTIN) 300 MG CAP 900 MILLIGRAM ORAL THREE TIMES A DAY. CLOPIDOGREL (PLAVIX) 75 MG TAB 75 MILLIGRAM ORAL DAILY. amLODIPine (NORVASC) 5 MG TAB 5 MILLIGRAM ORAL DAILY. ISOSORBIDE MONONITRATE SR (IMDUR) 30 MG TAB.SR.24H 30 MILLIGRAM ORAL DAILY. TAMSULOSIN ER (FLOMAX) 0.4 MG CAP.SR.24H 0.4 MILLIGRAM ORAL DAILY. ATORVASTATIN (LIPITOR) 40 MG TAB 40 MILLIGRAM ORAL DAILY. ARIPiprazole (ABILIFY) 5 MG TAB 10 MILLIGRAM ORAL BEDTIME. DULoxetine DR (CYMBALTA) 60 MG CAP.DR 60 MILLIGRAM ORAL DAILY. DONEPEZIL (ARICEPT) 10 MG TAB 10 MILLIGRAM ORAL DAILY. CYANOCOBALAMIN (VITAMIN B-12) 1,000 MCG TAB 1,000 MICROGRAM ORAL DAILY. ERGOCALCIFEROL (VITAMIN D2) 1,250 MCG (50,000 UNIT) CAP 50,000 UNITS ORAL Q30D LOSARTAN (COZAAR) 50 MG TAB 50 MILLIGRAM ORAL DAILY. MEMANTINE (MEMANTINE) 10 MG TAB 10 MILLIGRAM ORAL TWICE DAILY. metFORMIN (metFORMIN) 500 MG TAB 500 MILLIGRAM ORAL TWICE DAILY. Instructions: TAKE WITH MEALS Objective Results Radiology data: Recent Impressions: CAT SCAN - CTA CHEST 08/07 1143 Report Impression - Status: SIGNED Entered: 08/07/2024 1235 IMPRESSION: Suboptimal pulmonary arterial opacification limiting the evaluation for segmental and subsegmental pulmonary artery emboli, however no main or central pulmonary emboli. Impression By: Bryan Garcia MD CAT SCAN - CTA NECK 08/07 1144 Report Impression - Status: SIGNED Entered: 08/07/2024 1237 IMPRESSION: No hemodynamically significant stenosis or occlusion. REFERENCES: NASCET CRITERIA. The degree of stenosis in the cervical segment of the internal carotid artery is based on NASCET criteria. Normal is no stenosis. Mild is less than 50% stenosis. Moderate is 50-69% stenosis. Severe is 70% to 99% stenosis. Total occlusion is no detectable patent lumen. Impression By: Bryan Garcia MD Free Text Obj Notes Free Text Obj Notes: General appearance: alert, awake, no acute distress.Patient at bedside. Head/Eyes: atraumatic, clear cornea, normal conjunctiva/sclera, normocephalic ENT: moist mucosal membranes Neck: full range of motion, non-tender, supple/no meningismus, no bruit / NL carotids, no masses or swelling Cardiovascular: regular rate and rhythm , normal heart sounds, no murmur Respiratory: aerating well, clear to auscultation, no distress Extremities: moves all, normal inspection, normal temperature, pulses present, no edema Musculoskeletal: full range of motion, normal inspection Skin: dry, intact, normal color, normal temperature Discharge Instructions Additional Discharge Routines: PCP Follow-Up at 1740 RPT #: [id number] END OF REPORT [facility] 2024-08-07 10:19:00 [facility] ([facility]) Pulmonology Progress Note REPORT#:[id number] REPORT STATUS: Signed REPORT INITIALIZATION DATE:08/07/24 TIME:1019 PATIENT: BOB ABBOTT UNIT #: [id number] ROOM/BED: [place] [address] : 58 AGE: 64 SEX: M ATTEND: Enzo Jauregui MD ADM AUTHOR: Dashawn Lopez MD REPT SERVICE DT/TIME: 08/07/24 1019 * ALL edits or amendments must be made on the electronic/computer document * Subjective Chief complaint: Syncope and left-sided weakness and slurred speech HPI: 64-year-old male with known diabetes and cardiac stent and previous TIA and severe neuropathy who was getting a haircut and the daniels noticed that he passed out and he called his . He came back with a certain amount of stimulation and he was noted to have heavily slurred speech and his left side was weak. They also felt that he may have right side facial droop. This has resolved since then. He was given TNK upon arrival in the left side weakness has improved. The patient and his feel that this is back to his baseline. He apparently has severe neuropathy that worsened after he had COVID in 2020 and he needs to use a rollator to get around. The symptoms you are describing above are on top of the existing neurologic weaknesses and may present a confounding picture specially that he may have had syncope where hypoperfusion may also exacerbate existing deficits. At this time he has no headaches. He has no fever. He has no chest pain and no shortness of breath. Objective General VS/I O: Last Documented: Result Date Time Pulse Ox 98 08/07 601 B/P 138/66 08/07 601 B/P Mean 93 08/07 601 Pulse 71 08/07 601 Resp 21 08/07 601 Temp 36.7 08/07 0344 O2 Delivery Nasal cannula 08/05 1200 24 hour I O ending at 0700: 08/07 0700 08/06 1900 Intake Total 160 1500 Output Total 1200 1600 Balance -1040 -100 Intake, Oral 160 1500 Number Voids 2 Output, Urine 1200 1600 PATIENT WEIGHT: Weight (lb): 175 Weight (oz): 15.99 Weight (kg): 79.832 Medications: Active Meds + DC'd Last 24 Hrs Famotidine (PEPCID) 20 MG DAILY PO (DC) Amlodipine Besylate (NORVASC) 5 MG BEDTIME PO Atorvastatin Calcium (LIPITOR) 40 MG DAILY 1700 PO Enoxaparin Sodium (lovENOX) 40 MG DAILY SUBQ Clopidogrel Bisulfate (Plavix) 75 MG DAILY PO Isosorbide Mononitrate (IMDUR) 30 MG DAILY PO Losartan Potassium (COZAAR) 50 MG DAILY PO Perflutren Lipid Microsphere (DEFINITY) 2 ML ONCE PRN IV (CKD) Dextrose (GLUCOSE) 4 GM ASDIR PRN PO Dextrose/Water (DEXTROSE 10% IN WATER 250 ML) 250 ML ASDIR IV Glucagon (GLUCAGON) 1 MG ASDIR PRN IM Donepezil HCl (ARICEPT) 10 MG DAILY PO Duloxetine HCl (CYMBALTA) 60 MG DAILY PO Tamsulosin HCl (FLOMAX) 0.4 MG DAILY PO Gabapentin (NEURONTIN) 900 MG Q8HR PO Aripiprazole (ABILIFY) 10 MG BEDTIME PO Melatonin (Melatonin) 5 MG BEDTIME PRN PRN PO Memantine (NAMENDA) 10 MG BID PO Mupirocin (BACTROBAN) 1 APPLIC BID NASAL Polyethylene Glycol (MIRALAX) 17 GM DAILY PRN PRN PO Magnesium Oxide (MAG-OX 400) 400 MG Q8H PRN PRN PO Magnesium Sulfate (MAGNESIUM SULFATE 2 G IN SWFI 50 ML) 50 ML ASDIR PRN IV Magnesium Sulfate (MAGNESIUM SULFATE 2 G IN SWFI 50 ML) 50 ML Q2H PRN PRN IV Phosphorus (K-PHOS NEUTRAL) 500 MG Q4H PRN PRN PO Phosphorus (K-PHOS NEUTRAL) 500 MG Q4H PRN PRN PO Potassium Chloride (POTASSIUM CHLORIDE 10 MEQ/SWFI 50 ML) 50 ML ASDIR PRN IV Potassium Chloride (KCL 20 MEQ/SWFI 100 ML) 100 ML ASDIR PRN IV Potassium Chloride (KCL 20 MEQ/SWFI 100 ML) 100 ML ASDIR PRN IV Potassium Chloride (KCL 20 MEQ/SWFI 100 ML) 100 ML ASDIR PRN IV Potassium Chloride (K-DUR 20 mEq) 20 MEQ ASDIR PRN PO Potassium Chloride (K-DUR 20 mEq) 20 MEQ ASDIR PRN PO Potassium Phosphate (POTASSIUM PHOSPHATE) 20 MMOL ASDIR PRN IV Sodium Chloride (SODIUM CHLORIDE 0.9%) 250 ML Potassium Phosphate (POTASSIUM PHOSPHATE) 30 MMOL ASDIR PRN IV Sodium Chloride (SODIUM CHLORIDE 0.9%) 250 ML Sodium Biphosphate (SODIUM PHOSPHATE) 20 MMOL ASDIR PRN IV Sodium Chloride (SODIUM CHLORIDE 0.9%) 250 ML Sodium Biphosphate (SODIUM PHOSPHATE) 30 MMOL ASDIR PRN IV Sodium Chloride (SODIUM CHLORIDE 0.9%) 250 ML Sodium Phosphate (SODIUM PHOS 15 MMOL/ NS 250ML) 250 ML ASDIR PRN IV Undefined Medication (POTASSIUM PHOS 15 MMOL/ NS 250ML) 250 ML ASDIR PRN IV Insulin Human Lispro (HUMALOG) 0 Q6H SUBQ Physical Exam ENT: ENT: normal pharynx Neck: normal thyroid, no JVD Cardiovascular: normal heart sounds, regular rate rhythm Respiratory/chest: aerating well Abdomen: soft, non-tender Genitourinary: no flank pain Extremities: moves all, no edema Musculoskeletal: no muscle spasm Neuro/FLATWORK FINISHER: left hemiparesis, sensory deficit Skin: dry Lymphatics: no lymphadenopathy Psychiatry: no hallucinations Results Findings/Data: Laboratory Tests 08/07/24 0336: [Embedded Image Not Available] Laboratory Tests 08/07 08/07 08/07 08/06 08/06 0545 0336 49 2008 1751 Chemistry Sodium (136 - 145 mmol/L) 142 Potassium (3.4 - 5.0 mmol/L) 4.2 Chloride (98 - 107 mmol/L) 106 Carbon Dioxide (21 - 32 mmol/L) 28 Anion Gap (4 - 15 GAP calc) 8 BUN (7 - 18 MG/DL) 7 Creatinine (0.6 - 1.0 MG/DL) 0.9 Glomerular Filtr Rate (>60 >=60 max estimate estGFR) Glucose (70 - 110 MG/DL) 118 H POC Glucose (70 - 110 mg/dL) 124 H 121 H 82 185 H Calcium (8.5 - 10.1 MG/DL) 8.5 Phosphorus (2.5 - 4.9 MG/DL) 4.2 Magnesium (1.8 - 2.4 MG/DL) 2.1 08/06 1047 Chemistry C-Reactive Protein (0 - 0.9 MG/DL) 0.0 Laboratory Tests 08/07 1047 Hematology WBC (3.5 - 11.0 K/mm3) 8.2 RBC (4.70 - 6.10 M/mm3) 3.79 L Hgb (12.3 - 15.9 G/DL) 11.9 L Hct (35.8 - 46.7 %) 34.3 L MCV (86.3 - 98.9 Fl) 90.5 MCH (28.9 - 34.4 pg) 31.4 MCHC (32.1 - 34.5 G/DL) 34.7 H RDW (11.5 - 14.5 SD) 12.5 Plt Count (150 - 450 K/mm3) 190 MPV (7.0 - 9.6 fL) 10.70 H Neut % (Auto) (40 - 76 %) 55.6 Lymph % (Auto) (20.5 - 51.1 %) 33.4 [place] % (Auto) (1.7 - 9.3 %) 6.2 Eos % (Auto) (0.0 - 6.0 %) 4.0 Baso % (Auto) (0.0 - 2.0 %) 0.6 Neut # (Auto) (1.8 - 7.6 K/mm3) 4.5 Lymph # (Auto) (0.6 - 3.0 K/mm3) 2.7 [place] # (Auto) (0.2 - 1.5 K/mm3) 0.5 Eos # (Auto) (0.0 - 0.4 K/mm3) 0.3 Baso # (Auto) (0.0 - 0.2 K/mm3) 0.1 Abs Immat Gran (auto) (0.00 - 0.03 x10 3/uL) 0.02 Immature Gran % (0.0 - 5.0 %) 0.2 Nucleated RBC % (0.0 - 1.0 /100WBC%) 0.0 ESR (0 - 15 mm/hr) 9 Laboratory Tests 08/06 1047 Immunology Rheumatoid Factor Scrn (<14.0 IU/mL) <10.0 Diagnosis, Assessment Plan Free Text A P: Acute stroke with improvement after TNK administration Pre-existing severe neuropathy and significant sensory and motor deficits Diabetes mellitus type 2 Pre-existing stent to the LAD History of PTSD Recommendations: Patient received TNK in the emergency room At this time the patient is back to baseline with mild weakness of the left arm. patient to be follow Antiplatelet agents per neurology Need evaluation for subclavian steal symdrome CTA neck and Chest before DC to be done Cardiology on board add pepcid DVT prophylaxis at 1021 RPT #: [id number] END OF REPORT [facility] 2024-08-07 08:47:00 [facility] ([facility]) Cardiology Progress Note REPORT#:[id number] REPORT STATUS: Signed REPORT INITIALIZATION DATE:08/07/24 TIME:846 PATIENT: BOB ABBOTT UNIT #: [id number] ROOM/BED: [facility] : 59 AGE: 64 SEX: M ATTEND: Enzo Jauregui MD ADM AUTHOR: Kojo Rangel MD REPT SERVICE DT/TIME: 08/07/2447 * ALL edits or amendments must be made on the electronic/computer document * Subjective HPI: 64-year-old male past medical history of diabetes type 2, CAD status post PCI to LAD coronary on Plavix in 7 years, peripheral neuropathy and TIA 1-1/2 years ago. Presented after a syncopal episode followed by right-sided facial droop and left-sided weakness around 1320 this afternoon. History of diabetes, SANCHO, PTSD, hypertension. Presenting via EMS due to concern for stroke alert. Last known normal 1320. patient states that he was at a barbershop when he started feeling dizzy and eventually syncopized.Patient subsequently had an MRI done which did not show any acute intracranial abnormality patient was brought to the ED. As a possible stroke alert. Patient at time my examination denies any complaints. Has any active chest pain. Does have known history of CAD. Telemetry review showed sinus bradycardia. Troponin is negative. Review of system: 10 point of systems negative except HPI Free Text Subj Notes Free Text Subj Notes: Patient examined at bedside. Telemetry reviewed asymptomatic bradycardia. Objective General VS/I O: 24 hour I O ending at 0700: 08/07 0700 08/06 1900 Intake Total 160 1500 Output Total 1200 1600 Balance -1040 -100 Intake, Oral 160 1500 Number Voids 2 Output, Urine 1200 1600 Vital Signs: Date Time Temp Pulse Resp B/P B/P Pulse O2 O2 Flow FiO2 Mean Ox Delivery Rate 08/07 0601 71 21 138/66 93 98 08/07 0531 48 16 143/70 100 97 08/07 0501 50 15 124/58 84 92 08/07 0431 49 12 133/64 92 98 08/07 0401 50 14 143/67 97 96 08/07 0344 98.1 08/07 0331 52 13 115/59 84 96 08/07 0300 51 16 132/59 85 85 08/07 0231 50 14 123/56 81 97 08/07 0201 51 12 133/62 89 96 08/07 0131 48 10 140/62 89 97 08/07 0100 53 15 118/56 80 97 08/07 0030 54 13 114/56 80 96 08/07 0002 98.1 08/07 0000 49 17 112/59 82 96 08/06 2330 48 21 121/61 86 96 08/06 2300 48 13 120/61 86 96 08/06 2230 48 14 137/70 98 97 08/06 2200 47 19 126/64 89 97 08/06 2130 46 20 128/69 93 96 08/06 2101 47 13 141/69 99 97 08/06 2030 51 15 139/73 101 97 08/06 2000 49 19 134/58 88 97 08/06 1930 98.6 08/06 1930 52 28 120/64 87 98 08/06 1901 57 27 140/64 92 98 08/06 1815 52 22 97 08/06 1800 53 30 120/67 88 97 08/06 1745 53 17 142/65 93 98 08/06 1730 56 27 98 08/06 1715 51 19 96 08/06 1700 51 20 97 08/06 1645 51 22 97 08/06 1630 54 39 98 08/06 1615 49 18 98 08/06 1600 61 27 98 08/06 1545 52 16 98 08/06 1530 52 27 98 08/06 1516 53 19 104/53 73 98 08/06 1515 51 17 08/06 1500 55 37 99 08/06 1445 52 22 98 08/06 1431 64 19 149/67 94 98 08/06 1430 74 31 98 08/06 1415 53 18 97 08/06 1400 49 15 110/60 79 95 08/06 1200 98.2 52 20 144/77 99 99 PATIENT WEIGHT: Weight (lb): 175 Weight (oz): 15.99 Weight (kg): 79.832 Medications: Active Meds + DC'd Last 24 Hrs Famotidine (PEPCID) 20 MG DAILY PO (DC) Amlodipine Besylate (NORVASC) 5 MG BEDTIME PO Atorvastatin Calcium (LIPITOR) 40 MG DAILY 1700 PO Enoxaparin Sodium (lovENOX) 40 MG DAILY SUBQ Clopidogrel Bisulfate (Plavix) 75 MG DAILY PO Isosorbide Mononitrate (IMDUR) 30 MG DAILY PO Losartan Potassium (COZAAR) 50 MG DAILY PO Perflutren Lipid Microsphere (DEFINITY) 2 ML ONCE PRN IV (CKD) Dextrose (GLUCOSE) 4 GM ASDIR PRN PO Dextrose/Water (DEXTROSE 10% IN WATER 250 ML) 250 ML ASDIR IV Glucagon (GLUCAGON) 1 MG ASDIR PRN IM Donepezil HCl (ARICEPT) 10 MG DAILY PO Duloxetine HCl (CYMBALTA) 60 MG DAILY PO Tamsulosin HCl (FLOMAX) 0.4 MG DAILY PO Gabapentin (NEURONTIN) 900 MG Q8HR PO Aripiprazole (ABILIFY) 10 MG BEDTIME PO Melatonin (Melatonin) 5 MG BEDTIME PRN PRN PO Memantine (NAMENDA) 10 MG BID PO Mupirocin (BACTROBAN) 1 APPLIC BID NASAL Polyethylene Glycol (MIRALAX) 17 GM DAILY PRN PRN PO Magnesium Oxide (MAG-OX 400) 400 MG Q8H PRN PRN PO Magnesium Sulfate (MAGNESIUM SULFATE 2 G IN SWFI 50 ML) 50 ML ASDIR PRN IV Magnesium Sulfate (MAGNESIUM SULFATE 2 G IN SWFI 50 ML) 50 ML Q2H PRN PRN IV Phosphorus (K-PHOS NEUTRAL) 500 MG Q4H PRN PRN PO Phosphorus (K-PHOS NEUTRAL) 500 MG Q4H PRN PRN PO Potassium Chloride (POTASSIUM CHLORIDE 10 MEQ/SWFI 50 ML) 50 ML ASDIR PRN IV Potassium Chloride (KCL 20 MEQ/SWFI 100 ML) 100 ML ASDIR PRN IV Potassium Chloride (KCL 20 MEQ/SWFI 100 ML) 100 ML ASDIR PRN IV Potassium Chloride (KCL 20 MEQ/SWFI 100 ML) 100 ML ASDIR PRN IV Potassium Chloride (K-DUR 20 mEq) 20 MEQ ASDIR PRN PO Potassium Chloride (K-DUR 20 mEq) 20 MEQ ASDIR PRN PO Potassium Phosphate (POTASSIUM PHOSPHATE) 20 MMOL ASDIR PRN IV Sodium Chloride (SODIUM CHLORIDE 0.9%) 250 ML Potassium Phosphate (POTASSIUM PHOSPHATE) 30 MMOL ASDIR PRN IV Sodium Chloride (SODIUM CHLORIDE 0.9%) 250 ML Sodium Biphosphate (SODIUM PHOSPHATE) 20 MMOL ASDIR PRN IV Sodium Chloride (SODIUM CHLORIDE 0.9%) 250 ML Sodium Biphosphate (SODIUM PHOSPHATE) 30 MMOL ASDIR PRN IV Sodium Chloride (SODIUM CHLORIDE 0.9%) 250 ML Sodium Phosphate (SODIUM PHOS 15 MMOL/ NS 250ML) 250 ML ASDIR PRN IV Undefined Medication (POTASSIUM PHOS 15 MMOL/ NS 250ML) 250 ML ASDIR PRN IV Insulin Human Lispro (HUMALOG) 0 Q6H SUBQ Free Text Obj Notes Free Text Obj Notes: GENERAL: Well developed, comfortable, in no distress HEENT: Normocephalic, atraumatic NECK: JVP not raised, no carotid bruit CHEST: Normal shape and contour LUNGS: Equal air entry bilaterally, normal vesicular breathing HEART: regular rate, normal S1 and S2, No murmurs, rubs or gallops ABDOMEN: Soft, lax, non-tender, non-distended PERIPHERAL PULSES: 2+ dorsalis pedis pulses EXTREMITIES: No edema, no clubbing or cyanosis NEUROLOGIC:no gross motor or sensory deficits Diagnosis, Assessment Plan Free Text DxA P Notes Free Text DxA P Notes: Syncope ?? Acute CVA s/p TNK CAD Patient echo showed preserved ejection fraction. Will order limited bubble study as well Continue on aspirin, statin Continue to monitor on telemetry If no further arrhythmias patient can follow-up patient for an event monitor Discussed the findings with the patient and the Keep K above 4 and mag above 2 08/07/2024: Patient is doing well. No further symptoms. Asymptomatic bradycardia on telemetry. Echo shows preserved EF with no evidence of PFO on bubble study. Recommend outpatient cardiac event monitor. No further inpatient cardiac workup. Cardiology will sign off. Please call with any questions. at 2305 RPT #: [id number] END OF REPORT [facility] 2024-08-06 09:49:00 [facility] ([facility]) Pulmonology Progress Note REPORT#:[id number] REPORT STATUS: Signed REPORT INITIALIZATION DATE:08/06/24 TIME:948 PATIENT: BOB ABBOTT UNIT #: [id number] ROOM/BED: .ICU05-1 : 58 AGE: 64 SEX: M ATTEND: Enzo Jauregui MD ADM AUTHOR: Dashawn Lopez MD REPT SERVICE DT/TIME: 08/06/24948 * ALL edits or amendments must be made on the electronic/computer document * Subjective Chief complaint: Syncope and left-sided weakness and slurred speech HPI: 64-year-old male with known diabetes and cardiac stent and previous TIA and severe neuropathy who was getting a haircut and the daniels noticed that he passed out and he called his . He came back with a certain amount of stimulation and he was noted to have heavily slurred speech and his left side was weak. They also felt that he may have right side facial droop. This has resolved since then. He was given TNK upon arrival in the left side weakness has improved. The patient and his feel that this is back to his baseline. He apparently has severe neuropathy that worsened after he had COVID in 2020 and he needs to use a rollator to get around. The symptoms you are describing above are on top of the existing neurologic weaknesses and may present a confounding picture specially that he may have had syncope where hypoperfusion may also exacerbate existing deficits. At this time he has no headaches. He has no fever. He has no chest pain and no shortness of breath. Objective General VS/I O: Last Documented: Result Date Time Pulse Ox 97 08/06 816 Pulse 62 08/06 816 Resp 16 08/06 816 B/P 147/66 08/06 801 B/P Mean 95 08/06 801 Temp 36.7 08/06 08 O2 Delivery Nasal cannula 08/05 1200 24 hour I O ending at 0700: 08/06 0700 08/05 1900 Intake Total 1100.00 1176.00 Output Total 1850 1150 Balance -750.00 26.00 Intake, IV 1100.00 600.00 Intake, Oral 576 Number 1 Bowel Movements Output, Urine 1850 1150 Patient 79.832 kg Weight Weight Bed scale Measurement Method PATIENT WEIGHT: Weight (lb): 175 Weight (oz): 15.99 Weight (kg): 79.832 Medications: Active Meds + DC'd Last 24 Hrs Amlodipine Besylate (NORVASC) 5 MG BEDTIME PO Atorvastatin Calcium (LIPITOR) 40 MG DAILY 1700 PO Clopidogrel Bisulfate (Plavix) 75 MG DAILY PO Isosorbide Mononitrate (IMDUR) 30 MG DAILY PO Losartan Potassium (COZAAR) 50 MG DAILY PO Atorvastatin Calcium (LIPITOR) 80 MG DAILY 1700 PO (DC) Perflutren Lipid Microsphere (DEFINITY) 2 ML ONCE PRN IV (CKD) Dextrose (GLUCOSE) 4 GM ASDIR PRN PO Dextrose/Water (DEXTROSE 10% IN WATER 250 ML) 250 ML ASDIR IV Glucagon (GLUCAGON) 1 MG ASDIR PRN IM Donepezil HCl (ARICEPT) 10 MG DAILY PO Duloxetine HCl (CYMBALTA) 60 MG DAILY PO Tamsulosin HCl (FLOMAX) 0.4 MG DAILY PO Gabapentin (NEURONTIN) 900 MG Q8HR PO Aripiprazole (ABILIFY) 10 MG BEDTIME PO Melatonin (Melatonin) 5 MG BEDTIME PRN PRN PO Memantine (NAMENDA) 10 MG BID PO Mupirocin (BACTROBAN) 1 APPLIC BID NASAL Polyethylene Glycol (MIRALAX) 17 GM DAILY PRN PRN PO Sodium Chloride (0.9% Sodium Chloride) 1,000 ML .Q10H IV (DC) Magnesium Oxide (MAG-OX 400) 400 MG Q8H PRN PRN PO Magnesium Sulfate (MAGNESIUM SULFATE 2 G IN SWFI 50 ML) 50 ML ASDIR PRN IV Magnesium Sulfate (MAGNESIUM SULFATE 2 G IN SWFI 50 ML) 50 ML Q2H PRN PRN IV Phosphorus (K-PHOS NEUTRAL) 500 MG Q4H PRN PRN PO Phosphorus (K-PHOS NEUTRAL) 500 MG Q4H PRN PRN PO Potassium Chloride (POTASSIUM CHLORIDE 10 MEQ/SWFI 50 ML) 50 ML ASDIR PRN IV Potassium Chloride (KCL 20 MEQ/SWFI 100 ML) 100 ML ASDIR PRN IV Potassium Chloride (KCL 20 MEQ/SWFI 100 ML) 100 ML ASDIR PRN IV Potassium Chloride (KCL 20 MEQ/SWFI 100 ML) 100 ML ASDIR PRN IV Potassium Chloride (K-DUR 20 mEq) 20 MEQ ASDIR PRN PO Potassium Chloride (K-DUR 20 mEq) 20 MEQ ASDIR PRN PO Potassium Phosphate (POTASSIUM PHOSPHATE) 20 MMOL ASDIR PRN IV Sodium Chloride (SODIUM CHLORIDE 0.9%) 250 ML Potassium Phosphate (POTASSIUM PHOSPHATE) 30 MMOL ASDIR PRN IV Sodium Chloride (SODIUM CHLORIDE 0.9%) 250 ML Sodium Biphosphate (SODIUM PHOSPHATE) 20 MMOL ASDIR PRN IV Sodium Chloride (SODIUM CHLORIDE 0.9%) 250 ML Sodium Biphosphate (SODIUM PHOSPHATE) 30 MMOL ASDIR PRN IV Sodium Chloride (SODIUM CHLORIDE 0.9%) 250 ML Sodium Phosphate (SODIUM PHOS 15 MMOL/ NS 250ML) 250 ML ASDIR PRN IV Undefined Medication (POTASSIUM PHOS 15 MMOL/ NS 250ML) 250 ML ASDIR PRN IV Insulin Human Lispro (HUMALOG) 0 Q6H SUBQ Physical Exam ENT: ENT: normal pharynx Neck: normal thyroid, no JVD Cardiovascular: normal heart sounds, regular rate rhythm Respiratory/chest: aerating well Abdomen: soft, non-tender Genitourinary: no flank pain Extremities: moves all, no edema Musculoskeletal: no muscle spasm Neuro/FLATWORK FINISHER: left hemiparesis, sensory deficit Skin: dry Lymphatics: no lymphadenopathy Psychiatry: no hallucinations Results Findings/Data: Laboratory Tests 08/06/24 0458: [Embedded Image Not Available] Laboratory Tests 08/06 08/06 08/06 08/05 0638 0458 0013 1707 Chemistry Sodium (136 - 145 mmol/L) 143 Potassium (3.4 - 5.0 mmol/L) 3.5 Chloride (98 - 107 mmol/L) 107 Carbon Dioxide (21 - 32 mmol/L) 26 Anion Gap (4 - 15 GAP calc) 10 BUN (7 - 18 MG/DL) 7 Creatinine (0.6 - 1.0 MG/DL) 0.8 Glomerular Filtr Rate (>60 estGFR) >=60 max estimate Glucose (70 - 110 MG/DL) 140 H POC Glucose (70 - 110 mg/dL) 158 H 151 H 158 H Calcium (8.5 - 10.1 MG/DL) 8.9 Phosphorus (2.5 - 4.9 MG/DL) 3.6 Magnesium (1.8 - 2.4 MG/DL) 1.8 08/05 1113 Chemistry POC Glucose (70 - 110 mg/dL) 155 H Laboratory Tests 08/06 0458 Hematology WBC (3.5 - 11.0 K/mm3) 7.5 RBC (4.70 - 6.10 M/mm3) 3.89 L Hgb (12.3 - 15.9 G/DL) 12.0 L Hct (35.8 - 46.7 %) 35.2 L MCV (86.3 - 98.9 Fl) 90.5 MCH (28.9 - 34.4 pg) 30.8 MCHC (32.1 - 34.5 G/DL) 34.1 RDW (11.5 - 14.5 SD) 12.5 Plt Count (150 - 450 K/mm3) 194 MPV (7.0 - 9.6 fL) 10.80 H Neut % (Auto) (40 - 76 %) 55.6 Lymph % (Auto) (20.5 - 51.1 %) 33.3 [place] % (Auto) (1.7 - 9.3 %) 6.3 Eos % (Auto) (0.0 - 6.0 %) 3.7 Baso % (Auto) (0.0 - 2.0 %) 0.8 Neut # (Auto) (1.8 - 7.6 K/mm3) 4.2 Lymph # (Auto) (0.6 - 3.0 K/mm3) 2.5 [place] # (Auto) (0.2 - 1.5 K/mm3) 0.5 Eos # (Auto) (0.0 - 0.4 K/mm3) 0.3 Baso # (Auto) (0.0 - 0.2 K/mm3) 0.1 Abs Immat Gran (auto) (0.00 - 0.03 x10 3/uL) 0.02 Immature Gran % (0.0 - 5.0 %) 0.3 Nucleated RBC % (0.0 - 1.0 /100WBC%) 0.0 Radiology data: Recent Impressions: MAGNETIC RESONANCE IMAGING - MRI BRAIN W/O CONTRAST 08/05 1800 Report Impression - Status: SIGNED Entered: 08/05/20242000 IMPRESSION: 1. No acute intracranial abnormality. 2. 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 Impression By: Jake Desouza M.D CAT SCAN - CT HEAD/BRAIN W/O CONT 08/05 1850 Report Impression - Status: SIGNED Entered: 08/05/20242001 IMPRESSION: No acute intracranial abnormality. Impression By: Jake Desouza M.D Diagnosis, Assessment Plan Free Text A P: Acute stroke with improvement after TNK administration Pre-existing severe neuropathy and significant sensory and motor deficits Diabetes mellitus type 2 Pre-existing stent to the LAD History of PTSD Recommendations: Patient received TNK in the emergency room At this time the patient is back to baseline with mild weakness of the left arm. There is a pronator drift there. DG to IMU patient to be follow Speech is back to normal Antiplatelet agents per neurology Need evaluation for subclavian steal symdrome add pepcid DVT prophylaxis at 1236 RPT #: [id number] END OF REPORT [facility] 2024-08-06 09:32:00 [id number] [facility] [address] [place] [address] PATIENT NAME: BOB ABBOTT ADMIT DATE: 08/04/24 ACCOUNT NO: [id number] ROOM NO: [place] [address] AGE: 64 REPORT TYPE: eECHOCARDIOGRAM REPORT SEX: M ADMITTING PHYSICIAN: Enzo Jauregui MD ATTENDING PHYSICIAN: Enzo Jauregui MD *[facility]* [address] [place], [place] [address] Transthoracic Echocardiogram Patient: Bob Abbott Study Date: 08/06/2024 BP: 159 / 79 URN: [id number] Location: : 1960 Age: 64 Gender: M Height: 67.7 in / 172 cm Weight: 176 lb / 79.8 kg BMI/BSA: 27 kg/m 2 / 1.97 m 2 *Ordering Physician: Enzo Perry *Interpreting Physician: Kojo Adame MD *Java Tech Lead: Lesli Lares Indications: STROKE. Study data: Transthoracic echocardiogram. Procedure: A transthoracic echocardiogram was performed. Image quality was adequate. Complete 2D, complete spectral Doppler, and color Doppler. Location: Bedside. Patient status: Inpatient. Patient room number: ICU5. Study status: Routine. Heart rate: 60 bpm. Findings Left ventricle: The cavity size is normal. Wall thickness is normal. Systolic function is normal. The estimated ejection fraction is 55-60%. Wall motion is normal; there are no regional wall motion abnormalities. Left ventricular diastolic function parameters are indeterminate. PATIENT NAME: BOB ABBOTT Right ventricle: The cavity size is normal. Systolic function is normal. Left atrium: The atrium is normal in size. Right atrium: The atrium is normal in size. Aortic valve: The valve is trileaflet. The leaflets are mildly calcified. There is no evidence of stenosis. There is mild regurgitation. Mitral valve: The leaflets are mildly calcified. There is no evidence of stenosis. There is mild regurgitation. Tricuspid valve: The valve is structurally normal. There is mild regurgitation. Pulmonic valve: The valve is structurally normal. There is mild regurgitation. Pericardium: There is no pericardial effusion. Systemic veins: Inferior vena cava: The IVC is normal-sized. Measurements Left ventricle Value Ref SANDRA, LAX 4.6 cm 4.2 - 5.8 ESD, LAX 3.4 cm 2.5 - 4.0 FS, LAX 27 % 25 - 43 IVS, ED 1.0 cm 0.6 - 1.0 PW, ED 1.1 cm 0.6 - 1.0 IVS/PW, ED 0.88 --------- EF 53 % 52 - 72 LVOT Value Ref Diam, S 2.08 cm --------- Area 3.4 cm 2 --------- Peak arnulfo, S 1.06 m/sec --------- Mean arnulfo, S 0.81 m/sec --------- VTI, S 25.1 cm --------- Peak grad, S 5 mm Hg --------- Mean grad, S 3 mm Hg --------- SV 86 ml --------- SV/bsa 43 ml/m 2 --------- Right ventricle Value Ref Pressure, S 34 mm Hg --------- Left atrium Value Ref Vol/bsa, ES, 1-p A4C 19 ml/m 2 12 - 37 Vol/bsa, ES, A/L 21 ml/m 2 16 - 34 AP dim, ES MM 4.5 cm 3.0 - 4.0 LA/Ao root ratio, MM 1.52 --------- Aortic valve Value Ref Leaflet sep, MM 1.85 cm --------- Peak v, S 1.7 m/sec --------- Mean v, S 1.21 m/sec --------- VTI, S 38.6 cm --------- Mean grad, S 6 mm Hg --------- Peak grad, S 11.1 mm Hg --------- PATIENT NAME: BOB ABBOTT LVOT/AV, VTI ratio 0.65 --------- IRENE, VTI 2.22 cm 2 --------- LVOT/AV, Vpeak ratio 0.64 --------- IRENE, Vmax 2.18 cm 2 --------- AR peak v 3.58 m/sec --------- AR decel 158.59 cm/s 2 --------- AR decel time 2260 ms --------- AR PHT 655 ms --------- AR peak grad 51 mm Hg --------- Mitral valve Value Ref Peak E 0.77 m/sec --------- Peak A 0.65 m/sec --------- Decel time 258 ms --------- PHT 40 ms --------- Peak grad, D 2.4 mm Hg --------- Peak E/A ratio 1.19 --------- MVA, PHT 5.6 cm 2 --------- MR peak v 4.8 m/sec --------- Pulmonic valve Value Ref WA peak v 0.93 m/sec --------- WA peak grad 3 mm Hg --------- Tricuspid valve Value Ref TR peak v 2.7 m/sec <=2.8 Peak RV-RA grad, S 29 mm Hg --------- Aortic root Value Ref Root diam, ED MM 2.9 cm --------- Pulmonary artery Value Ref Pressure, S 29.4 mm Hg --------- Systemic veins Value Ref Estimated CVP 5 mm Hg --------- Conclusions Summary: 1. Left ventricle: The cavity size is normal. Wall thickness is normal. Systolic function is normal. The estimated ejection fraction is 55-60%. Wall motion is normal; there are no regional wall motion abnormalities. Left ventricular diastolic function parameters are indeterminate. 2. Right ventricle: The RV pressure during systole is 34 mm Hg. Electronically signed by Kojo Rangel MD 08/06/2024 09:32 PATIENT NAME: BOB ABBOTT at 0932 PATIENT NAME: BOB ABBOTT [facility] 2024-08-06 09:10:00 [facility] ([facility]) Cardiology Consultation REPORT#:[id number] REPORT STATUS: Signed REPORT INITIALIZATION DATE:08/06/24 TIME:909 PATIENT: BOB ABBOTT UNIT #: [id number] ROOM/BED: [place] [address] : 59 AGE: 64 SEX: M ATTEND: Enzo Jauregui MD ADM AUTHOR: Kojo Rangel MD REPT SERVICE DT/TIME: 08/06/24 09 * ALL edits or amendments must be made on the electronic/computer document * History of Present Illness HPI HPI: 64-year-old male past medical history of diabetes type 2, CAD status post PCI to LAD coronary on Plavix in 7 years, peripheral neuropathy and TIA 1-1/2 years ago. Presented after a syncopal episode followed by right-sided facial droop and left-sided weakness around 1320 this afternoon. History of diabetes, SANCHO, PTSD, hypertension. Presenting via EMS due to concern for stroke alert. Last known normal 1320. patient states that he was at a barbershop when he started feeling dizzy and eventually syncopized.Patient subsequently had an MRI done which did not show any acute intracranial abnormality patient was brought to the ED. As a possible stroke alert. Patient at time my examination denies any complaints. Has any active chest pain. Does have known history of CAD. Telemetry review showed sinus bradycardia. Troponin is negative. Review of system: 10 point of systems negative except HPI History - Adult longitudinal Past medical history: Reports: Coronary artery disease, Dementia, Diabetes mellitus (Comp. by peripheral neuropathy), Hypertension, Kidney disease/stones (Nephrolithiasis), Transient ischemic attack, Dyslipidemia. Additional medical history: Severe neuropathy where he has to use a rollator. This became worse after he had COVID in 2020. At that time he was hospitalized for just 2 days and it did not affect his respiratory system. Diabetes mellitus PTSD PCI to the LAD 7 years ago TIA 1.5 years ago Past surgical history: Reports: PCI (Stent(s) placed), Thyroidectomy (Left thyroid lobectomy). Family history: Reports: Diabetes, Heart disease (Maternal GF-, [place]), Hypertension. 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, Local resident, Good social support Allergies: Coded Allergies: No Known Allergies (08/04/24) Objective General VS/I O: Vital Signs: Date Time Temp Pulse Resp B/P B/P Pulse O2 O2 Flow FiO2 Mean Ox Delivery Rate 08/06 1930 98.6 08/06 1815 52 22 97 08/06 1800 53 30 120/67 88 97 08/06 1745 53 17 142/65 93 98 08/06 1730 56 27 98 08/06 1715 51 19 96 08/06 1700 51 20 97 08/06 1645 51 22 97 08/06 1630 54 39 98 08/06 1615 49 18 98 08/06 1600 61 27 98 08/06 1545 52 16 98 08/06 1530 52 27 98 08/06 1516 53 19 104/53 73 98 08/06 1515 51 17 08/06 1500 55 37 99 08/06 1445 52 22 98 08/06 1431 64 19 149/67 94 98 08/06 1430 74 31 98 08/06 1415 53 18 97 08/06 1400 49 15 110/60 79 95 08/06 1200 98.2 52 20 144/77 99 99 08/06 0816 62 16 97 08/06 0815 59 16 96 08/06 0801 61 32 147/66 95 97 08/06 0800 98.0 58 18 145/66 92 99 08/06 0800 60 18 98 08/06 0745 58 37 98 08/06 0731 57 32 178/77 111 96 08/06 0730 58 44 96 08/06 0715 59 20 99 08/06 0701 64 21 154/71 102 98 08/06 0700 58 13 97 08/06 0638 52 21 170/74 107 99 08/06 0600 59 34 160/84 112 97 08/06 0530 52 157/69 99 98 08/06 0501 53 150/68 98 97 08/06 0441 47 12 159/79 109 98 08/06 0401 47 13 149/65 94 95 08/06 0400 97.4 08/06 0331 59 16 147/69 99 96 08/06 0301 46 14 153/67 96 95 08/06 0231 47 16 166/79 114 97 08/06 0200 50 18 132/60 87 94 08/06 0131 52 13 115/62 83 97 08/06 0101 46 19 146/68 98 94 08/06 0031 47 15 144/68 98 97 08/06 0001 60 20 170/77 110 99 08/06 0000 97.2 08/05 2331 47 15 176/73 105 99 08/05 2300 48 12 137/99 115 96 24 hour I O ending at 0700: 08/06 0700 08/05 1900 Intake Total 1100.00 1176.00 Output Total 1850 1150 Balance -750.00 26.00 Intake, IV 1100.00 600.00 Intake, Oral 576 Number 1 Bowel Movements Output, Urine 1850 1150 Patient 79.832 kg Weight Weight Bed scale Measurement Method PATIENT WEIGHT: Weight (lb): 175 Weight (oz): 15.99 Weight (kg): 79.832 Medications: Active Meds + DC'd Last 24 Hrs Famotidine (PEPCID) 20 MG DAILY PO Amlodipine Besylate (NORVASC) 5 MG BEDTIME PO Atorvastatin Calcium (LIPITOR) 40 MG DAILY 1700 PO Enoxaparin Sodium (lovENOX) 40 MG DAILY SUBQ Clopidogrel Bisulfate (Plavix) 75 MG DAILY PO Isosorbide Mononitrate (IMDUR) 30 MG DAILY PO Losartan Potassium (COZAAR) 50 MG DAILY PO Perflutren Lipid Microsphere (DEFINITY) 2 ML ONCE PRN IV (CKD) Dextrose (GLUCOSE) 4 GM ASDIR PRN PO Dextrose/Water (DEXTROSE 10% IN WATER 250 ML) 250 ML ASDIR IV Glucagon (GLUCAGON) 1 MG ASDIR PRN IM Donepezil HCl (ARICEPT) 10 MG DAILY PO Duloxetine HCl (CYMBALTA) 60 MG DAILY PO Tamsulosin HCl (FLOMAX) 0.4 MG DAILY PO Gabapentin (NEURONTIN) 900 MG Q8HR PO Aripiprazole (ABILIFY) 10 MG BEDTIME PO Melatonin (Melatonin) 5 MG BEDTIME PRN PRN PO Memantine (NAMENDA) 10 MG BID PO Mupirocin (BACTROBAN) 1 APPLIC BID NASAL Polyethylene Glycol (MIRALAX) 17 GM DAILY PRN PRN PO Magnesium Oxide (MAG-OX 400) 400 MG Q8H PRN PRN PO Magnesium Sulfate (MAGNESIUM SULFATE 2 G IN SWFI 50 ML) 50 ML ASDIR PRN IV Magnesium Sulfate (MAGNESIUM SULFATE 2 G IN SWFI 50 ML) 50 ML Q2H PRN PRN IV Phosphorus (K-PHOS NEUTRAL) 500 MG Q4H PRN PRN PO Phosphorus (K-PHOS NEUTRAL) 500 MG Q4H PRN PRN PO Potassium Chloride (POTASSIUM CHLORIDE 10 MEQ/SWFI 50 ML) 50 ML ASDIR PRN IV Potassium Chloride (KCL 20 MEQ/SWFI 100 ML) 100 ML ASDIR PRN IV Potassium Chloride (KCL 20 MEQ/SWFI 100 ML) 100 ML ASDIR PRN IV Potassium Chloride (KCL 20 MEQ/SWFI 100 ML) 100 ML ASDIR PRN IV Potassium Chloride (K-DUR 20 mEq) 20 MEQ ASDIR PRN PO Potassium Chloride (K-DUR 20 mEq) 20 MEQ ASDIR PRN PO Potassium Phosphate (POTASSIUM PHOSPHATE) 20 MMOL ASDIR PRN IV Sodium Chloride (SODIUM CHLORIDE 0.9%) 250 ML Potassium Phosphate (POTASSIUM PHOSPHATE) 30 MMOL ASDIR PRN IV Sodium Chloride (SODIUM CHLORIDE 0.9%) 250 ML Sodium Biphosphate (SODIUM PHOSPHATE) 20 MMOL ASDIR PRN IV Sodium Chloride (SODIUM CHLORIDE 0.9%) 250 ML Sodium Biphosphate (SODIUM PHOSPHATE) 30 MMOL ASDIR PRN IV Sodium Chloride (SODIUM CHLORIDE 0.9%) 250 ML Sodium Phosphate (SODIUM PHOS 15 MMOL/ NS 250ML) 250 ML ASDIR PRN IV Undefined Medication (POTASSIUM PHOS 15 MMOL/ NS 250ML) 250 ML ASDIR PRN IV Insulin Human Lispro (HUMALOG) 0 Q6H SUBQ Free Text Obj Notes Free Text Obj Notes: GENERAL: Well developed, comfortable, in no distress HEENT: Normocephalic, atraumatic NECK: JVP not raised, no carotid bruit CHEST: Normal shape and contour LUNGS: Equal air entry bilaterally, normal vesicular breathing HEART: regular rate, normal S1 and S2, No murmurs, rubs or gallops ABDOMEN: Soft, lax, non-tender, non-distended PERIPHERAL PULSES: 2+ dorsalis pedis pulses EXTREMITIES: No edema, no clubbing or cyanosis NEUROLOGIC:no gross motor or sensory deficits Diagnosis, Assessment Plan Free Text DxA P Notes Free Text DxA P Notes: Syncope ?? Acute CVA s/p TNK CAD Patient echo showed preserved ejection fraction. Will order limited bubble study as well Continue on aspirin, statin Continue to monitor on telemetry If no further arrhythmias patient can follow-up patient for an event monitor Discussed the findings with the patient and the Keep K above 4 and mag above 2 Thank you for the consultation. Will continue to follow follow the patient at 2242 RPT #: [id number] END OF REPORT [facility] 2024-08-06 08:28:00 [facility] Hospitalist Progress Note REPORT#:[id number] REPORT STATUS: Signed REPORT INITIALIZATION DATE:08/06/24 TIME:827 PATIENT: BOB ABBOTT UNIT #: [id number] ROOM/BED: [place] [address] : 58 AGE: 64 SEX: M ATTEND: Enzo Jauregui MD ADM AUTHOR: Enzo Jauregui MD REPT SERVICE DT/TIME: 08/06/24827 * ALL edits or amendments must be made on the electronic/computer document * See Addendum Subjective Chief complaint: Right-sided facial droop and left-sided weakness rule out stroke versus seizure S/p TNK HPI: 84-year-old male past medical history of diabetes type 2, CAD status post PCI to LAD coronary on Plavix in 7 years, peripheral neuropathy and TIA 1-1/2 years ago. Presented after a syncopal episode followed by right-sided facial droop and left-sided weakness around 1320 this afternoon. History of diabetes, SANCHO, PTSD, hypertension. Presenting via EMS due to concern for stroke alert. Last known normal 1320. Was at [facility] when he syncopized after complaining of dizziness. Epigastric "squeezing". Per , he had a facial droop and alert slurred speech. Decreased sensation to the left lower extremity. Decresed strength left lower extremity. Tremors to left upper extremity Review of Systems Free Text ROS Notes Free Text ROS Notes: Denies CP, N/V , dizziness and palpitations Objective General VS/I O: Vital Signs: Date Time Temp Pulse Resp B/P B/P Pulse O2 O2 Flow FiO2 Mean Ox Delivery Rate 08/06 2300 48 13 120/61 86 96 08/06 2230 48 14 137/70 98 97 08/06 2200 47 19 126/64 89 97 08/06 2130 46 20 128/69 93 96 08/06 2101 47 13 141/69 99 97 08/06 2030 51 15 139/73 101 97 08/06 2000 49 19 134/58 88 97 08/06 1930 37.0 08/06 1930 52 28 120/64 87 98 08/06 1901 57 27 140/64 92 98 08/06 1815 52 22 97 08/06 1800 53 30 120/67 88 97 08/06 1745 53 17 142/65 93 98 08/06 1730 56 27 98 08/06 1715 51 19 96 08/06 1700 51 20 97 08/06 1645 51 22 97 08/06 1630 54 39 98 08/06 1615 49 18 98 08/06 1600 61 27 98 08/06 1545 52 16 98 08/06 1530 52 27 98 08/06 1516 53 19 104/53 73 98 08/06 1515 51 17 08/06 1500 55 37 99 08/06 1445 52 22 98 08/06 1431 64 19 149/67 94 98 08/06 1430 74 31 98 08/06 1415 53 18 97 08/06 1400 49 15 110/60 79 95 08/06 1200 36.8 52 20 144/77 99 99 08/06 0816 62 16 97 08/06 0815 59 16 96 08/06 0801 61 32 147/66 95 97 08/06 0800 36.7 58 18 145/66 92 99 08/06 0800 60 18 98 08/06 0745 58 37 98 08/06 0731 57 32 178/77 111 96 08/06 0730 58 44 96 08/06 0715 59 20 99 08/06 0701 64 21 154/71 102 98 08/06 0700 58 13 97 08/06 0638 52 21 170/74 107 99 08/06 0600 59 34 160/84 112 97 08/06 0530 52 157/69 99 98 08/06 0501 53 150/68 98 97 08/06 0441 47 12 159/79 109 98 08/06 0401 47 13 149/65 94 95 08/06 0400 36.3 08/06 0331 59 16 147/69 99 96 08/06 0301 46 14 153/67 96 95 08/06 0231 47 16 166/79 114 97 08/06 0200 50 18 132/60 87 94 08/06 0131 52 13 115/62 83 97 08/06 0101 46 19 146/68 98 94 08/06 0031 47 15 144/68 98 97 08/06 0001 60 20 170/77 110 99 08/06 0000 36.2 24 hour I O ending at 0700: 08/06 0700 08/05 1900 Intake Total 1100.00 1176.00 Output Total 1850 1150 Balance -750.00 26.00 Intake, IV 1100.00 600.00 Intake, Oral 576 Number 1 Bowel Movements Output, Urine 1850 1150 Patient 79.832 kg Weight Weight Bed scale Measurement Method PATIENT WEIGHT: Weight (lb): 175 Weight (oz): 15.99 Weight (kg): 79.832 Medications: Active Meds + DC'd Last 24 Hrs Famotidine (PEPCID) 20 MG DAILY PO Amlodipine Besylate (NORVASC) 5 MG BEDTIME PO Atorvastatin Calcium (LIPITOR) 40 MG DAILY 1700 PO Enoxaparin Sodium (lovENOX) 40 MG DAILY SUBQ Clopidogrel Bisulfate (Plavix) 75 MG DAILY PO Isosorbide Mononitrate (IMDUR) 30 MG DAILY PO Losartan Potassium (COZAAR) 50 MG DAILY PO Perflutren Lipid Microsphere (DEFINITY) 2 ML ONCE PRN IV (CKD) Dextrose (GLUCOSE) 4 GM ASDIR PRN PO Dextrose/Water (DEXTROSE 10% IN WATER 250 ML) 250 ML ASDIR IV Glucagon (GLUCAGON) 1 MG ASDIR PRN IM Donepezil HCl (ARICEPT) 10 MG DAILY PO Duloxetine HCl (CYMBALTA) 60 MG DAILY PO Tamsulosin HCl (FLOMAX) 0.4 MG DAILY PO Gabapentin (NEURONTIN) 900 MG Q8HR PO Aripiprazole (ABILIFY) 10 MG BEDTIME PO Melatonin (Melatonin) 5 MG BEDTIME PRN PRN PO Memantine (NAMENDA) 10 MG BID PO Mupirocin (BACTROBAN) 1 APPLIC BID NASAL Polyethylene Glycol (MIRALAX) 17 GM DAILY PRN PRN PO Magnesium Oxide (MAG-OX 400) 400 MG Q8H PRN PRN PO Magnesium Sulfate (MAGNESIUM SULFATE 2 G IN SWFI 50 ML) 50 ML ASDIR PRN IV Magnesium Sulfate (MAGNESIUM SULFATE 2 G IN SWFI 50 ML) 50 ML Q2H PRN PRN IV Phosphorus (K-PHOS NEUTRAL) 500 MG Q4H PRN PRN PO Phosphorus (K-PHOS NEUTRAL) 500 MG Q4H PRN PRN PO Potassium Chloride (POTASSIUM CHLORIDE 10 MEQ/SWFI 50 ML) 50 ML ASDIR PRN IV Potassium Chloride (KCL 20 MEQ/SWFI 100 ML) 100 ML ASDIR PRN IV Potassium Chloride (KCL 20 MEQ/SWFI 100 ML) 100 ML ASDIR PRN IV Potassium Chloride (KCL 20 MEQ/SWFI 100 ML) 100 ML ASDIR PRN IV Potassium Chloride (K-DUR 20 mEq) 20 MEQ ASDIR PRN PO Potassium Chloride (K-DUR 20 mEq) 20 MEQ ASDIR PRN PO Potassium Phosphate (POTASSIUM PHOSPHATE) 20 MMOL ASDIR PRN IV Sodium Chloride (SODIUM CHLORIDE 0.9%) 250 ML Potassium Phosphate (POTASSIUM PHOSPHATE) 30 MMOL ASDIR PRN IV Sodium Chloride (SODIUM CHLORIDE 0.9%) 250 ML Sodium Biphosphate (SODIUM PHOSPHATE) 20 MMOL ASDIR PRN IV Sodium Chloride (SODIUM CHLORIDE 0.9%) 250 ML Sodium Biphosphate (SODIUM PHOSPHATE) 30 MMOL ASDIR PRN IV Sodium Chloride (SODIUM CHLORIDE 0.9%) 250 ML Sodium Phosphate (SODIUM PHOS 15 MMOL/ NS 250ML) 250 ML ASDIR PRN IV Undefined Medication (POTASSIUM PHOS 15 MMOL/ NS 250ML) 250 ML ASDIR PRN IV Insulin Human Lispro (HUMALOG) 0 Q6H SUBQ Dietitian nutrition assessment The data set between the solid lines has been imported from the dietitian's assessment. ___ BMI Calculated: 26.8 Nutrition related diagnosis: Nutrition diagnosis details: Nutrition problem: Nutrition etiology: Nutrition signs and symptoms: Nutrition prescription: Dietitian name: Assessment completed: ___ Free Text Obj Notes Free Text Obj Notes: HEENT:atraumatic CVS: S1-S2 audible Resp: Normal vesicular breathing Neuro: Right upper extremity 5/5 Right lower extremity 4 /5 at baseline Left upper extremity 4/5 at baseline Left lower extremity 4/5 at baseline Patient reports currently neurological status seems to be at baseline No facial droop noted Diagnosis, Assessment Plan Free Text DxA P Notes Free text DxA P notes: #Syncope with jerking movement likely secondary to seizure versus cardiogenic syncope #Past medical history of CAD #Bifascicular Block #Post TNK for possible stroke ruled out Case discussed with Neurology about subclavian steal syndrome. Neurologist stated less likely due to CTA Head and Neck showing no significant occlusion TNK protocol CT head 24 hours later Statin Clop Home BP meds to be restarted gradually patient is normotensive Neurochecks Q1h Check A1c lipid panel Follow CTH MRI brain Echo SCDs Hydration Lispro sliding scale Blood sugar control:, Blood glucose monitoring every 6 hours Dysphagia screen Carb Consistent diet PT OT consult Neurology consulted will appreciate input home meds restarted Telemonitoring Echo reviewed Patient to benefit from EP eval. EP eval in AM and DC to [facility] Code full Bedrest Seizure, aspiration, fall precautions at 0007 Addendum 1: 08/07/24 0008 by Enzo Jauregui MD Correction Bi fascicular block on EKG evaluated by Cardiology Correction EP evaluation to be considered if deemed necessary based on Telemetry monitoring Recommended Tele monitoring before DC in AM Patient to follow Cardiology OP for Holter monitor placement at 0013 RPT #: [id number] END OF REPORT [facility] 2024-08-05 19:58:00 [facility]) Neurology Consultation Note REPORT#:[id number] REPORT STATUS: Signed REPORT INITIALIZATION DATE:08/05/24 TIME:1957 PATIENT: BOB ABBOTT UNIT #: [id number] ROOM/BED: [id number] : 59 AGE: 64 SEX: M ATTEND: Enzo Jauregui MD ADM AUTHOR: Mercedes Ye MD REPT SERVICE DT/TIME: 08/05/24 1245 * ALL edits or amendments must be made on the electronic/computer document * History of Present Illness HPI Reason for consult: Code Stroke, status post treatment with intravenous thrombolytics Chief complaint: Code Stroke HPI: Mr. Abbott is a 64 y.o. man with past medical history significant for hypertension, hyperlipidemia/dyslipidemia, diabetes mellitus type II, coronary artery disease, and multiple previous transient ischemic attacks admitted to [facility] on 08/04/2024 as a Code Stroke. The medical history is obtained from the patient as well as review of the electronic medical record. The patient was in his usual state of health until approximately 1320 on the afternoon of admission. At that time, Mr. Abbott experienced a squeezing sensation in the epigastric region, then lost consciousness, falling to the floor from a seated position. It is unclear how long the patient was unconscious. There was no witnessed tonic or tonic-clonic activity, tongue- biting, bladder/bowel incontinece, or foaming saliva/drooling witnessed while he was unconscious. When he regained consciousness, Mr. Abbott was experiencing blurred vision affecting the left eye, dysarthria, left hemiparesis (face, arm, leg), numbness of the left hand, and dizziness which is further described as a lightheaded sensation. Emergency Medical Services were notified, and the patient was transported via ambulance to the Emergency Center at [facility] for further evaluation of his symptoms. On arrival, Mr. Abbott was afebrile with a blood pressure of 123/58 mmHg and a pulse of 55 beats per minute. A NIHSS score of 6 was documented with one point given for facial palsy, one point given for drift of the left arm, one point given for drift of the right leg, one point given for drift of the left leg, one point given for diminished sensation, and one point given for dysarthria. A CT of the brain without contrast did not reveal evidence of recent large territorial ischemia or hemorrhage. The CTA of the brain and neck with contrast did not revealhemodynamically significant stenosis(es) of the intracranial or extracranial blood vessels. Mr. Abbott had no known contraindications to treatment with intravenous thrombolytics, so tenecteplase was administered. The patient was then admitted to the Intensive Care Unit for close monitoring as well as further evaluation and treatment of his symptoms. The patient reports his speech improved following administration of intravenous tenecteplase. However, his other symptoms are reportedly unchanged. History - Adult longitudinal Past medical history: Reports: Coronary artery disease, Dementia, Diabetes mellitus (Comp. by peripheral neuropathy), Hypertension, Kidney disease/stones (Nephrolithiasis), Transient ischemic attack, Dyslipidemia. Past surgical history: Reports: PCI (Stent(s) placed), Thyroidectomy (Left thyroid lobectomy). Family history: Reports: Diabetes, Heart disease (Maternal GF-, [place]), Hypertension. Alcohol use: Alcohol use (Social alcohol consumption) Drug use: [employer] cheo Smoking status for patients 13 years old or older: Current every day smoker Other social history: Retired, Local resident, Good social support Medications: Home Medications: Medication Dose/Rte/Freq Days Qty Entered Last Max Daily Dose Reviewed CLOPIDOGREL (PLAVIX) 75 MG PO DAILY 08/04/24 08/04/24 Strength: 75 MG TAB 1623 1629 amLODIPine (NORVASC) 5 MG PO DAILY 08/04/24 08/04/24 Strength: 5 MG TAB 1623 162 ISOSORBIDE 30 MG PO DAILY 08/04/24 08/04/24 MONONITRATE SR 1624 1629 (IMDUR) Strength: 30 MG TAB.SR.24H TAMSULOSIN ER (FLOMAX) 0.4 MG PO DAILY 08/04/24 08/04/24 Strength: 0.4 MG 1624 1629 CAP.SR.24H ATORVASTATIN (LIPITOR) 40 MG PO DAILY 08/04/24 08/04/24 Strength: 40 MG TAB [address] (CYMBALTA) 60 MG PO DAILY 08/04/24 08/04/24 Strength: 60 MG CAP.DR 1625 162 DONEPEZIL (ARICEPT) 10 MG PO DAILY 08/04/24 08/04/24 Strength: 10 MG TAB 1626 1629 CYANOCOBALAMIN 1,000 MCG PO DAILY 08/04/24 08/04/24 (VITAMIN B-12) 1626 1629 Strength: 1,000 MCG TAB ERGOCALCIFEROL 50,000 UNITS PO 08/04/24 08/04/24 (VITAMIN D2) Q30D 1627 1629 Strength: 1,250 MCG (50,000 UNIT) CAP LOSARTAN (COZAAR) 50 MG PO DAILY 08/04/24 08/04/24 Strength: 50 MG TAB 1627 1629 MEMANTINE 10 MG PO BID 08/04/24 08/04/24 Strength: 10 MG TAB 1628 1629 GABAPENTIN (NEURONTIN) 900 MG PO TID 08/04/24 08/05/24 Strength: 300 MG CAP 1623 0611 ARIPiprazole (ABILIFY) 10 MG PO BEDTIME 08/04/24 08/05/24 Strength: 5 MG TAB 1625 0609 metFORMIN 500 MG PO BID 08/04/24 08/05/24 Strength: 500 MG TAB 1942 0609 Current Hospital Medications: fs Category Unknown Sig/Chen Start time Last Medication Dose Route Stop Time Status Admin Melatonin 5 MG BEDTIME PRN PRN 08/04 2100 AC (Melatonin) PO 09/03 2059 Autonomic Drugs Sig/Chen Start time Last Medication Dose Route Stop Time Status Admin Donepezil HCl 10 MG DAILY 08/05 900 AC 08/05 (ARICEPT) PO 09/04 08 0831 Tamsulosin HCl 0.4 MG DAILY 08/05 900 AC 08/05 (FLOMAX) PO 09/04 0859 0831 Blood Formation,Coagulation Sig/Chen Start time Last Medication Dose Route Stop Time Status Admin Clopidogrel Bisulfate 75 MG DAILY 08/06 900 AC (Plavix) PO 09/05 0859 Cardiovascular Drugs Sig/Chen Start time Last Medication Dose Route Stop Time Status Admin Atorvastatin Calcium 80 MG DAILY 1700 08/05 1700 AC 08/05 (LIPITOR) PO 09/04 1659 1602 Central Nervous System Agents Sig/Chen Start time Last Medication Dose Route Stop Time Status Admin Duloxetine HCl 60 MG DAILY 08/05 09 AC 08/05 (CYMBALTA) PO 09/04 0859 0831 Gabapentin 900 MG Q8HR 08/040 AC 11/10 (NEURONTIN) PO 09/04 0859 1422 Aripiprazole 10 MG BEDTIME 08/04 2100 AC 08/04 (ABILIFY) PO 09/03 2059 214 Memantine 10 MG BID 08/04 2100 AC 08/05 (NAMENDA) PO 09/03 2059 0831 Magnesium Sulfate 50 ML ASDIR PRN 08/04 1945 AC (MAGNESIUM SULFATE 2 IV 09/03 1944 G IN SWFI 50 ML) Magnesium Sulfate 50 ML Q2H PRN PRN 08/04 1945 AC (MAGNESIUM SULFATE 2 IV 09/03 1944 G IN SWFI 50 ML) Diagnostic Agents Sig/Chen Start time Last Medication Dose Route Stop Time Status Admin Perflutren Lipid 2 ML ONCE PRN 08/05 1330 CKD Microsphere IV (DEFINITY) Electrolytic, Caloric, And Chandrika Sig/Chen Start time Last Medication Dose Route Stop Time Status Admin Dextrose 4 GM ASDIR PRN 08/05 915 AC (GLUCOSE) PO 09/04 914 Dextrose/Water 250 ML ASDIR 08/05 915 AC (DEXTROSE 10% IN IV 09/04 914 WATER 250 ML) Sodium Chloride 1,000 ML .Q10H 08/04 2000 DC 08/05 (0.9% Sodium IV 08/05 1959 1559 Chloride) Phosphorus 500 MG Q4H PRN PRN 08/04 1945 AC (K-PHOS NEUTRAL) PO 09/03 1944 Phosphorus 500 MG Q4H PRN PRN 08/04 1945 AC (K-PHOS NEUTRAL) PO 09/03 1944 Potassium Chloride 50 ML ASDIR PRN 08/04 1945 AC (POTASSIUM CHLORIDE IV 09/03 1944 10 MEQ/SWFI 50 ML) Potassium Chloride 100 ML ASDIR PRN 08/04 1945 AC (KCL 20 MEQ/SWFI 100 IV 09/03 1944 ML) Potassium Chloride 100 ML ASDIR PRN 08/04 1945 AC (KCL 20 MEQ/SWFI 100 IV 09/03 1944 ML) Potassium Chloride 100 ML ASDIR PRN 08/04 1945 AC (KCL 20 MEQ/SWFI 100 IV 09/03 1944 ML) Potassium Chloride 20 MEQ ASDIR PRN 08/04 1945 AC (K-DUR 20 mEq) PO 09/03 1944 Potassium Chloride 20 MEQ ASDIR PRN 08/04 1945 AC (K-DUR 20 mEq) PO 09/03 1944 Potassium Phosphate 20 MMOL ASDIR PRN 08/04 1945 AC (POTASSIUM PHOSPHATE) IV 09/03 1944 Sodium Chloride 250 ML (SODIUM CHLORIDE 0.9%) Potassium Phosphate 30 MMOL ASDIR PRN 08/04 1945 AC (POTASSIUM PHOSPHATE) IV 09/03 1944 Sodium Chloride 250 ML (SODIUM CHLORIDE 0.9%) Sodium Biphosphate 20 MMOL ASDIR PRN 08/04 1945 AC (SODIUM PHOSPHATE) IV 09/03 1944 Sodium Chloride 250 ML (SODIUM CHLORIDE 0.9%) Sodium Biphosphate 30 MMOL ASDIR PRN 08/04 1945 AC (SODIUM PHOSPHATE) IV 09/03 1944 Sodium Chloride 250 ML (SODIUM CHLORIDE 0.9%) Sodium Phosphate 250 ML ASDIR PRN 08/04 1945 AC (SODIUM PHOS 15 MMOL/ IV 09/03 1944 NS 250ML) Undefined Medication 250 ML ASDIR PRN 08/04 1945 AC (POTASSIUM PHOS 15 IV 09/03 1944 MMOL/ NS 250ML) Gastrointestinal Drugs Sig/Chen Start time Last Medication Dose Route Stop Time Status Admin Polyethylene Glycol 17 GM DAILY PRN PRN 08/04 2100 AC (MIRALAX) PO 09/03 2059 Magnesium Oxide 400 MG Q8H PRN PRN 08/04 1945 AC (MAG-OX 400) PO 09/03 1944 Hormones And Synthetic Substit Sig/Chen Start time Last Medication Dose Route Stop Time Status Admin Glucagon 1 MG ASDIR PRN 08/05 915 AC (GLUCAGON) IM 09/04 914 Insulin Human Lispro 0 Q6H 08/04 1845 AC (HUMALOG) SUBQ 09/03 1844 Skin And Mucous Membrane Agent Sig/Chen Start time Last Medication Dose Route Stop Time Status Admin Mupirocin 1 APPLIC BID 08/04 2100 AC 08/05 (BACTROBAN) NASAL 08/09 0901 0832 Allergies: Coded Allergies: No Known Allergies (08/04/24) Review of Systems Constitutional: Denies: chills, fatigue, fever, generalized weakness, lethargy, malaise, recent wt loss. Skin: Denies: abrasion, bruising, contusion, diaphoresis, ecchymosis, itching, laceration, rash, swelling. Allergy/Immun: Denies: allergic reaction, anaphylaxis, hives, itching, rhinorrhea, sneezing. Eyes: Reports: visual loss/blurred (Left eye). Denies: redness, discharge, itching, diplopia, eye pain, photophobia, swelling. ENT: Denies: earache, hearing loss, nasal congestion, sore throat, voice change. Respiratory: Denies: ORTIZ (dyspnea on exertion), non productive cough, productive cough ( sputum), SOB, wheezing. Cardiovascular: Denies: chest pain, edema, palpitations. GI: Denies: abdominal pain, anorexia, constipation, diarrhea, dysphagia, GERD, nausea, vomiting. Musculoskeletal: Arthritis: Denies: left upper, left lower, right upper, right lower, bilateral. Extremity pain: Denies: left upper, left lower, right upper, right lower, bilateral. Extremity swelling: Denies: left upper, left lower, right upper, right lower, bilateral. Joint pain: Denies: left upper, left lower, right upper, right lower, bilateral. Joint swelling: Denies: left upper, left lower, right upper, right lower, bilateral. Myalgias: Denies: left upper, left lower, right upper, right lower, bilateral. Other musculoskeletal: Denies: lumbar pain, neck pain, thoracic pain. Heme: Denies: bleeding, bruising. Endocrine: Denies: cold intolerance, heat intolerance, polydipsia, polyphagia, polyuria, weight gain, weight loss. Neuro: Reports: change in LOC, confusion (Chronic, dementia), dizziness, focal weakness , lightheaded, numbness, slurred speech, syncope, vision change, weakness. Denies: bladder dysfunction, bowel dysfunction, gait problem, headache, seizure, spinning sensation, unable to speak. Psych: Reports: confusion (Chronic, dementia). Denies: agitation, anxiety, auditory hallucination, change in mental status, depression, homicidal ideation, suicidal ideation, visual hallucination. Objective General VS: Last Documented: Result Date Time Pulse Ox 99 08/05 1700 B/P 146/71 08/05 1700 B/P Mean 102 08/05 1700 Pulse 55 08/05 1700 Resp 19 08/05 170 O2 Delivery Nasal cannula 08/05 1200 Temp 97.4 08/05 0700 PATIENT WEIGHT: Weight (lb): 175 Weight (oz): 15.99 Weight (kg): 79.832 Medications Current Home Medications CLOPIDOGREL (PLAVIX) 75 MG PO DAILY amLODIPine (NORVASC) 5 MG PO DAILY ISOSORBIDE MONONITRATE SR (IMDUR) 30 MG PO DAILY TAMSULOSIN ER (FLOMAX) 0.4 MG PO DAILY ATORVASTATIN (LIPITOR) 40 MG PO DAILY DULoxetine DR (CYMBALTA) 60 MG PO DAILY DONEPEZIL (ARICEPT) 10 MG PO DAILY CYANOCOBALAMIN (VITAMIN B-12) 1,000 MCG PO DAILY ERGOCALCIFEROL (VITAMIN D2) 50,000 UNITS PO Q30D LOSARTAN (COZAAR) 50 MG PO DAILY MEMANTINE 10 MG PO BID GABAPENTIN (NEURONTIN) 900 MG PO TID ARIPiprazole (ABILIFY) 10 MG PO BEDTIME metFORMIN 500 MG PO BID Active Meds + DC'd Last 24 Hrs Clopidogrel Bisulfate (Plavix) 75 MG DAILY PO Atorvastatin Calcium (LIPITOR) 80 MG DAILY 1700 PO Perflutren Lipid Microsphere (DEFINITY) 2 ML ONCE PRN IV (CKD) Dextrose (GLUCOSE) 4 GM ASDIR PRN PO Dextrose/Water (DEXTROSE 10% IN WATER 250 ML) 250 ML ASDIR IV Glucagon (GLUCAGON) 1 MG ASDIR PRN IM Donepezil HCl (ARICEPT) 10 MG DAILY PO Duloxetine HCl (CYMBALTA) 60 MG DAILY PO Tamsulosin HCl (FLOMAX) 0.4 MG DAILY PO Gabapentin (NEURONTIN) 900 MG Q8HR PO Aripiprazole (ABILIFY) 10 MG BEDTIME PO Melatonin (Melatonin) 5 MG BEDTIME PRN PRN PO Memantine (NAMENDA) 10 MG BID PO Mupirocin (BACTROBAN) 1 APPLIC BID NASAL Polyethylene Glycol (MIRALAX) 17 GM DAILY PRN PRN PO Sodium Chloride (0.9% Sodium Chloride) 1,000 ML .Q10H IV (DC) Magnesium Oxide (MAG-OX 400) 400 MG Q8H PRN PRN PO Magnesium Sulfate (MAGNESIUM SULFATE 2 G IN SWFI 50 ML) 50 ML ASDIR PRN IV Magnesium Sulfate (MAGNESIUM SULFATE 2 G IN SWFI 50 ML) 50 ML Q2H PRN PRN IV Phosphorus (K-PHOS NEUTRAL) 500 MG Q4H PRN PRN PO Phosphorus (K-PHOS NEUTRAL) 500 MG Q4H PRN PRN PO Potassium Chloride (POTASSIUM CHLORIDE 10 MEQ/SWFI 50 ML) 50 ML ASDIR PRN IV Potassium Chloride (KCL 20 MEQ/SWFI 100 ML) 100 ML ASDIR PRN IV Potassium Chloride (KCL 20 MEQ/SWFI 100 ML) 100 ML ASDIR PRN IV Potassium Chloride (KCL 20 MEQ/SWFI 100 ML) 100 ML ASDIR PRN IV Potassium Chloride (K-DUR 20 mEq) 20 MEQ ASDIR PRN PO Potassium Chloride (K-DUR 20 mEq) 20 MEQ ASDIR PRN PO Potassium Phosphate (POTASSIUM PHOSPHATE) 20 MMOL ASDIR PRN IV Sodium Chloride (SODIUM CHLORIDE 0.9%) 250 ML Potassium Phosphate (POTASSIUM PHOSPHATE) 30 MMOL ASDIR PRN IV Sodium Chloride (SODIUM CHLORIDE 0.9%) 250 ML Sodium Biphosphate (SODIUM PHOSPHATE) 20 MMOL ASDIR PRN IV Sodium Chloride (SODIUM CHLORIDE 0.9%) 250 ML Sodium Biphosphate (SODIUM PHOSPHATE) 30 MMOL ASDIR PRN IV Sodium Chloride (SODIUM CHLORIDE 0.9%) 250 ML Sodium Phosphate (SODIUM PHOS 15 MMOL/ NS 250ML) 250 ML ASDIR PRN IV Undefined Medication (POTASSIUM PHOS 15 MMOL/ NS 250ML) 250 ML ASDIR PRN IV Insulin Human Lispro (HUMALOG) 0 Q6H SUBQ Physical Exam General appearance: alert, awake, no acute distress Head/Eyes: atraumatic, clear cornea, normal conjunctiva/sclera, normocephalic ENT: moist mucosal membranes Neck: full range of motion, non-tender, supple/no meningismus, no bruit / NL carotids, no masses or swelling Cardiovascular: irregular rate and rhythm (Bradycardic), normal heart sounds, no murmur Respiratory: aerating well, clear to auscultation, no distress Extremities: moves all, normal inspection, normal temperature, pulses present, no edema Musculoskeletal: full range of motion, normal inspection Skin: dry, intact, normal color, normal temperature Speech Speech: normal Mental Status Orientation: Yes: to person, to situation. LOC: alert Mental status: normal Cognitive Function Cognitive function: poor recall Cranial Nerves Cranial nerves: Normal: II, III, IV, V, , VIII, IX, X, XI, XII. Abnormal: VII (V. mild L central fac. wknss.). Sensory Exam Sensory: Abnormal: pin prick (Mildly decr. L hemibody), light touch (Mildly decr. L hemibody). Motor Testing Motor testing 1: Normal: bulk. Abnormal: tone, fine movements, strength. Motor Testing 2: No asterixis, No dystonia, No fasciculation, No myoclonus, No tremor Upper strength detail: R bicep (4+/5), L bicep (4/5), R tricep (4/5), L tricep ( 4-/5), R wrist extensor (4/5), L wrist extensor (4-/5), R wrist flexor (4+/5), L wrist flexor (4/5), R intrinsics hand (4/5), L intrinsics hand (4-/5), R thenar (4/5), L thenar (4-/5), Positive drift of both arms, left greater than right Lower strength detail: R illiopsoas (4-/5), L illiopsoas (4-/5), R quadriceps (4 /5), L quadriceps (4/5), R hamstring (4-/5), L hamstring (4-/5), R gastroc (4/5) , L gastroc (4/5), R anterior tib (4-/5), L anterior tib (4-/5), R toe extensors (4/5), L toe extensors (4/5), R toe flexors (4-/5), L toe flexors (4-/5), Positive drift of both legs with both legs hitting the bed Cerebellar Test Cerebellar test: Normal R finger/nose/finger, Abnormal L finger/nose/finger, Normal R heel/knee/ johnson, Normal L heel/knee/johnson Nystagmus: absent Reflexes Tendon reflexes: 1+: R Bicep, L Bicep, R Tricep, L Tricep, R brachioradialis, L brachioradialis, R achilles (Trace), L achilles (Trace). 2+: R Patella, L Patella. Plantar reflexes: Down: Right, Left. Gait Gait: Deferred Results Findings/Data: Laboratory Tests 08/05 08/05 08/05 08/05 08/05 1707 1113 0630 0256 0256 Chemistry POC Glucose (70 - 110 mg/dL) 158 H 155 H 155 H Hemoglobin A1c (4.8 - 6.0 % A1C) 6.5 H Estim Average Glucose (MG/DLest) 140 Phosphorus (2.5 - 4.9 MG/DL) 3.4 Magnesium (1.8 - 2.4 MG/DL) 2.0 Troponin I High Sens (0 - 78 ng/L) 12.7 08/05 Chemistry Sodium (136 - 145 mmol/L) 141 Potassium (3.4 - 5.0 mmol/L) 3.6 Chloride (98 - 107 mmol/L) 104 Carbon Dioxide (21 - 32 mmol/L) 29 Anion Gap (4 - 15 GAP calc) 8 BUN (7 - 18 MG/DL) 11 Creatinine (0.6 - 1.0 MG/DL) 1.0 Glomerular Filtr Rate (>60 estGFR) >=60 max estimate Glucose (70 - 110 MG/DL) 229 H POC Glucose (70 - 110 mg/dL) 170 H Lactic Acid (0.4 - 1.9 mmol/L) 0.9 Calcium (8.5 - 10.1 MG/DL) 8.9 Phosphorus (2.5 - 4.9 MG/DL) 4.0 Magnesium (1.8 - 2.4 MG/DL) 1.9 Total Creatine Kinase (21 - 215 41 Unit/L) Troponin I High Sens (0 - 78 ng/L) 12.0 Triglycerides (0 - 150 MG/DL) 191 H Cholesterol (133 - 200 MG/DL) 80 L LDL Cholesterol Measurd (0 - 129 39 MG/DL) Non-HDL Cholesterol (<130 mg/dL) 44 HDL Cholesterol (60 MG/DL) 36 L LDL/HDL Ratio (1.48 - 3.22 Avg Ratio) 1.08 L Cholesterol/HDL Ratio (0 RATIO) 2.22 Laboratory Tests 08/05 256 Hematology WBC (3.5 - 11.0 K/mm3) 8.2 RBC (4.70 - 6.10 M/mm3) 3.71 L Hgb (12.3 - 15.9 G/DL) 11.6 L Hct (35.8 - 46.7 %) 33.9 L MCV (86.3 - 98.9 Fl) 91.4 MCH (28.9 - 34.4 pg) 31.3 MCHC (32.1 - 34.5 G/DL) 34.2 RDW (11.5 - 14.5 SD) 12.6 Plt Count (150 - 450 K/mm3) 208 MPV (7.0 - 9.6 fL) 11.00 H Neut % (Auto) (40 - 76 %) 61.5 Lymph % (Auto) (20.5 - 51.1 %) 29.4 [place] % (Auto) (1.7 - 9.3 %) 5.5 Eos % (Auto) (0.0 - 6.0 %) 2.8 Baso % (Auto) (0.0 - 2.0 %) 0.6 Neut # (Auto) (1.8 - 7.6 K/mm3) 5.0 Lymph # (Auto) (0.6 - 3.0 K/mm3) 2.4 [place] # (Auto) (0.2 - 1.5 K/mm3) 0.5 Eos # (Auto) (0.0 - 0.4 K/mm3) 0.2 Baso # (Auto) (0.0 - 0.2 K/mm3) 0.1 Abs Immat Gran (auto) (0.00 - 0.03 x10 3/uL) 0.02 Immature Gran % (0.0 - 5.0 %) 0.2 Nucleated RBC % (0.0 - 1.0 /100WBC%) 0.0 Laboratory Tests 08/04 2153 Toxicology Urine Opiates Screen (<300 NG/ML SCcutoff) NEGATIVE Urine Methadone Screen (<300 NG/ML SCcutoff) NEGATIVE Urine Barbiturates (<200 NG/ML SCcutoff) NEGATIVE Ur Phencyclidine Scrn (<25 NG/ML SCcutoff) NEGATIVE Ur Amphetamines Screen (<1000 NG/ML SCcutoff) NEGATIVE U Benzodiazepines Scrn (<200 NG/ML SCcutoff) NEGATIVE Urine Cocaine Screen (<300 NG/ML SCcutoff) NEGATIVE Urine Cannabinoids (<50 NG/ML SCcutoff) POSITIVE H Microbiology Date/Time Procedure - Status Source Growth 08/04 2045 MRSA Screen - COMP NASAL Radiology Data: Recent Impressions: MAGNETIC RESONANCE IMAGING - MRI BRAIN W/O CONTRAST 08/05 1800 Report Impression - Status: SIGNED Entered: 08/05/20242000 IMPRESSION: 1. No acute intracranial abnormality. 2. 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 Impression By: LeylaCKVirginia Desouza M.D CAT SCAN - CT HEAD/BRAIN W/O CONT 08/05 1850 Report Impression - Status: SIGNED Entered: 08/05/20242001 IMPRESSION: No acute intracranial abnormality. Impression By: Jake Desouza M.D Results: labs reviewed, vital signs reviewed, vital signs stable, CT results reviewed, MRI results reviewed, current med profile rev'd, CTA brain, neck reviewed Diagnosis, Assessment Plan Problem List/A P: 1. Syncope and collapse 2. Facial weakness 3. Weakness of both arms 4. Weakness of both legs 5. Numbness 6. Ataxia Free Text DxA P Notes: Mr. Abbott is a 64 y.o. man with past medical history as detailed admitted to [facility] as a Code Stroke, status post treatment with intravenous thrombolytics. The findings from the patient's neurological examination are detailed above. His laboratory data and other diagnostic studies were reviewed and are documented above. Neurological: In my opinion, Mr. Abbott did not experience a stroke on 2023. His vascular risk factors are at goal/well controlled. The patient was normotensive on admission; if he was experiencing a stroke, his blood pressure should have been markedly elevated. Lastly, the patient reports his neurological deficits persist, but the MRI of the brain without contrast did not reveal evidence of a recent ischemic stroke. Recommendations are as follows- 1. Teatment with Plavix 75 mg by mouth daily for stroke prophylaxis will be resumed. 2. The patient's blood pressures may be gradually normalized with a goal blood pressure of less than 140/90 mmHg. The patient's blood pressures have normalized. Continue treatment with the current antihypertensive medication(s). Monitor vital signs per unit protocol and add/adjust antihypertensive medication(s) to achieve the patient's goal blood pressure. 3. The patient's goal total cholesterol is less than 200 with a LDL of less than 70. The patient's total cholesterol was 80 with a LDL of 39. Treatment with atorvastatin 40 mg by mouth at bedtime daily was continued. 4. The patient's goal hemoglobin A1C is less than 7.0. The patient's hemoglobin A1C was 6.5. Tight glycemic control is recommended while the patient is hospitalized. Continue treatment with SSI per protocol. 5. PT, OT, and ST as recommended. 6. Tobacco cessation counseling was provided to the patient. at 2041 RPT #: [id number] END OF REPORT [facility] 2024-08-05 15:01:00 [facility] ([facility]) Pulmonary Consultation Note REPORT#:[id number] REPORT STATUS: Signed REPORT INITIALIZATION DATE:08/05/24 TIME:1501 PATIENT: BOB ABBOTT UNIT #: [id number] ROOM/BED: [place] [id number] : 59 AGE: 64 SEX: M ATTEND: Enzo Jauregui MD ADM AUTHOR: Jere De La Rosa MD REPT SERVICE DT/TIME: 08/05/24 1501 * ALL edits or amendments must be made on the electronic/computer document * History of Present Illness HPI Reason for consult: Stroke Chief complaint: Syncope and left-sided weakness and slurred speech HPI: 64-year-old male with known diabetes and cardiac stent and previous TIA and severe neuropathy who was getting a haircut and the daniels noticed that he passed out and he called his . He came back with a certain amount of stimulation and he was noted to have heavily slurred speech and his left side was weak. They also felt that he may have right side facial droop. This has resolved since then. He was given TNK upon arrival in the left side weakness has improved. The patient and his feel that this is back to his baseline. He apparently has severe neuropathy that worsened after he had COVID in 2020 and he needs to use a rollator to get around. The symptoms you are describing above are on top of the existing neurologic weaknesses and may present a confounding picture specially that he may have had syncope where hypoperfusion may also exacerbate existing deficits. At this time he has no headaches. He has no fever. He has no chest pain and no shortness of breath. History - Adult longitudinal Additional medical history: Severe neuropathy where he has to use a rollator. This became worse after he had COVID in 2020. At that time he was hospitalized for just 2 days and it did not affect his respiratory system. Diabetes mellitus PTSD PCI to the LAD 7 years ago TIA 1.5 years ago Smoking status for patients 13 years old or older: Current every day smoker Date last smoked: 08/04/24 Years smoked: 53 Pack years: 0 Medications: Home Medications: Medication Dose/Rte/Freq Days Qty Entered Last Max Daily Dose Reviewed CLOPIDOGREL (PLAVIX) 75 MG PO DAILY 08/04/24 08/04/24 Strength: 75 MG TAB 1623 1629 amLODIPine (NORVASC) 5 MG PO DAILY 08/04/24 08/04/24 Strength: 5 MG TAB 1623 1629 ISOSORBIDE 30 MG PO DAILY 08/04/24 08/04/24 MONONITRATE SR 1624 1629 (IMDUR) Strength: 30 MG TAB.SR.24H TAMSULOSIN ER (FLOMAX) 0.4 MG PO DAILY 08/04/24 08/04/24 Strength: 0.4 MG 1624 1629 CAP.SR.24H ATORVASTATIN (LIPITOR) 40 MG PO DAILY 08/04/24 08/04/24 Strength: 40 MG TAB [address] (CYMBALTA) 60 MG PO DAILY 08/04/24 08/04/24 Strength: 60 MG CAP.DR 1625 1629 DONEPEZIL (ARICEPT) 10 MG PO DAILY 08/04/24 08/04/24 Strength: 10 MG TAB 1626 1629 CYANOCOBALAMIN 1,000 MCG PO DAILY 08/04/24 08/04/24 (VITAMIN B-12) 1626 1629 Strength: 1,000 MCG TAB ERGOCALCIFEROL 50,000 UNITS PO 08/04/24 08/04/24 (VITAMIN D2) Q30D 1627 1629 Strength: 1,250 MCG (50,000 UNIT) CAP LOSARTAN (COZAAR) 50 MG PO DAILY 08/04/24 08/04/24 Strength: 50 MG TAB 1627 1629 MEMANTINE 10 MG PO BID 08/04/24 08/04/24 Strength: 10 MG TAB 1628 1629 GABAPENTIN (NEURONTIN) 900 MG PO TID 08/04/24 08/05/24 Strength: 300 MG CAP 1623 0611 ARIPiprazole (ABILIFY) 10 MG PO BEDTIME 08/04/24 08/05/24 Strength: 5 MG TAB 1625 0609 metFORMIN 500 MG PO BID 08/04/24 08/05/24 Strength: 500 MG TAB 1942 0609 Current Hospital Medications: fs Category Unknown Sig/Chen Start time Last Medication Dose Route Stop Time Status Admin Melatonin 5 MG BEDTIME PRN PRN 08/04 2100 AC (Melatonin) PO 09/03 2059 Autonomic Drugs Sig/Chen Start time Last Medication Dose Route Stop Time Status Admin Donepezil HCl 10 MG DAILY 08/05 900 AC 08/05 (ARICEPT) PO 09/04 0859 0831 Tamsulosin HCl 0.4 MG DAILY 08/05 900 AC 08/05 (FLOMAX) PO 09/04 0859 0831 Blood Formation,Coagulation Sig/Chen Start time Last Medication Dose Route Stop Time Status Admin Tenecteplase 0 X1ED STA 08/04 1614 DC 08/04 (TNKASE) IV 08/04 161 1615 Tenecteplase 50 MG X1ED STA 08/04 1613 CAN (TNKASE) IV 08/04 1614 Cardiovascular Drugs Sig/Chen Start time Last Medication Dose Route Stop Time Status Admin Atorvastatin Calcium 80 MG DAILY 1700 08/05 170 AC (LIPITOR) PO 09/04 165 Central Nervous System Agents Sig/Chen Start time Last Medication Dose Route Stop Time Status Admin Duloxetine HCl 60 MG DAILY 08/05 900 AC 08/05 (CYMBALTA) PO 09/04 0859 0831 Gabapentin 900 MG Q8HR 08/04 2200 AC 08/05 (NEURONTIN) PO 09/04 0859 1422 Aripiprazole 10 MG BEDTIME 08/04 2100 AC 08/04 (ABILIFY) PO 09/03 2059 2143 Memantine 10 MG BID 08/04 2100 AC 08/05 (NAMENDA) PO 09/03 2059 0831 Magnesium Sulfate 50 ML ASDIR PRN 08/04 1945 AC (MAGNESIUM SULFATE 2 IV 09/034 G IN SWFI 50 ML) Magnesium Sulfate 50 ML Q2H PRN PRN 08/04 1945 AC (MAGNESIUM SULFATE 2 IV 09/034 G IN SWFI 50 ML) Diagnostic Agents Sig/Chen Start time Last Medication Dose Route Stop Time Status Admin Perflutren Lipid 2 ML ONCE PRN 08/05 1330 CKD Microsphere IV (DEFINITY) Electrolytic, Caloric, And Chandrika Sig/Chen Start time Last Medication Dose Route Stop Time Status Admin Dextrose 4 GM ASDIR PRN 08/05 0915 AC (GLUCOSE) PO 09/04 914 Dextrose/Water 250 ML ASDIR 08/05 915 AC (DEXTROSE 10% IN IV 09/04 914 WATER 250 ML) Sodium Chloride 1,000 ML .Q10H 08/04 2000 AC 08/05 (0.9% Sodium IV 08/05 1959 0637 Chloride) Phosphorus 500 MG Q4H PRN PRN 08/04 1945 AC (K-PHOS NEUTRAL) PO 09/03 1944 Phosphorus 500 MG Q4H PRN PRN 08/04 1945 AC (K-PHOS NEUTRAL) PO 09/03 1944 Potassium Chloride 50 ML ASDIR PRN 08/04 1945 AC (POTASSIUM CHLORIDE IV 09/03 1944 10 MEQ/SWFI 50 ML) Potassium Chloride 100 ML ASDIR PRN 08/04 1945 AC (KCL 20 MEQ/SWFI 100 IV 09/03 1944 ML) Potassium Chloride 100 ML ASDIR PRN 08/04 1945 AC (KCL 20 MEQ/SWFI 100 IV 09/03 1944 ML) Potassium Chloride 100 ML ASDIR PRN 08/04 1945 AC (KCL 20 MEQ/SWFI 100 IV 09/03 1944 ML) Potassium Chloride 20 MEQ ASDIR PRN 08/04 1945 AC (K-DUR 20 mEq) PO 09/03 1944 Potassium Chloride 20 MEQ ASDIR PRN 08/04 1945 AC (K-DUR 20 mEq) PO 09/03 1944 Potassium Phosphate 20 MMOL ASDIR PRN 08/04 1945 AC (POTASSIUM PHOSPHATE) IV 09/03 1944 Sodium Chloride 250 ML (SODIUM CHLORIDE 0.9%) Potassium Phosphate 30 MMOL ASDIR PRN 08/04 1945 AC (POTASSIUM PHOSPHATE) IV 09/03 1944 Sodium Chloride 250 ML (SODIUM CHLORIDE 0.9%) Sodium Biphosphate 20 MMOL ASDIR PRN 08/04 1945 AC (SODIUM PHOSPHATE) IV 09/03 1944 Sodium Chloride 250 ML (SODIUM CHLORIDE 0.9%) Sodium Biphosphate 30 MMOL ASDIR PRN 08/04 1945 AC (SODIUM PHOSPHATE) IV 09/03 1944 Sodium Chloride 250 ML (SODIUM CHLORIDE 0.9%) Sodium Phosphate 250 ML ASDIR PRN 08/04 1945 AC (SODIUM PHOS 15 MMOL/ IV 09/03 1944 NS 250ML) Undefined Medication 250 ML ASDIR PRN 08/04 1945 AC (POTASSIUM PHOS 15 IV 09/03 1944 MMOL/ NS 250ML) Gastrointestinal Drugs Sig/Chen Start time Last Medication Dose Route Stop Time Status Admin Polyethylene Glycol 17 GM DAILY PRN PRN 08/04 2100 AC (MIRALAX) PO 09/03 2059 Magnesium Oxide 400 MG Q8H PRN PRN 08/04 1945 AC (MAG-OX 400) PO 09/03 1944 Hormones And Synthetic Substit Sig/Chen Start time Last Medication Dose Route Stop Time Status Admin Glucagon 1 MG ASDIR PRN 08/05 915 AC (GLUCAGON) IM 09/04 914 Insulin Human Lispro 0 AC HS 08/04 2100 CAN (HUMALOG) SUBQ 09/03 2059 Insulin Human Lispro 0 Q6H 08/04 1845 AC (HUMALOG) SUBQ 09/03 1844 Skin And Mucous Membrane Agent Sig/Chen Start time Last Medication Dose Route Stop Time Status Admin Mupirocin 1 APPLIC BID 08/04 2100 AC 08/05 (BACTROBAN) NASAL 08/09 0901 0832 Allergies: Coded Allergies: No Known Allergies (08/04/24) Review of Systems Skin: Denies: rash. Allergy/Immun: Denies: rhinorrhea. Eyes: Denies: photophobia. ENT: Denies: throat pain. Respiratory: Denies: hemoptysis. GI: Denies: hematemesis. : Denies: hematuria. Heme: Denies: petechiae. Endocrine: Denies: polyuria. Neuro: Reports: change in LOC, dizziness, slurred speech, weakness. Psych: Denies: visual hallucination. Objective Physical Exam Vitals: Last Documented: Result Date Time O2 Delivery Nasal cannula 08/05 1200 Pulse Ox 98 08/05 1145 B/P 144/70 08/05 1145 B/P Mean 100 08/05 1145 Pulse 61 08/05 1145 Resp 22 08/05 1145 Temp 36.3 08/05 0700 General appearance: alert ENT: ENT: normal pharynx Neck: normal thyroid, no JVD Cardiovascular: normal heart sounds, regular rate rhythm Respiratory/chest: aerating well Abdomen: soft, non-tender Genitourinary: no flank pain Extremities: moves all, no edema Musculoskeletal: no muscle spasm Neuro/FLATWORK FINISHER: left hemiparesis, sensory deficit Skin: dry Lymphatics: no lymphadenopathy Psychiatry: no hallucinations Results Findings/Data: Laboratory Tests 08/05/24 0256: [Embedded Image Not Available] Laboratory Tests 08/05 08/05 08/05 08/05 1113 0630 0256 0256 Chemistry POC Glucose (70 - 110 mg/dL) 155 H 155 H Hemoglobin A1c (4.8 - 6.0 % A1C) 6.5 H Estim Average Glucose (MG/DLest) 140 Phosphorus (2.5 - 4.9 MG/DL) 3.4 Magnesium (1.8 - 2.4 MG/DL) 2.0 Troponin I High Sens (0 - 78 ng/L) 12.7 08/05 08/05 08/04 08/04 0256 0033 2044 2044 Chemistry Sodium (136 - 145 mmol/L) 141 Potassium (3.4 - 5.0 mmol/L) 3.6 Chloride (98 - 107 mmol/L) 104 Carbon Dioxide (21 - 32 mmol/L) 29 Anion Gap (4 - 15 GAP calc) 8 BUN (7 - 18 MG/DL) 11 Creatinine (0.6 - 1.0 MG/DL) 1.0 Glomerular Filtr Rate (>60 estGFR) >=60 max estimate Glucose (70 - 110 MG/DL) 229 H POC Glucose (70 - 110 mg/dL) 170 H Lactic Acid (0.4 - 1.9 mmol/L) 0.9 Calcium (8.5 - 10.1 MG/DL) 8.9 Phosphorus (2.5 - 4.9 MG/DL) 4.0 Magnesium (1.8 - 2.4 MG/DL) 1.9 Total Creatine Kinase (21 - 215 41 Unit/L) Troponin I High Sens (0 - 78 ng/L) 12.0 Triglycerides (0 - 150 MG/DL) 191 H Cholesterol (133 - 200 MG/DL) 80 L LDL Cholesterol Measurd (0 - 129 39 MG/DL) Non-HDL Cholesterol (<130 mg/dL) 44 HDL Cholesterol (60 MG/DL) 36 L LDL/HDL Ratio (1.48 - 3.22 Avg Ratio) 1.08 L Cholesterol/HDL Ratio (0 RATIO) 2.22 08/04 184 Chemistry POC Glucose (70 - 110 mg/dL) 130 H Laboratory Tests 08/05 256 Hematology WBC (3.5 - 11.0 K/mm3) 8.2 RBC (4.70 - 6.10 M/mm3) 3.71 L Hgb (12.3 - 15.9 G/DL) 11.6 L Hct (35.8 - 46.7 %) 33.9 L MCV (86.3 - 98.9 Fl) 91.4 MCH (28.9 - 34.4 pg) 31.3 MCHC (32.1 - 34.5 G/DL) 34.2 RDW (11.5 - 14.5 SD) 12.6 Plt Count (150 - 450 K/mm3) 208 MPV (7.0 - 9.6 fL) 11.00 H Neut % (Auto) (40 - 76 %) 61.5 Lymph % (Auto) (20.5 - 51.1 %) 29.4 [place] % (Auto) (1.7 - 9.3 %) 5.5 Eos % (Auto) (0.0 - 6.0 %) 2.8 Baso % (Auto) (0.0 - 2.0 %) 0.6 Neut # (Auto) (1.8 - 7.6 K/mm3) 5.0 Lymph # (Auto) (0.6 - 3.0 K/mm3) 2.4 [place] # (Auto) (0.2 - 1.5 K/mm3) 0.5 Eos # (Auto) (0.0 - 0.4 K/mm3) 0.2 Baso # (Auto) (0.0 - 0.2 K/mm3) 0.1 Abs Immat Gran (auto) (0.00 - 0.03 x10 3/uL) 0.02 Immature Gran % (0.0 - 5.0 %) 0.2 Nucleated RBC % (0.0 - 1.0 /100WBC%) 0.0 Laboratory Tests 08/04 2153 Toxicology Urine Opiates Screen (<300 NG/ML SCcutoff) NEGATIVE Urine Methadone Screen (<300 NG/ML SCcutoff) NEGATIVE Urine Barbiturates (<200 NG/ML SCcutoff) NEGATIVE Ur Phencyclidine Scrn (<25 NG/ML SCcutoff) NEGATIVE Ur Amphetamines Screen (<1000 NG/ML SCcutoff) NEGATIVE U Benzodiazepines Scrn (<200 NG/ML SCcutoff) NEGATIVE Urine Cocaine Screen (<300 NG/ML SCcutoff) NEGATIVE Urine Cannabinoids (<50 NG/ML SCcutoff) POSITIVE H Diagnosis, Assessment Plan Free Text DxA P Notes Free Text DxA P Notes: Acute stroke with improvement after TNK administration Pre-existing severe neuropathy and significant sensory and motor deficits Diabetes mellitus type 2 Pre-existing stent to the LAD History of PTSD Recommendations: Patient received TNK in the emergency room At this time the patient is back to baseline with mild weakness of the left arm. There is a pronator drift there. I do not see any facial droop at this time Speech is back to normal Antiplatelet agents per neurology Manages blood sugars DVT prophylaxis at 1510 RPT #: [id number] END OF REPORT [facility] 2024-08-05 13:29:00 [facility]) Hospitalist Progress Note REPORT#:[id number] REPORT STATUS: Signed REPORT INITIALIZATION DATE:08/05/24 TIME:132 PATIENT: BOB ABBOTT UNIT #: [id number] ROOM/BED: [place] [id number] : 59 AGE: 64 SEX: M ATTEND: Enzo Jauregui MD ADM AUTHOR: Enzo Jauregui MD REPT SERVICE DT/TIME: 08/05/24 1329 * ALL edits or amendments must be made on the electronic/computer document * Subjective Chief complaint: Right-sided facial droop and left-sided weakness rule out stroke versus seizure S/p TNK HPI: 84-year-old male past medical history of diabetes type 2, CAD status post PCI to LAD coronary on Plavix in 7 years, peripheral neuropathy and TIA 1-1/2 years ago. Presented after a syncopal episode followed by right-sided facial droop and left-sided weakness around 1320 this afternoon. History of diabetes, SANCHO, PTSD, hypertension. Presenting via EMS due to concern for stroke alert. Last known normal 1320. Was at [facility] when he syncopized after complaining of dizziness. Epigastric "squeezing". Per , he had a facial droop and alert slurred speech. Decreased sensation to the left lower extremity. Decresed strength left lower extremity. Tremors to left upper extremity Review of Systems Free Text ROS Notes Free Text ROS Notes: Denies CP, N/V , dizziness and palpitations Objective General VS/I O: Vital Signs: Date Time Temp Pulse Resp B/P B/P Pulse O2 O2 Flow FiO2 Mean Ox Delivery Rate 08/05 2030 50 13 145/66 95 97 08/05 2015 49 12 142/63 96 97 08/05 2000 36.2 08/05 2000 49 12 138/63 90 97 08/05 1945 52 14 142/62 96 96 08/05 1930 54 14 144/67 96 98 08/05 1916 56 17 144/67 96 97 08/05 1902 58 22 158/71 102 08/05 1700 55 19 146/71 102 99 08/05 1645 54 16 157/81 113 98 08/05 1630 56 23 156/77 110 99 08/05 1615 53 16 157/74 107 99 08/05 1601 55 17 151/68 98 98 08/05 1545 59 20 133/63 90 98 08/05 1530 50 14 148/73 104 95 08/05 1515 55 14 147/75 105 98 08/05 1500 51 14 156/71 102 95 08/05 1445 57 13 152/68 98 97 08/05 1415 58 20 145/67 97 96 08/05 1401 61 15 142/63 91 97 08/05 1346 64 17 142/66 95 98 08/05 1331 118 34 185/81 117 99 08/05 1315 57 17 156/71 107 98 08/05 1300 56 14 158/72 104 98 08/05 1246 63 19 170/71 102 99 08/05 1230 58 15 159/71 108 99 08/05 1215 61 22 164/75 112 99 08/05 1200 Nasal cannula 08/05 1200 57 22 155/77 105 100 08/05 1145 61 22 144/70 100 98 08/05 1130 71 41 149/76 104 99 08/05 1116 56 14 146/76 103 99 08/05 1100 50 13 136/64 94 97 08/05 1045 55 17 148/71 102 99 08/05 1030 54 16 134/65 94 99 08/05 1015 55 17 136/63 93 99 08/05 1000 60 27 170/76 109 100 08/05 0945 55 13 140/69 96 97 08/05 0931 59 26 159/101 119 99 08/05 0915 64 23 132/66 93 99 11/10 0900 52 12 127/63 89 97 11/10 0845 57 17 123/58 83 97 11/10 0831 58 14 123/58 83 99 11/10 0800 56 18 139/60 93 98 11/10 0746 57 26 134/62 89 99 11/10 0731 61 29 177/79 114 99 11/10 0715 57 16 139/68 97 99 11/10 0700 36.3 Room air 11/10 0700 52 9 141/69 99 98 11/10 0630 56 17 123/60 86 99 11/10 0615 48 8 123/61 86 97 11/10 0600 49 6 143/70 99 98 11/10 0545 48 14 130/65 92 98 11/10 0530 48 13 132/63 92 97 11/10 0515 57 10 135/63 92 99 11/10 0508 53 14 136/62 89 98 11/10 0446 74 36 147/70 101 98 11/10 0430 54 19 145/65 93 98 /10 0415 51 16 118/59 83 98 11/10 0400 36.3 /10 0400 53 19 120/54 84 97 /10 0345 55 15 134/64 92 98 /10 0330 53 15 137/56 84 98 /10 0315 49 13 128/64 91 98 11/10 0300 51 13 132/61 90 98 11/10 0245 51 16 131/66 91 97 11/10 0230 56 17 116/64 86 97 /10 0215 53 18 121/63 87 97 /10 0200 59 21 122/60 85 97 /10 0145 52 16 129/64 91 97 11/10 0130 49 14 119/56 82 97 11/10 0115 54 15 130/58 85 96 /10 0100 51 15 113/58 83 97 /10 0045 52 15 122/58 84 97 /10 0030 55 18 125/63 89 97 11/10 0015 56 18 130/66 92 97 11/10 0000 36.8 11/10 0000 50 14 124/61 85 97 08/04 2345 49 13 122/58 84 97 / 2330 50 14 129/55 85 97 08/04 2315 49 15 146/65 93 97 08/04 2300 72 16 122/60 85 98 08/04 2245 51 15 131/63 92 97 08/04 2230 58 16 146/65 93 97 08/04 2200 54 22 143/67 97 99 24 hour I O ending at 0700: 08/05 0700 08/04 1900 Intake Total 1260.00 Output Total 700 Balance 560.00 Intake, IV 900.00 Intake, Oral 360 Output, Urine 700 Patient 80.2 kg 89.3 kg Weight Weight Bed scale Bed scale Measurement Method PATIENT WEIGHT: Weight (lb): 175 Weight (oz): 15.99 Weight (kg): 79.832 Medications: Active Meds + DC'd Last 24 Hrs Atorvastatin Calcium (LIPITOR) 40 MG DAILY 1700 PO Clopidogrel Bisulfate (Plavix) 75 MG DAILY PO Atorvastatin Calcium (LIPITOR) 80 MG DAILY 1700 PO (DC) Perflutren Lipid Microsphere (DEFINITY) 2 ML ONCE PRN IV (CKD) Dextrose (GLUCOSE) 4 GM ASDIR PRN PO Dextrose/Water (DEXTROSE 10% IN WATER 250 ML) 250 ML ASDIR IV Glucagon (GLUCAGON) 1 MG ASDIR PRN IM Donepezil HCl (ARICEPT) 10 MG DAILY PO Duloxetine HCl (CYMBALTA) 60 MG DAILY PO Tamsulosin HCl (FLOMAX) 0.4 MG DAILY PO Gabapentin (NEURONTIN) 900 MG Q8HR PO Aripiprazole (ABILIFY) 10 MG BEDTIME PO Melatonin (Melatonin) 5 MG BEDTIME PRN PRN PO Memantine (NAMENDA) 10 MG BID PO Mupirocin (BACTROBAN) 1 APPLIC BID NASAL Polyethylene Glycol (MIRALAX) 17 GM DAILY PRN PRN PO Sodium Chloride (0.9% Sodium Chloride) 1,000 ML .Q10H IV (DC) Magnesium Oxide (MAG-OX 400) 400 MG Q8H PRN PRN PO Magnesium Sulfate (MAGNESIUM SULFATE 2 G IN SWFI 50 ML) 50 ML ASDIR PRN IV Magnesium Sulfate (MAGNESIUM SULFATE 2 G IN SWFI 50 ML) 50 ML Q2H PRN PRN IV Phosphorus (K-PHOS NEUTRAL) 500 MG Q4H PRN PRN PO Phosphorus (K-PHOS NEUTRAL) 500 MG Q4H PRN PRN PO Potassium Chloride (POTASSIUM CHLORIDE 10 MEQ/SWFI 50 ML) 50 ML ASDIR PRN IV Potassium Chloride (KCL 20 MEQ/SWFI 100 ML) 100 ML ASDIR PRN IV Potassium Chloride (KCL 20 MEQ/SWFI 100 ML) 100 ML ASDIR PRN IV Potassium Chloride (KCL 20 MEQ/SWFI 100 ML) 100 ML ASDIR PRN IV Potassium Chloride (K-DUR 20 mEq) 20 MEQ ASDIR PRN PO Potassium Chloride (K-DUR 20 mEq) 20 MEQ ASDIR PRN PO Potassium Phosphate (POTASSIUM PHOSPHATE) 20 MMOL ASDIR PRN IV Sodium Chloride (SODIUM CHLORIDE 0.9%) 250 ML Potassium Phosphate (POTASSIUM PHOSPHATE) 30 MMOL ASDIR PRN IV Sodium Chloride (SODIUM CHLORIDE 0.9%) 250 ML Sodium Biphosphate (SODIUM PHOSPHATE) 20 MMOL ASDIR PRN IV Sodium Chloride (SODIUM CHLORIDE 0.9%) 250 ML Sodium Biphosphate (SODIUM PHOSPHATE) 30 MMOL ASDIR PRN IV Sodium Chloride (SODIUM CHLORIDE 0.9%) 250 ML Sodium Phosphate (SODIUM PHOS 15 MMOL/ NS 250ML) 250 ML ASDIR PRN IV Undefined Medication (POTASSIUM PHOS 15 MMOL/ NS 250ML) 250 ML ASDIR PRN IV Insulin Human Lispro (HUMALOG) 0 Q6H SUBQ Dietitian nutrition assessment The data set between the solid lines has been imported from the dietitian's assessment. ___ BMI Calculated: 26.8 Nutrition related diagnosis: Nutrition diagnosis details: Nutrition problem: Nutrition etiology: Nutrition signs and symptoms: Nutrition prescription: Dietitian name: Assessment completed: ___ Free Text Obj Notes Free Text Obj Notes: HEENT:atraumatic CVS: S1-S2 audible Resp: Normal vesicular breathing Neuro: Right upper extremity 5/5 Right lower extremity 4 /5 at baseline Left upper extremity 4/5 at baseline Left lower extremity 4/5 at baseline Patient reports currently neurological status seems to be at baseline No facial droop noted Diagnosis, Assessment Plan Free Text DxA P Notes Free text DxA P notes: #Right-sided facial droop and left-sided weakness rule out CVA #Status post TNK #Syncope with jerking movement likely secondary to seizure versus cardiogenic syncope #Past medical history of CAD #Bifascicular Block TNK protocol CT head 24 hours later Statin Clop Home BP meds to be restarted gradually patient is normotensive Neurochecks Q1h Check A1c lipid panel Follow CTH MRI brain TTE with bubble SCDs Hydration Lispro sliding scale Blood sugar control:, Blood glucose monitoring every 6 hours Dysphagia screen Carb Consistent diet PT OT consult Neurology consulted will appreciate input Permissive hypertension Telemonitoring Echo with bubble Will consider cardiology consult based on telemetry findings and echo findings Sawmill Worker consult placed will appreciate input Code full Bedrest Seizure, aspiration, fall precautions at 2158 RPT #: [id number] END OF REPORT [facility] 2024-08-04 18:07:00 [facility] ([facility]) Hospitalist History Physical REPORT#:[id number] REPORT STATUS: Signed REPORT INITIALIZATION DATE:08/04/24 TIME:1806 PATIENT: BOB ABBOTT UNIT #: [id number] ROOM/BED: [place] [address] : [birth year] AGE: 64 SEX: M ATTEND: Enzo Jauregui MD ADM AUTHOR: Enzo Jauregui MD REPT SERVICE DT/TIME: 08/04/241806 * ALL edits or amendments must be made on the electronic/computer document * See Addendum History of Present Illness HPI Chief complaint: Right-sided facial droop and left-sided weakness rule out stroke versus seizure S/p TNK PCP: PCP: No Primary or Family Physician HPI: 84-year-old male past medical history of diabetes type 2, CAD status post PCI to LAD coronary on Plavix in 7 years, peripheral neuropathy and TIA 1-1/2 years ago. Presented after a syncopal episode followed by right-sided facial droop and left-sided weakness around 1320 this afternoon. History of diabetes, SANCHO, PTSD, hypertension. Presenting via EMS due to concern for stroke alert. Last known normal 1320. Was at [facility] when he syncopized after complaining of dizziness. Epigastric "squeezing". Per , he had a facial droop and alert slurred speech. Decreased sensation to the left lower extremity. Decresed strength left lower extremity. Tremors to left upper extremity History Smoking status for patients 13 years old or older: Current every day smoker Medication/Allergy-Vaccine Hx Allergies: Coded Allergies: No Known Allergies (08/04/24) Review of Systems Free Text ROS Notes Free Text ROS Notes: Reports tongue bite, chest squeezing, syncope, left upper and lower extremity weakness. Denies nausea vomiting, abdominal pain, dizziness, back pain. Objective General VS/I O: Vital Signs: Date Time Temp Pulse Resp B/P B/P Pulse O2 O2 Flow FiO2 Mean Ox Delivery Rate 08/04 1509 50 123/58 84 98 08/04 1500 99 08/04 1445 37.1 55 16 123/58 79 98 Room air PATIENT WEIGHT: Weight (lb): Weight (oz): Weight (kg): 89.300 Medications: Active Meds + DC'd Last 24 Hrs Mupirocin (BACTROBAN) 1 APPLIC DAILY NASAL (PEND) Tenecteplase (TNKASE) 0 X1ED STA IV (DC) Tenecteplase (TNKASE) 50 MG X1ED STA IV (CAN) Iopamidol (ISOVUE-370) 0 .STK-MED ONE IV (DC) Free Text Obj Notes Free Text Obj Notes: HEENT: Tongue bite positive, blood in oral cavity CVS: S1-S2 audible Resp: Normal vesicular breathing Neuro: Right upper extremity 5/5 Right lower extremity 4 /5 at baseline Left upper extremity 4/5 at baseline Left lower extremity 4/5 at baseline Patient reports currently neurological status seems to be at baseline Right facial droop Diagnosis, Assessment Plan Free Text DxA P Notes Free Text DxA P Notes: #Right-sided facial droop and left-sided weakness rule out CVA #Status post TNK #Syncope with jerking movement likely secondary to seizure versus cardiogenic syncope #Past medical history of CAD Admit to ICU TNK protocol CT head 24 hours later Start statin 80 Mg Neurochecks every hour Check A1c lipid panel Hold aspirin Plavix at this time to be initiated after repeat CT head 24 hours later SCDs Hydration Lispro sliding scale Blood sugar control:, Blood glucose monitoring every 6 hours Dysphagia screen N.p.o. till dysphagia screen is completed PT OT consult Neurology consulted will appreciate input MRI brain in a.m. order to be placed once confirmed whether need for contrast study to rule out seizures Seizure precautions Ativan at bedside as needed for seizures Permissive hypertension Telemonitoring Echo with bubble Will consider cardiology consult based on telemetry findings and echo findings Sawmill Worker consult placed will appreciate input Code full Bedrest Seizure, aspiration, fall precautions at 1822 Addendum 1: 08/04/24 183 by Enzo Jauregui MD EKG noted for bradycardia continue to monitor on telemetry Check mag Phos CPK lactic acid at 1833 RPT #: [id number] END OF REPORT [facility] 2024-08-04 15:00:00 [facility] ([facility]) EMERGENCY PROVIDER REPORT REPORT#:[id number] REPORT STATUS: Signed DATE:08/04/24 TIME:1500 PATIENT: BOB ABBOTT UNIT #: [id number] ROOM/BED: [place] [address] : 58 AGE: 64 SEX: M PCP PHYS: No Primary or Family Physician SERVICE AUTHOR: Izzy Landry MD REP SRV REP SRV TM: 1500 * ALL edits or amendments must be made on the electronic/computer document * HPI-Stroke/CVA Free Text HPI Notes Free Text HPI Notes The patient is a 64-year-old male with history of diabetes, PTSD, hypertension, TIA, CAD and SANCHO per EMS, presenting today via EMS as a stroke alert. Per EMS, the patient was at the [facility] when he lost consciousness. Upon regaining consciousness, he was noted to have a left-sided facial droop, slurred speech per , and decreased strength and sensation to the left upper and lower extremities. Medications include Plavix. General Initial Greet Date/Time 08/04/24 1445 )( Stroke Notification Alert Advance Notification by EMS? Yes Date Alert Received 08/04/24 )( Time Alert Received 1423 Presentation )( Last Known Well )( Time 1320 Hx Obtained From Patient, Spouse, EMS )( Progression since Onset Gradually improving Risk-Stroke/CVA Risk Stratification )( Initial NIH Stroke Scale )( Initial NIH Stroke Scale Response Value NIHSS Applicable? Yes 0 Level of Consciousness Alert and responsive (0) 0 Ask Month Age Both questions right (0) 0 Blink Eyes/Squeeze Hands Performs both tasks (0) 0 Horizontal EOM NL side/side eye mvmt (0) 0 Visual Nieves No visual loss (0) 0 Facial Palsy Minor paralysis (1) 1 Right Arm Motor Drift (10s) No drift 10 sec (0) 0 Left Arm Motor Drift (10s) Drift, not touch bed (1) 1 Right Leg Motor Drift (5s) Drift, not touch bed (1) 1 Left Leg Motor Drift (5s) Drift, not touch bed (1) 1 Limb Ataxia FNF/Heel-Johnson No ataxia (0) 0 Sensation (Arms/Legs/Face) Pinprick less sharp (1) 1 Language Aphasia No aphasia, normal (0) 0 Dysarthria Slur but intelligible (1) 1 Extinction/Inattention No extinct/inattent (0) 0 Total 6 Holger Coma Score: Copyright Sir Amari [place] Copyright Sir Amari Hubert Eye opening: (4) Spontaneous Verbal response: (5) Oriented Best motor response: (6) Obeys commands GCS Score: 15 )( Modified Matthew Scale 1- No signif disability Review of Systems ROS Statements All systems rev neg except as marked. Free Text ROS Notes Free Text ROS Notes Limited secondary to acute presentation Constitutional: Denies fever, chills, or weight loss. HEENT: (+) Mild headache Cardiovascular: Denies chest pain or edema Respiratory: Denies cough or shortness of breath GI: Denies abdominal pain, nausea or vomiting : Denies dysuria and hematuria MSK: Denies myalgias Neuro: (+) Weakness and sensory changes PMH-Stroke/CVA Stated Complaint SLURRED SPEECH AND FACIAL DROOP Allergies Coded Allergies: No Known Allergies (08/04/24) Home Medications Reported Medications GABAPENTIN (NEURONTIN) 900 MG TID CLOPIDOGREL (PLAVIX) 75 MG PO DAILY amLODIPine (NORVASC) 5 MG PO DAILY ISOSORBIDE MONONITRATE SR (IMDUR) 30 MG PO DAILY TAMSULOSIN ER (FLOMAX) 0.4 MG PO DAILY ATORVASTATIN (LIPITOR) 40 MG PO DAILY DULoxetine DR (CYMBALTA) 60 MG PO DAILY DONEPEZIL (ARICEPT) 10 MG PO DAILY CYANOCOBALAMIN (VITAMIN B-12) 1,000 MCG PO DAILY ERGOCALCIFEROL (VITAMIN D2) 50,000 UNITS PO Q30D LOSARTAN (COZAAR) 50 MG PO DAILY MEMANTINE 10 MG PO BID ARIPiprazole (ABILIFY) 10 MG PO BEDTIME metFORMIN 500 MG PO BID Physical Exam Vital Signs Vital Signs First Documented: Result Date Time Pulse Ox 98 08/04 1445 B/P 123/58 08/04 144 B/P Mean 79 08/04 1445 O2 Delivery Room air 08/04 1445 Temp 98.7 08/04 144 Pulse 55 08/04 144 Resp 16 08/04 144 Last Documented: Result Date Time Pulse Ox 99 08/04 1613 B/P 134/67 08/04 1613 B/P Mean 95 08/04 1613 Pulse 50 08/04 1613 Resp 18 08/04 1613 O2 Delivery Room air 08/04 1445 Temp 98.7 08/04 1445 Review of Vital Signs Reviewed Free Text PE Notes Free Text PE Notes General appearance: Alert and oriented. Well appearing. No acute distress. Head: Normocephalic. Atraumatic. Mild lip asymmetry to left. Ears: Non traumatic. No swelling or erythema. Hearing intact. Eyes: PERRL. EOMI. No conjunctival injection. No scleral icterus. Eyelids normal. Nose: Nasal bridge with no tenderness. No discharge. No bleeding Throat: No pharyngeal erythema, discharge or exudates. No oral lesions. Uvula midline. Neck: Trachea midline. No hematomas. No tenderness. Full ROM. Resp: Clear to auscultation. No wheezing/crackles/rales. Symmetric chest rising. CVS: Normal rate and rhythm. No M/G/R. Peripheral pulses normal GI: Soft. Non distended. Non tender to palpation. No guarding. MSK: No extremity edema. Non tender to palpation. Full range of motion. Neuro: Alert. Oriented. Subjective slurred speech. 3/5 strength LLE. 4/5 Strength RLE. 4/5 Strength LUE. LLE diminished sensation Skin: No clubbing. No rashes. No cyanosis. Warm. Normal cap refill Psych: Linear thinking. Normal affect. Normal concentration Interpretation Diagnostics Lab Results Interpretation Results Laboratory Tests 08/04/24 1457: [Embedded Image Not Available] Laboratory Tests: 08/04 08/04 1457 1451 Chemistry Sodium (136 - 145 mmol/L) 141 Potassium (3.4 - 5.0 mmol/L) 3.8 Chloride (98 - 107 mmol/L) 104 Carbon Dioxide (21 - 32 mmol/L) 28 Anion Gap (4 - 15 GAP calc) 9 BUN (7 - 18 MG/DL) 12 Creatinine (0.6 - 1.0 MG/DL) 1.0 Glomerular Filtr Rate (>60 estGFR) >=60 max estimate Glucose (70 - 110 MG/DL) 149 H POC Glucose (70 - 110 mg/dL) 157 H Calcium (8.5 - 10.1 MG/DL) 8.9 Troponin I High Sens (0 - 78 ng/L) 9.5 Coagulation INR (0.8 - 1.2 INR Unit) 1.13 PTT (Kami) (26 - 35 SECONDS) 26.8 PT Patient/Control Mix (9.3 - 12.9 SECONDS) 12.4 Hematology WBC (3.5 - 11.0 K/mm3) 8.8 RBC (4.70 - 6.10 M/mm3) 3.77 L Hgb (12.3 - 15.9 G/DL) 11.9 L Hct (35.8 - 46.7 %) 34.4 L MCV (86.3 - 98.9 Fl) 91.2 MCH (28.9 - 34.4 pg) 31.6 MCHC (32.1 - 34.5 G/DL) 34.6 H RDW (11.5 - 14.5 SD) 12.5 Plt Count (150 - 450 K/mm3) 211 MPV (7.0 - 9.6 fL) 10.70 H Neut % (Auto) (40 - 76 %) 70.4 Lymph % (Auto) (20.5 - 51.1 %) 21.2 [place] % (Auto) (1.7 - 9.3 %) 5.3 Eos % (Auto) (0.0 - 6.0 %) 2.3 Baso % (Auto) (0.0 - 2.0 %) 0.5 Neut # (Auto) (1.8 - 7.6 K/mm3) 6.2 Lymph # (Auto) (0.6 - 3.0 K/mm3) 1.9 [place] # (Auto) (0.2 - 1.5 K/mm3) 0.5 Eos # (Auto) (0.0 - 0.4 K/mm3) 0.2 Baso # (Auto) (0.0 - 0.2 K/mm3) 0.0 Abs Immat Gran (auto) (0.00 - 0.03 x10 3/uL) 0.03 Immature Gran % (0.0 - 5.0 %) 0.3 Nucleated RBC % (0.0 - 1.0 /100WBC%) 0.0 Recent Impressions: CAT SCAN - CT STROKE HEAD/BRAIN W/O CON 08/04 1450 Report Impression - Status: SIGNED Entered: 08/04/2024 1507 IMPRESSION: 1. No acute intracranial hemorrhage or mass effect. 2. Mild chronic microangiopathic changes. 3. Findings were discussed with Izzy Landry at 08/04/2024 3:08 PM SPD MANAGER. ASSESSMENT: ASPECTS (Daisy Stroke Program Early CT Score) is 10. Impression By: [email or web address] Alana Desouza M.D CAT SCAN - CTA NECK 08/04 1455 Report Impression - Status: SIGNED Entered: 08/04/2024 1525 IMPRESSION: CTA Head With Contrast, Arteriography No definite acute major large vessel branch occlusion or flow-limiting intracranial stenosis. Please correlate with neurologic symptoms and dedicated MRI brain can be performed for further evaluation. CTA Neck With Contrast No flow-limiting internal carotid artery or vertebral stenosis detected. Impression By: Fredy Brown M.D. CAT SCAN - CTA HEAD 08/04 1455 Report Impression - Status: SIGNED Entered: 08/04/2024 1523 IMPRESSION: CTA Head With Contrast, Arteriography No definite acute major large vessel branch occlusion or flow-limiting intracranial stenosis. Please correlate with neurologic symptoms and dedicated MRI brain can be performed for further evaluation. CTA Neck With Contrast No flow-limiting internal carotid artery or vertebral stenosis detected. Impression By: Fredy Brown M.D. RADIOLOGY - XR CHEST 1 V 08/04 1505 Report Impression - Status: SIGNED Entered: 08/04/2024 1519 IMPRESSION: No acute cardiopulmonary findings. Impression By: [email or web address] - Jc Mendiola M.D. Point of Care Testing Pulse Oximetry Pulse Ox % 98 On: Room air Interpretation Interpreted by me, Pulse oximetry normal Blood Glucose Field Fingerstick Blood Sugar Value: 130 ECG #1 Interpretation Text/Dict Note Bradycardic 56 bpm Normal axis appropriate intervals No STEMI Date 08/04/24 Time 1515 Interpreted by and reviewed by me, Independently interpreted, ED physician MDM-Stroke/CVA Free Text MDM Notes Free Text MDM Notes The patient is a 64 y.o male presenting today via EMS after stroke notificaton; alert received at 14:23; arrived to EC at 14:44. On arrival to EC, the patient is stable and in no acute distress. POC Glucose negative for hypoglycemia. Negative external signs of trauma. Per patient, he has lower extremity weakness at baseline, but symptoms since 1320 worsened; primarily left sided with new facial droop. CT Head and CTA head/negative for intracranial hemorrhage or LVO. On reassessment of patient post-imaging, patient states symptoms are significantly improved, and not debilitating. Initial plan to withhold TNK. On 's arrival to bedside, patient endorses extremity weakness that is different than baseline. Patient's states his speech does not appear at baseline, with facial droop. Verbal informed consent obtained to push TNK. Patient has no absolute contraindications. Home med of Plavix, with normal coags on labs. Re-Evaluation/Progress #1 Text/Dict Note Patient remains in stable condition post-TNK. Vital signs stable. No acute distress. Denies headache or additional complaints. Stroke Thrombolytic Therapy Administered IV Thrombolytic? Yes Discussed Risks, Benefits, and Alternatives Yes Consent Obtained Patient Intensive Monitoring Performed Yes Complications Encountered No serious complications Text/Dict Note On-call neurologist called via cellphone number provided after CT imaging resulted x2 - no answer On-call neurologist called via clinic number provided - no answer Inclusion Criteria Measurable neuro deficit, Age >= 18, Onset 3-4.5 hrs, see addl, Baseline CT neg for hem Exclusion Criteria No exclusions ED Course Medication(s) Ordered Medication(s) Ordered: Blood Formation,Coagulation Sig/Chen Start time Last Medication Dose Route Stop Time Status Admin Tenecteplase 0 X1ED STA 08/04 1614 DC 08/04 IV 08/04 1615 1615 Tenecteplase 50 MG X1ED STA 08/04 1613 CAN IV 08/04 1614 Diagnostic Agents Sig/Chen Start time Last Medication Dose Route Stop Time Status Admin Iopamidol 0 .STK-MED ONE 08/04 1449 DC 08/04 IV 1513 Skin And Mucous Membrane Agent Sig/Chen Start time Last Medication Dose Route Stop Time Status Admin Mupirocin 1 APPLIC BID 08/04 2100 AC NASAL 08/09 0901 Differential Diagnosis Differential Diagnosis Atypical migraine, Moulton's Palsy, Cerebellar hemorrhage, Cerebrovascular accident, Closed head injury, Drug overdose, Electrolyte disorder, Encephalitis, Hepatic encephalopathy, Hypoglycemia, Intoxication: other drug, Intraparench hemorrhage, Malignancy, Mass lesion, Posterior circ bleed, Seizure disorder, Subarachnoid hemorrhage, Subdural hemorrhage, Systemic infection, Deshawn's paralysis, Transient ischemic attack, Vertebrobas dissection, Vertebrobasilar thrombus Findings/Social Determinants Presentation Acute Severity Evaluation Life-threatening, Serious condition MDM-Complexity Ruled Out Diagnoses Intracranial hemorrhage Sepsis ACS MDM-Treatment/Evaluation Shared Decision-Making Patient and spouse agree with TNK administration Patient Discharge Departure Vital Signs/Condition Vital Signs First Documented: Result Date Time Pulse Ox 98 08/04 1445 B/P 123/58 08/04 1445 B/P Mean 79 08/04 1445 O2 Delivery Room air 08/04 1445 Temp 98.7 08/04 1445 Pulse 55 08/04 1445 Resp 16 08/04 1445 Last Documented: Result Date Time Pulse Ox 99 08/04 1613 B/P 134/67 08/04 1613 B/P Mean 95 08/04 1613 Pulse 50 08/04 1613 Resp 18 08/04 1613 O2 Delivery Room air 08/04 1445 Temp 98.7 08/04 1445 All vital signs available at the time of this entry have been reviewed. Clinical Impression Clinical Impression Primary Impression: CVA (cerebral vascular accident) Secondary Impressions: Asymptomatic bradycardia Disposition Decision Hospitalize Hosp Physician Name Enzo Jauregui MD Hosp Physician Hospitalist Request Time 1645 Request Date 08/04/24 )( Accepts Hospitalization Yes )( Reason for Hospitalization CVA )( Accepted Time 1645 )( Accepted Date 08/04/24 Call Information will see patient Critical Care Time Spent (minutes): 75 Services Performed Patient management by me, Time spent at bedside, Reviewing test results, Reviewing imaging, Discussing patient care, Documentation in record Separately billable procedures excluded from time. Patient was critically ill due to: Neurologic deficits with concern for cerebrovascular accident My treatment and management were: Radiographic imaging Administration of thrombolytic medications Frequent reassessments ICU admission CC Note 1 Total critical care time 75 minutes. Total critical care time documented does not include time spent on separately billed procedures or the services of residents, students, nurses or physician assistants. I personally saw and examined the patient. I have reviewed all diagnostic interpretations and treatment plans as written. I was present for the weinberg portions of any procedures performed and the inclusive time noted in any critical care statement. Critical care time includes patient management by me, time spent at the patients bedside, time to review lab and imaging results, discussing patient care, documentation in the medical record, and time spent with the family or caregiver. at [address] [facility] #: [phone] END OF REPORT [facility]
[2025-05-22] MEDS ORDERED: ONDANSETRON 4 MG/2 ML VIAL ONE (14:34)
[2025-05-22] MEDS ORDERED: FAMOTIDINE 20 MG/2 ML VIAL IV ONE (14:34)
[2025-05-22] MEDS ORDERED: NA CHLORIDE 0.9% 1,000 ML ONE (14:34)
[2025-05-22 15:15] LABS: Absolute Lymphocytes (CBC) 2.4 K/uL (0.7-4.9); Hematocrit 37.1 % (39.6-49.0); Hemoglobin 13.0 g/dL (13.6-17.9); MCH 31.1 pg (27.0-35.0); MCHC 35.1 g/dL (32.0-36.0); MCV 88.5 fL (80-100); MPV 9.1 fL (7.6-11.3); Nucleated RBC Absolute Count 0.0 (0-0); Nucleated Red Blood Cells % 0.0 % (0-0); RBC Red Blood Cell Count 4.20 M/uL (4.33-5.43); White Blood Count 12.30 thou/uL (4.3-10.9)
[2025-05-22 15:16] LABS: PT Prothrombin Time 12.7 SECONDS (10-13.0); Protime INR 1.13
[2025-05-22 15:19] LABS: Sqamous Epithelial None Seen /HPF (None Seen); Urine Crystals Unidentified Few /HPF (None Seen); Urine Culture Reflex Order NOT NEEDED; Urine Microscopic Reflex YN ORDER UMIC
--- NOTE | 2025-05-22 15:32 | RAD REPORT ---
Procedure: Chest Single View HISTORY: Abdominal pain COMPARISON: none FINDINGS: The lungs appear clear of acute infiltrate. No significant pleural effusion noted. The heart is normal size. IMPRESSION: No acute abnormality is displayed.
[2025-05-22 15:38] LABS: Potassium 4.0 mEq/L (3.5-5.1)
[2025-05-22 15:39] LABS: ALT/SGPT 29.0 U/L (16-61); AST/SGOT 19.0 U/L (15-37); Alkaline Phosphatase 95.0 U/L (45-117); Anion Gap 13.0 mEq/L (5.0-15.0); BUN Blood Urea Nitrogen 24.0 mg/dL (7-18); Bilirubin Indirect, Calculated 0.4 mg/dL (0.2-0.8); Glucose Level 129.0 mg/dL (74-106)
[2025-05-22 15:40] LABS: Albumin 3.8 g/dL (3.4-5.0); Albumin/Globulin Ratio 1.1 (1.1-1.8); Globulin 3.4 g/dL (2.3-3.5); Lipase 33.0 U/L (13-75); Magnesium 1.9; NT PRO-BNP 97.0 pg/mL (<125); Troponin High Sensitivity 6.3 (<58.9)
--- NOTE | 2025-05-22 16:31 | ER ---
Nurse's Notes [facility] Name: Jatin Cadena Age: 65 yrs Sex: Male : 1960 Arrival Date: 05/22/2025 Time: 13:12 Bed 20 Private MD: Diagnosis: Anorexia;Dehydration;Adverse effect of unspecified drugs, medicaments and biological substances-GLP1 Presentation: 05/22 13:32 Chief complaint: Spouse and/or significant other states: went to the [facility], has not iw been able to eat for past week, his blood sugar was low this morning, he has white sores in his mouth X 2 weeks and he is having uncontrolled mouth movements , anytime he tries to eat it makes his stomach expand and he does not have an appetite. Coronavirus screen: At this time, the client does not indicate any symptoms associated with coronavirus-19. Ebola Screen: No symptoms or risks identified at this time. 13:32 Method Of Arrival: Wheelchair iw 13:32 Acuity: SAVANNA 3 iw 13:34 Initial Sepsis Screen: Does the patient meet any 2 criteria? No. Patient's initial iw sepsis screen is negative. Does the patient have a suspected source of infection? No. Patient's initial sepsis screen is negative. Risk Assessment: Do you want to hurt yourself or someone else? Patient reports no desire to harm self or others. Onset of symptoms was May 08, 2025. Historical: - Allergies: 13:35 No Known Allergies; iw - Home Meds: 13:35 albuterol sulfate 2.5 mg /3 mL (0.083 %) Inhl Solution for Nebulization every 4 to 6 iw hours [Active]; amlodipine 5 mg tablet daily [Active]; aripiprazole oral [Active]; aspirin 81 mg Oral tablet,chewable daily [Active]; calcitriol 0.25 mcg oral capsule twice a day [Active]; carboxymethylcellulose sodium 0.25 % ophthalmic (eye) drops 4 times per day [Active]; clopidogrel 75 mg oral tablet daily [Active]; donepezil 10 mg oral tablet every day at bedtime [Active]; duloxetine 60 mg oral capsule,delayed release (e.c.) daily [Active]; ergocalciferol (vit D2) (bulk) miscellaneous powder [Active]; fluticasone furoate 27.5 mcg/actuation intranasal spray, suspension twice a day [Active]; gabapentin 300 mg oral capsule 3 times per day [Active]; losartan 25 mg oral tablet daily [Active]; meloxicam 15 mg oral tablet daily [Active]; memantine 10 mg oral tablet 2 times per day [Active]; metformin 500 mg Oral tablet 2 times per day with meals [Active]; sertraline 100 mg oral tablet daily [Active]; tamsulosin 0.4 mg oral capsule daily [Active]; tirzepatide 10 mg/0.5 mL subcutaneous Pen Injector every week [Active]; - PMHx: 15:34 Hypertensive disorder; Hypercholesterolemia; Anemia; Depressive disorder; Diabetes cm10 mellitus; - Immunization history:: Adult Immunizations up to date. - Infectious Disease History:: Denies. - Social history:: Smoking status: unknown. - Family history:: not pertinent. Screenin:[facility] ED Fall Risk Assessment (Adult) History of falling in the last 3 months, cm10 including since admission No falls in past 3 months (0 pts) Confusion or Disorientation No (0 pts) Intoxicated or Sedated No (0 pts) Impaired Gait No (0 pts) Mobility Assist Device Used No (0 pt) Altered Elimination No (0 pt) Score/Fall Risk Level 0 - 2 = Low Risk Oriented to surroundings, Maintained a safe environment, Hourly rounding (assess needs \T\ fall precautionary measures) done. Abuse screen: Denies threats or abuse. Denies injuries from another. Nutritional screening: No deficits noted. Tuberculosis screening: No symptoms or risk factors identified. Assessment: 14:45 General: Appears in no apparent distress. uncomfortable, Behavior is calm, cooperative. cm10 Neuro: No deficits noted. Level of Consciousness is awake, alert, obeys commands, Oriented to person, place, time, situation, Appropriate for age. Respiratory: No deficits noted. Airway is patent Respiratory effort is even, unlabored, Respiratory pattern is regular, symmetrical. GI: Reports constipation, nausea. Derm: Skin is dry. 16:09 Reassessment: PT BEING PO CHALLENGED AT THIS TIME. cm10 17:53 Reassessment: Patient appears in no apparent distress at this time. Patient and/or cm10 family updated on plan of care and expected duration. Pain level reassessed. Patient is alert, oriented x 3, equal unlabored respirations, skin warm/dry/pink. 18:42 Reassessment: Patient appears in no apparent distress at this time. Patient and/or cm10 family updated on plan of care and expected duration. Pain level reassessed. Patient is alert, oriented x 3, equal unlabored respirations, skin warm/dry/pink. Pain: Denies pain. Vital Signs: 13:32 BP 105 / 84; Pulse 76; Resp 16; Temp 99.2; Pulse Ox 100% on R/A; Weight 72.57 kg; iw Height 5 ft. 8 in. ; 14:15 BP 124 / 75; Pulse 68; Resp 13; Pulse Ox 100% on R/A; cm10 15:00 BP 134 / 69; Pulse 64; Resp 16; Pulse Ox 100% ; cm10 15:45 BP 140 / 71; Pulse 62; Resp 14; Pulse Ox 99% on R/A; cm10 16:30 BP 135 / 61; Pulse 59; Resp 12; Pulse Ox 100% on R/A; cm10 17:15 BP 137 / 62; Pulse 58; Resp 15; Pulse Ox 100% on R/A; cm10 18:00 BP 138 / 77; Pulse 60; Resp 12; Pulse Ox 98% on R/A; cm10 13:32 Body Mass Index 24.33 (72.57 kg, 172.72 cm) iw ED Course: 13:14 Patient arrived in ED. mr 13:19 Rios Ruiz MD is Attending Physician. [facility] 13:34 Triage completed. iw 14:12 Maribell Powers, RN is Primary Nurse. cm10 14:23 XRAY Chest (1 view) In Process Unspecified. EDMS 14:52 Arm band placed on right wrist. Patient placed in an exam room, on a stretcher. cm10 14:52 Initial lab(s) drawn, by pa, sent to lab. EKG done, by ED staff, reviewed by Rios Ruiz MD. Inserted saline lock: 20 gauge in right forearm, using aseptic technique. Blood collected. Flushed with 10 mL NS. 14:54 UA Rfx Sudarshan Cult if indicated Sent. cm10 14:54 Lipase Sent. cm10 14:54 Basic Metabolic Panel Sent. cm10 14:54 CBC with Diff Sent. cm10 14:54 LFT's Sent. cm10 14:54 Magnesium Sent. cm10 14:54 NT PRO-BNP Sent. cm10 14:54 PT-INR Sent. cm10 14:54 Troponin HS Sent. cm10 15:52 Patient has correct armband on for positive identification. Bed in low position. Call cm10 light in reach. Side rails up X2. Client placed on continuous cardiac and pulse oximetry monitoring. NIBP monitoring applied. cafeteria monitor on. 16:30 Carlos Monique MD is Hospitalizing Provider. [facility] 16:50 CT Chest Abdomen Pelvis W/O Contrast In Process Unspecified. EDMS 18:27 report faxed and confirmed received at 1820. cm10 18:27 Provided Education on: Need for admit. cm10 18:27 No provider procedures requiring assistance completed. Patient admitted, IV remains in cm10 place. Administered Medications: 14:53 Drug: NS 0.9% IV 1000 ml IV at 1000 ml once; to be given as a bolus over 60 minutes cm10 Route: IV; Rate: 1000 ml; Site: right forearm; 15:30 Follow up: Response: No adverse reaction; IV Status: Completed infusion; IV Intake: cm10 1000ml 16:57 Not Given (Patient Refused): [id number] mg IVP once; dilute with 10 mL 0.9% NaCl; cm10 give over 2 minutes 16:58 Not Given (Patient Refused): ondansetron 4 mg IVP once; over 2 minutes cm10 17:50 Drug: Banana Bag - (Multivitamin IV 1 amp, NS 0.9% IV 1000 ml, Thiamine IV 100 mg, cm10 foLIC Acid IVPB 1 mg) IV at 125 ml/hr once Route: IV; Rate: 125 ml/hr; Site: right forearm; 18:46 Follow up: Response: No adverse reaction; IV Status: Infusion continued upon admission cm10 17:51 Drug: Thiamine IV 100 mg IV at per protocol once Route: IV; Rate: per protocol; Site: cm10 right forearm; 18:45 Follow up: Response: No adverse reaction; IV Status: Completed infusion; IV Intake: 1ml cm10 Medication: 15:51 VIS not applicable for this client. cm10 Intake: 15:30 IV: 1000ml; Total: 1000ml. cm10 18:45 IV: 1ml; Total: 1001ml. cm10 Outcome: 16:31 Decision to Hospitalize by Provider. christy 18:45 Admitted to Med/surg accompanied by tennille, via stretcher, room 220, cm10 18:45 Condition: stable 18:45 Instructed on the need for admit, 19:31 Patient left the ED. tb4 Signatures: Dispatcher [employer] EDRios Romo MD MD cha Rivera, Mary, Reg Reg Ashley Piedra, RN Maribell Hopson, RN MARIANNE cm10 Ramona Rodney RN RN tb4
--- NOTE | 2025-05-22 16:31 | EDPHYS ---
Physician Documentation [facility] – [place], [place] Name: Jatin Cadena Age: 65 yrs Sex: Male : 1960 Arrival Date: 05/22/2025 Time: 13:12 Bed 20 Private MD: Rios Lilly HPI: 05/22 16:27 This 65 yrs old Male presents to ER via Wheelchair with complaints of christy Dehydrated, Mouth Problem. 16:27 The patient presents with pain. The problem is located in the soft palate and tongue. christy Onset: The symptoms/episode began/occurred 3 day(s) ago. Duration: The symptoms are continuous, and are steadily getting worse. Modifying factors: The symptoms are alleviated by nothing, the symptoms are aggravated by food. Associated signs and symptoms: The patient has no apparent associated signs or symptoms. Severity of symptoms: At their worst the symptoms were mild, moderate, in the emergency department the symptoms are unchanged. The patient has not experienced similar symptoms in the past. Historical: - Allergies: 13:35 No Known Allergies; iw - Home Meds: 13:35 albuterol sulfate 2.5 mg /3 mL (0.083 %) Inhl Solution for Nebulization every 4 to 6 iw hours [Active]; amlodipine 5 mg tablet daily [Active]; aripiprazole oral [Active]; aspirin 81 mg Oral tablet,chewable daily [Active]; calcitriol 0.25 mcg oral capsule twice a day [Active]; carboxymethylcellulose sodium 0.25 % ophthalmic (eye) drops 4 times per day [Active]; clopidogrel 75 mg oral tablet daily [Active]; donepezil 10 mg oral tablet every day at bedtime [Active]; duloxetine 60 mg oral capsule,delayed release (e.c.) daily [Active]; ergocalciferol (vit D2) (bulk) miscellaneous powder [Active]; fluticasone furoate 27.5 mcg/actuation intranasal spray, suspension twice a day [Active]; gabapentin 300 mg oral capsule 3 times per day [Active]; losartan 25 mg oral tablet daily [Active]; meloxicam 15 mg oral tablet daily [Active]; memantine 10 mg oral tablet 2 times per day [Active]; metformin 500 mg Oral tablet 2 times per day with meals [Active]; sertraline 100 mg oral tablet daily [Active]; tamsulosin 0.4 mg oral capsule daily [Active]; tirzepatide 10 mg/0.5 mL subcutaneous Pen Injector every week [Active]; - PMHx: 15:34 Hypertensive disorder; Hypercholesterolemia; Anemia; Depressive disorder; Diabetes cm10 mellitus; - Immunization history:: Adult Immunizations up to date. - Infectious Disease History:: Denies. - Social history:: Smoking status: unknown. - Family history:: not pertinent. ROS: 16:27 Constitutional: Negative for fever, chills, and weight loss, Eyes: Negative for injury, christy pain, redness, and discharge, Neck: Negative for injury, pain, and swelling, Cardiovascular: Negative for chest pain, palpitations, and edema, Respiratory: Negative for shortness of breath, cough, wheezing, and pleuritic chest pain, Abdomen/GI: Negative for abdominal pain, nausea, vomiting, diarrhea, and constipation, Back: Negative for injury and pain, : Negative for injury, bleeding, discharge, and swelling, MS/Extremity: Negative for injury and deformity, Skin: Negative for injury, rash, and discoloration, Neuro: Negative for headache, weakness, numbness, tingling, and seizure, Psych: Negative for depression, anxiety, suicide ideation, homicidal ideation, and hallucinations, Allergy/Immunology: Negative for hives, rash, and allergies, Endocrine: Negative for neck swelling, polydipsia, polyuria, polyphagia, and marked weight changes, Hematologic/Lymphatic: Negative for swollen nodes, abnormal bleeding, and unusual bruising, 16:27 ENT: Positive for sore throat, DRY MM, Exam: 16:27 Constitutional: This is a well developed, well nourished patient who is awake, alert, christy and in no acute distress. Head/Face: Normocephalic, atraumatic. Eyes: Pupils equal round and reactive to light, extra-ocular motions intact. Lids and lashes normal. Conjunctiva and sclera are non-icteric and not injected. Cornea within normal limits. Periorbital areas with no swelling, redness, or edema. Neck: Trachea midline, no thyromegaly or masses palpated, and no cervical lymphadenopathy. Supple, full range of motion without nuchal rigidity, or vertebral point tenderness. No Meningismus. Chest/axilla: Normal chest wall appearance and motion. Nontender with no deformity. No lesions are appreciated. Cardiovascular: Regular rate and rhythm with a normal S1 and S2. No gallops, murmurs, or rubs. Normal PMI, no JVD. No pulse deficits. Respiratory: Lungs have equal breath sounds bilaterally, clear to auscultation and percussion. No rales, rhonchi or wheezes noted. No increased work of breathing, no retractions or nasal flaring. Back: No spinal tenderness. No costovertebral tenderness. Full range of motion. Male : Normal genitalia with no discharge or lesions. Skin: Warm, dry with normal turgor. Normal color with no rashes, no lesions, and no evidence of cellulitis. MS/ Extremity: Pulses equal, no cyanosis. Neurovascular intact. Full, normal range of motion., bilateral aka Neuro: Awake and alert, GCS 15, oriented to person, place, time, and situation. Cranial nerves II-XII grossly intact. Motor strength 5/5 in all extremities. Sensory grossly intact. Cerebellar exam normal. Normal gait. Psych: Awake, alert, with orientation to person, place and time. Behavior, mood, and affect are within normal limits. 16:27 ENT: Mouth: Lips: dry, Oral mucosa: dry, Gums: normal with healthy appearance, Tongue: tender, abscess, is not appreciated, drooling, is not appreciated, Dental exam: dental caries, that is mild, diffusely, Vital Signs: 13:32 BP 105 / 84; Pulse 76; Resp 16; Temp 99.2; Pulse Ox 100% on R/A; Weight 72.57 kg; iw Height 5 ft. 8 in. ; 14:15 BP 124 / 75; Pulse 68; Resp 13; Pulse Ox 100% on R/A; cm10 15:00 BP 134 / 69; Pulse 64; Resp 16; Pulse Ox 100% ; cm10 15:45 BP 140 / 71; Pulse 62; Resp 14; Pulse Ox 99% on R/A; cm10 16:30 BP 135 / 61; Pulse 59; Resp 12; Pulse Ox 100% on R/A; cm10 17:15 BP 137 / 62; Pulse 58; Resp 15; Pulse Ox 100% on R/A; cm10 18:00 BP 138 / 77; Pulse 60; Resp 12; Pulse Ox 98% on R/A; cm10 13:32 Body Mass Index 24.33 (72.57 kg, 172.72 cm) iw MDM: 13:19 Medical Screening Exam initiated christy 16:31 Differential diagnosis: dental caries, gingivitis, dental abscess, pericoronitis, christy aphthous ulcers, acute necrotizing ulcerative gingivitis, gingivostomatitis. Data reviewed: vital signs, nurses notes, lab test result(s), EKG, radiologic studies, CT scan, plain films. Consideration of Admission/Observation Patient was admitted/placed on observation. Escalation of care including admission/observation considered. I considered the following discharge prescriptions or medication management in the emergency department Medications were administered in the Emergency Department. See MAR. Independent interpretation of the following test(s) in the Emergency Department EKG: See my EKG interpretation above. Test considered but Not performed: Ultrasound NO ABD USG. Historians other than the Patient: Spouse/Significant Other: WELL INFORMED, WANTS TO STAY HERE. 05/22 14:06 Order name: Basic Metabolic Panel; Complete Time: 16:05 [facility] 05/22 14:06 Order name: CBC with Diff; Complete Time: 15:21 [facility] 05/22 14:06 Order name: LFT's; Complete Time: 16:05 [facility] 05/22 14:06 Order name: Magnesium; Complete Time: 16:05 [facility] 05/22 14:06 Order name: NT PRO-BNP; Complete Time: 16:05 [facility] 05/22 14:06 Order name: PT-INR; Complete Time: 15:21 [facility] 05/22 14:06 Order name: Troponin HS; Complete Time: 16:05 [facility] 05/22 14:06 Order name: Lipase; Complete Time: 16:05 [facility] 05/22 14:06 Order name: UA Rfx Sudarshan Cult if indicated; Complete Time: 15:21 [facility] 05/22 18:04 Order name: Magnesium [facility] 05/22 18:04 Order name: Phosphorus [facility] 05/22 18:04 Order name: T4 Free [facility] 05/22 18:04 Order name: Thyroid Stimulating Hormone [facility] 05/22 18:04 Order name: Basic Metabolic Panel [facility] 05/22 18:04 Order name: Basic Metabolic Panel [facility] 05/22 18:04 Order name: CBC with Automated Diff [facility] 05/22 18:04 Order name: CBC with Automated Diff [facility] 05/22 14:06 Order name: XRAY Chest (1 view); Complete Time: 16:05 [facility] 05/22 16:27 Order name: CT Chest Abdomen Pelvis W/O Contrast [facility] 05/22 14:06 Order name: Cardiac monitoring; Complete Time: 14:42 [facility] 05/22 14:06 Order name: EKG - Nurse/Tech; Complete Time: 14:42 [facility] 05/22 14:06 Order name: IV Saline Lock; Complete Time: 14:53 [facility] 05/22 14:06 Order name: Labs collected and sent; Complete Time: 14:53 [facility] 05/22 14:06 Order name: O2 Per Protocol; Complete Time: 14:53 [facility] 05/22 14:06 Order name: O2 Sat Monitoring; Complete Time: 14:53 [facility] 05/22 16:06 Order name: PO challenge; Complete Time: 16:18 [facility] Administered Medications: 14:53 Drug: NS 0.9% IV 1000 ml IV at 1000 ml once; to be given as a bolus over 60 minutes cm10 Route: IV; Rate: 1000 ml; Site: right forearm; 15:30 Follow up: Response: No adverse reaction; IV Status: Completed infusion; IV Intake: cm10 1000ml 16:57 Not Given (Patient Refused): [id number] mg IVP once; dilute with 10 mL 0.9% NaCl; cm10 give over 2 minutes 16:58 Not Given (Patient Refused): ondansetron 4 mg IVP once; over 2 minutes cm10 17:50 Drug: Banana Bag - (Multivitamin IV 1 amp, NS 0.9% IV 1000 ml, Thiamine IV 100 mg, cm10 foLIC Acid IVPB 1 mg) IV at 125 ml/hr once Route: IV; Rate: 125 ml/hr; Site: right forearm; 18:46 Follow up: Response: No adverse reaction; IV Status: Infusion continued upon admission cm10 17:51 Drug: Thiamine IV 100 mg IV at per protocol once Route: IV; Rate: per protocol; Site: cm10 right forearm; 18:45 Follow up: Response: No adverse reaction; IV Status: Completed infusion; IV Intake: 1ml cm10 Disposition Summary: 05/22/25 16:31 Hospitalization Ordered Notes: Hospitalization Status: Inpatient Admission christy Provider: Carlos Monique cha Location: Telemetry/MedSurg (Inpatient) christy Condition: Fair christy Problem: new christy Symptoms: are unchanged christy Bed/Room Type: Standard christy Room Assignment: 220(05/22/25 18:10) ss Diagnosis - Anorexia christy - Dehydration christy - Adverse effect of unspecified drugs, medicaments and biological substances - GLP1 christy Forms: - Medication Reconciliation Form christy - SBAR form christy - Leadership Thank You Letter christy Signatures: Dispatcher [employer] EDMS Rios Ruiz MD MD cha Williams, Irene, RN RN Trina Skinner RN RN ss Maribell Powers RN RN cm10 Corrections: (The following items were deleted from the chart) 14:07 14:07 BASIC METABOLIC PANEL+C.LAB.BRZ ordered. EDMS EDMS 14:07 14:07 CBC+H.LAB.BRZ ordered. EDMS EDMS 14:07 14:07 HEPATIC FUNCTION+C.LAB.BRZ ordered. EDMS EDMS 14:07 14:07 MAGNESIUM+C.LAB.BRZ ordered. EDMS EDMS 14:07 14:07 PROBNP+C.LAB.BRZ ordered. EDMS EDMS 14:07 14:07 PROTIME (+INR)+COAG.LAB.BRZ ordered. EDMS EDMS 14:07 14:07 Troponin High Sensitivity+C.LAB.BRZ ordered. EDMS EDMS 14:07 14:07 LIPASE+C.LAB.BRZ ordered. EDMS EDMS 14:07 14:07 UA Rfx Sudarshan Cult if indicated+U.LAB.BRZ ordered. EDMS EDMS 14:07 14:07 Chest Single View+RAD.RAD.BRZ ordered. EDMS EDMS 18:10 16:31 christy ss
[2025-05-22] MEDS ORDERED: THIAMINE 200 MG/2 ML INJ ONE (17:08)
--- NOTE | 2025-05-22 17:49 | RAD REPORT ---
EXAM: CT CHEST, ABDOMEN AND PELVIS WITHOUT CONTRAST CLINICAL INDICATION: Chest and abdominal pain TECHNIQUE: CT chest, abdomen and pelvis was performed, without IV contrast, as per department protoco l. Axial, sagittal and coronal reconstructions were obtained. One or more of the following dose reduction techniques were used: Automated exposure control, adjustment of the mA and/or kV according to the patient size, and/or iterative reconstruction. Unless otherwise specified, incidental findings do not require dedicated imaging follow-up. The lack of IV and oral contrast limits evaluation of the mediastinum, yohana, vessels, organs and nirmal l. COMPARISON: None FINDINGS: Lungs are clear. No mediastinal or hilar lymphadenopathy seen. Substernal right lobe thyroid right No pleural effusion. No pericardial effusion.. Coronary arterial calcifications. Multiple, bilateral renal calculi. No left hydronephrosis. Minimal right hydronephrosis. Portions of the right ureter mildly dilated. There are 3 calculi within the posterior right aspect of the bladder. They vary in size from 2 to 4 mm. Moderate to large amount of stool present throughout the colon. Liver, spleen, pancreas, and adrenals grossly normal. There is no evidence of diverticulitis. 2.5 cm hemangioma T12 vertebral body. IMPRESSION: Multiple, bilateral renal calculi. Minimal right hydronephrosis. There are 3 calculi along the posterior right aspect of the bladder. At least one of these probably is in the right ureteral vesicle junction.
[2025-05-22] MEDS ORDERED: ONDANSETRON 4 MG/2 ML VIAL IV PRN (18:00)
[2025-05-22] MEDS ORDERED: HYDROCODONE/APAP 5/325 MG TAB PO PRN (18:00)
[2025-05-22] MEDS ORDERED: ACETAMINOPHEN 325 MG TABLET PO PRN (18:00)
[2025-05-22] MEDS: FOLIC ACID 1 MG, MULTIVITAMINS INJ 10 ML, THIAMINE HCL 100 MG in NA CHLORIDE 0.9% 1,000 ML IV ONE (18:00)
[2025-05-22] MEDS ORDERED: GUAIFENESIN/CODEINE 5ML UCUP PO PRN (18:06)
--- NOTE | 2025-05-22 18:07 | P.HP ---
Certification for Inpatient Patient admitted to: Inpatient With expected LOS: >2 Midnights Patient will require the following post-hospital care: None Practitioner: I am a practitioner with admitting privileges, knowledge of patient current condition, hospital course, and medical plan of care. Services: Services provided to patient in accordance with Admission requirements found in Title 42 Section 412.3 of the Code of Federal Regulations Patient History Date of Service: 05/22/25 Reason for admission: Poor appetite and dehydration History of Present Illness: Patient is a 65-year-old male with a past medical history significant for hypertension, hyperlipidemia, anemia, depression, DM2, dementia, BPH who presents with complaint of poor appetite and dehydration. Patient's spouse reported that patient has been experiencing lipsmacking and involuntary body movements mostly in the feet for the past 2 weeks. Patient reported that he has been biting different parts of his mouth and experiences burning pain whenever he eats. Patient also reports that whenever he eats he feels bloated and as such has not been eating or drinking. Patient also reports difficulty urinating. Patient reported associated signs and symptoms of headache, dysuria, urinary frequency and diaphoresis. Patient denies any other signs or symptoms. Symptoms are aggravated or relieved by nothing. Patient went to the [place] [facility] where he was referred to come to the hospital for further evaluation. Allergies No Known Allergies Allergy (Verified 05/22/25 19:37) - Past Medical/Surgical History -: Hypertension -: Dementia -: Hyperlipidemia -: Depression -: BPH Past Surgical History: Unable to obtain - Family History Family History: Reviewed- Non-Contributory - Social History Smoking Status: Former smoker Alcohol use: No CD- Drugs: No Caffeine use: No Place of Residence: Home Review of Systems General: Sweats Eyes: Unremarkable ENT: Other (Lipsmacking) Respiratory: Unremarkable Cardiovascular: Unremarkable Gastrointestinal: Unremarkable Genitourinary: Dysuria, Frequency, Other (Urinary retention.) Musculoskeletal: Unremarkable Integumentary: Unremarkable Neurological: Other (ORDOÑEZ) Lymphatics: Unremarkable Physical Examination - Physical Exam General: Alert, In no apparent distress, Oriented x3 HEENT: Atraumatic, PERRLA, Mucous membr. moist/pink, EOMI, Sclerae nonicteric Neck: Supple, 2+ carotid pulse no bruit, No LAD, Without JVD or thyroid abnormality Respiratory: Clear to auscultation bilaterally, Normal air movement Cardiovascular: No edema, Regular rate/rhythm, Normal S1 S2 Capillary refill: <2 Seconds Gastrointestinal: Normal bowel sounds, Non-distended, No tenderness Musculoskeletal: No clubbing, No swelling, No tenderness Integumentary: No rashes, No significant lesion Neurological: Normal gait, Normal speech, Normal strength at 5/5 x4 extr, Normal tone, Normal affect Lymphatics: No axilla or inguinal lymphadenopathy - Studies Laboratory Data (last 24 hrs) 05/22/25 05/22/25 05/22/25 14:47 14:47 14:47 WBC 12.30 H Hgb 13.0 L Hct 37.1 L Plt Count 259 PT 12.7 INR 1.13 Sodium 138 Potassium 4.0 BUN 24 H Creatinine 1.26 Glucose 129 H Magnesium 1.9 Total Bilirubin 0.6 AST 19 ALT 29 Alkaline Phosphatase 95 Lipase 33 Assessment and Plan - Plan Anorexia Dehydration --Continue IV hydration. --Dietitian consulted. Recommendations appreciated. Involuntary movements. --Patient\spouse denies any use of psychotic medications but Aripiprazole noted on patient's medical record. --Patient has been lipsmacking and experiencing involuntary movements mostly in the feet in the last 2 weeks. --MRI brain pending for further evaluation. --Nutrition consulted. Recommendations appreciated. Urinary retention --Bladder scan pending for further evaluation. UTI POA. --Patient complaining of dysuria and urinary frequency --UA positive for leukocyte esterase. --Patient placed on antibiotics. --Urine cultures pending. Hyperlipidemia\depression\BPH -- Continue home medications when available. Hypertension --Stable. --Continue home medications. Dementia. --Baseline mental status unknown. --Continue home medications when available. --Continue supportive care. CKD 2. --Baseline functions unknown. --Will continue to monitor renal functions. Anemia of chronic disease. --H&H stable. --Transfuse if hemoglobin less than 7.0 Leukocytosis. --Likely reactive. --Will continue to monitor WBC levels. DVT prophylaxis with heparin subQ Discharge Plan: Home Plan to discharge in: 48 Hours - Advance Directives Does patient have a Living Will: Yes Does patient have a Durable POA for Healthcare: Yes - Code Status/Comfort Care Code Status Assessed: Yes Physician Review: Patient Assessed, Agree with Above Assessment and Plan Critical Care: No
[2025-05-22] MEDS: HEPARIN 5000 UNIT/ML 1 ML VIAL SQ SCH (21:00)
[2025-05-22] MEDS: NA CHLORIDE 0.9% 1,000 ML IV SCH (22:00)
--- NOTE | 2025-05-22 22:19 | RAD REPORT ---
EXAM: URINARY BLADDER ULTRASOUND CLINICAL INDICATION: Abdominal pain. Urinary retention TECHNIQUE: Sonographic evaluation of the bladder performed. FINDINGS: Prevoid bladder volume 1084 cc Postvoid bladder volume 641 cc Prostate measures 3.8 x 3.6 x 3.9 cm. No ascites seen IMPRESSION; Prevoid bladder volume 1084 cc Postvoid bladder volume 641 cc
[2025-05-22] MEDS: CEFTRIAXONE 1,000 MG in NA CHLORIDE 0.9% 50 ML IVPB SCH (22:30)
[2025-05-23 01:28] VITALS: O2SAT 98
[2025-05-23 01:45] VITALS: BMI 24.3
[2025-05-23 04:39] LABS: Absolute Lymphocytes (CBC) 2.2 K/uL (0.7-4.9); Hematocrit 33.2 % (39.6-49.0); Hemoglobin 11.8 g/dL (13.6-17.9); MCH 31.5 pg (27.0-35.0); MCHC 35.5 g/dL (32.0-36.0); MCV 88.9 fL (80-100); MPV 9.2 fL (7.6-11.3); Nucleated RBC Absolute Count 0.0 (0-0); Nucleated Red Blood Cells % 0.0 % (0-0); RBC Red Blood Cell Count 3.73 M/uL (4.33-5.43); White Blood Count 8.10 thou/uL (4.3-10.9)
[2025-05-23 04:40] LABS: Anion Gap 8.4 mEq/L (5.0-15.0); BUN Blood Urea Nitrogen 20.0 mg/dL (7-18); Glucose Level 125.0 mg/dL (74-106); Potassium 4.4 mEq/L (3.5-5.1)
[2025-05-23 04:49] LABS: Magnesium 1.8 mg/dL (1.6-2.4); Thyroid Stimulating Hormone 0.211 uIU/mL (0.358-3.740)
--- NOTE | 2025-05-23 08:46 | RAD REPORT ---
EXAMINATION: MRI BRAIN WITHOUT CONTRAST CLINICAL INDICATION: Male, 65 years old. Involuntary movements. TECHNIQUE: Multiplanar multisequence MR images of the brain were obtained without intravenous contras t. Unless otherwise specified, incidental findings do not require dedicated imaging follow-up. COMPARISON: No prior exam. FINDINGS: INTRACRANIAL: Midline structures are unremarkable. Diffusion-weighted images show no acute or early subacute infarction. There is mild brain atrophy with mildT2/FLAIR hyperintensities in the periventricular and deep white matter regions, likely representing chronic microvascular ischemic christy nges. There is no mass effect or midline shift. No abnormal extraaxial fluid collection. VASCULATURE: Normal signal voids in the larger intracranial arteries and dural venous sinuses. SINUSES: The paranasal sinuses and mastoid air cells are predominantly clear. BONE: The marrow signal pattern is within normal limits. IMPRESSION: No significant intracranial abnormalities.
[2025-05-23] MEDS ORDERED: SIMETHICONE 80 MG CHEWABLE TAB PO PRN (09:22)
[2025-05-23] MEDS: GABAPENTIN 300 MG CAP PO SCH (13:47)
[2025-05-23] MEDS: CARBOXYMETHYLCELLULOSE SODIUM 0.5% 15 ML OPTH SCH (13:47)
--- NOTE | 2025-05-23 15:01 | P.PN ---
Subjective Date of Service: 05/23/25 Chief Complaint: Poor appetite and dehydration Subjective: No new changes (Patient had his first therapy session with PT today. He is unable to lift both legs off his bed. He will need continued therapy and possibly inpatient rehab.) Physical Examination - Vital Signs Temperature: 98.7 F Blood Pressure: 152/73 Pulse: 70 Respirations: 12 Pulse Ox (%): 95 - Physical Exam General: Alert, In no apparent distress, Cooperative HEENT: Atraumatic, Normocephalic Respiratory: Clear to auscultation bilaterally, Normal air movement Cardiovascular: No edema, Normal pulses, Regular rate/rhythm, Normal S1 S2 Neurological: Normal speech, Other (Tremors) - Studies Laboratory Data (last 24 hrs) 05/22/25 05/22/25 05/22/25 14:47 14:47 14:47 WBC 12.30 H Hgb 13.0 L Hct 37.1 L Plt Count 259 PT 12.7 INR 1.13 Sodium 138 Potassium 4.0 BUN 24 H Creatinine 1.26 Glucose 129 H Magnesium 1.9 Total Bilirubin 0.6 AST 19 ALT 29 Alkaline Phosphatase 95 Lipase 33 Assessment And Plan - Plan Assessment Patient is a 65-year-old male with a past medical history of hypertension, hyperlipidemia, dementia and depression. He was admitted to the hospital due to poor appetite and hypovolemia. Patient has also been experiencing involuntary movements including spontaneous lipsmacking. He is frail physically and cachectic. He is staying to be volume resuscitated and undergo therapy. Workup in the ER including brain MRI and CT chest abdomen pelvis, all of which could not explain his symptoms. Generalized weakness Hypovolemia Leukocytosis Involuntary movement Renal calculi Dementia Anemia Plan: Brain MRI negative for CVA and acute brain pathology MRI lumbar spine due to history of spondylosis Continue PT/OT while in-house Social service consulted for inpatient rehab referral Continue volume repletion Continue rest of home medications Physician Review: Patient Assessed, Agree with Above Assessment and Plan
--- NOTE | 2025-05-23 17:08 | RAD REPORT ---
EXAMINATION: MRI LUMBAR SPINE WITH & WITHOUT CONTRAST CLINICAL INDICATION: Male, 65 years old. [facility] N Bilateral lower extremity weakness TECHNIQUE: Multiplanar multisequence MR images were obtained of the lumbar spine before and after int ravenous administration of 16mL MultiHance. Unless otherwise specified, incidental findings do not require dedicated imaging follow-up. COMPARISON: 06/21/2023 FINDINGS: For purposes of this dictation, it is assumed that there are 5 non rib-bearing lumbar type vertebrae, and the most caudal fully segmented lumbar vertebra is labeled L5. ALIGNMENT: The lumbar spine has normal alignment. BONE: Vertebral bodies are normal in height. There is a normal marrow signal pattern. Endplate and fa cet degenerative changes contribute to the findings below CORD: No abnormal signal in the cord. The conus medullaris terminates at a normal level. The nerve ro ots of the cauda equina appear normal. SOFT TISSUE: The included paraspinal soft tissues and retroperitoneal structures are grossly normal. No abnormal masses or enhancement. EVALUATION OF THE INDIVIDUAL LEVELS: L1-2: Small central disc protrusion. No significant central canal or foraminal stenosis. L2-3: Circumferential disc bulge. No central canal or foraminal stenosis. L3-4: Mild disc height loss with circumferential disc bulge. Mild effacement of the ventral and dorsa l CSF space without significant central canal stenosis. Mild bilateral neural foraminal narrowing worse on the right, stable. L4-5: Stable small central disc extrusion mildly effacing the ventral CSF space. Mild bilateral neura l foraminal narrowing more pronounced on the left, stable. L5-S1: Small central disc extrusion. Mild left more than right neural foraminal narrowing. Central ca nal is patent. Findings are stable. IMPRESSION: No acute lumbar spine abnormalities. Stable mild spondylotic lumbar spine changes contributing to mil d degrees of neural foraminal narrowing as detailed above. No abnormal enhancement
[2025-05-23] MEDS: FLUTICASONE 50MCG NASAL SPRAY NAS SCH (21:00)
[2025-05-23] MEDS: LOSARTAN POTASSIUM 50 MG TABLET PO SCH (21:50)
[2025-05-23] MEDS: MEMANTINE HCL 10 MG TABLET PO SCH (21:51)
[2025-05-23] MEDS: TAMSULOSIN 0.4 MG SR CAP PO SCH (21:52)
[2025-05-23] MEDS: DOCUSATE NA 100 MG CAP PO SCH (21:52)
[2025-05-23] MEDS: CALCITROL 0.25 MCG CAP PO SCH (21:52)
[2025-05-23] MEDS: MELATONIN 3 MG TABLET PO SCH (21:52)
[2025-05-23] MEDS: ENSURE ENLIVE 237 ML CAN PO SCH (22:35)
[2025-05-24] MEDS ORDERED: AMLODIPINE 5 MG TAB PO SCH (09:00)
[2025-05-24] MEDS: SERTRALINE HCL 100 MG TAB PO SCH (09:10)
[2025-05-24] MEDS: MELOXICAM 7.5 MG TAB PO SCH (09:10)
[2025-05-24] MEDS: CLOPIDOGREL 75 MG TABLET PO SCH (09:11)
[2025-05-24] MEDS: DULOXETINE 20 MG CAP PO SCH (09:11)
[2025-05-24] MEDS: AMLODIPINE 5 MG TAB PO SCH (09:11)
[2025-05-24] MEDS: ASPIRIN 81 MG CHEWABLE TABLET PO SCH (09:11)
[2025-05-24] MEDS: LORATADINE 10 MG TAB PO SCH (09:12)
--- NOTE | 2025-05-24 15:57 | P.DS ---
Admission Date: 05/22/25 Discharge Date: 05/24/25 Disposition: ROUTINE DISCHARGE Discharge Condition: GOOD Reason for Admission: Poor appetite and dehydration Hospital Course: Patient is a 65-year-old male with a past medical history of hypertension, hyperlipidemia, dementia and depression. He was admitted to the hospital due to poor appetite and hypovolemia. Patient has also been experiencing involuntary movements including spontaneous lipsmacking. He is frail physically and cachectic. His brain MRI was negative for acute pathology. He also had a lumbar spine MRI due to his history of spondylosis. It revealed mild stable findings compared to study done in 2022. He stayed to be volume resuscitated and therapy. Patient has done well with therapy. He is medically cleared for discharge. He has declined rehab and home health. Vital Signs/Physical Exam: Temp Pulse Resp BP Pulse Ox 98.3 F 65 18 119/59 L 98 05/24/25 11:39 05/24/25 11:39 05/24/25 11:39 05/24/25 11:39 05/24/25 11:39 General: Alert, In no apparent distress, Cooperative HEENT: Atraumatic, Normocephalic Respiratory: Clear to auscultation bilaterally, Normal air movement Cardiovascular: No edema, Normal pulses, Regular rate/rhythm, Normal S1 S2 Neurological: Normal speech Laboratory Data at Discharge: WBC 8.10 thou/uL (4.3-10.9) 05/23/25 03:58 Hgb 11.8 g/dL (13.6-17.9) L D 05/23/25 03:58 Hct 33.2 % (39.6-49.0) L 05/23/25 03:58 Plt Count 194 thou/uL (152-406) 05/23/25 03:58 PT 12.7 SECONDS (10-13.0) 05/22/25 14:47 INR 1.13 05/22/25 14:47 Sodium 145 mEq/L (136-145) D 05/23/25 03:58 Potassium 4.4 mEq/L (3.5-5.1) 05/23/25 03:58 BUN 20 mg/dL (7-18) H 05/23/25 03:58 Creatinine 0.89 mg/dL (0.70-1.30) 05/23/25 03:58 Glucose 125 mg/dL (74-106) H 05/23/25 03:58 Phosphorus 3.6 mg/dL (2.5-4.9) 05/23/25 03:58 Magnesium 1.8 mg/dL (1.6-2.4) 05/23/25 03:58 Total Bilirubin 0.6 mg/dL (0.2-1.0) 05/22/25 14:47 AST 19 U/L (15-37) 05/22/25 14:47 ALT 29 U/L (16-61) 05/22/25 14:47 Alkaline Phosphatase 95 U/L (45-117) 05/22/25 14:47 Lipase 33 U/L (13-75) 05/22/25 14:47 Home Medications: Amlodipine Besylate 5 mg PO DAILY 05/23/25 Aspirin 81 mg PO DAILY 05/23/25 Calcitrol [Rocaltrol*] 0.25 mcg PO BID 05/23/25 Carboxymethylcellulose Sodium [Artificial Tears] 1 gtt EACH EYE QID 05/23/25 Clopidogrel Bisulfate [Plavix*] 75 mg PO DAILY 05/23/25 Docusate Sodium 100 mg PO BID 05/23/25 Duloxetine HCl [Cymbalta] 20 mg PO DAILY 05/23/25 Ergocalciferol (Vitamin D2) [Vitamin D2] 1 cap PO SEECOM 05/23/25 Fluticasone Propionate 1 spray CHANTAL BID 05/23/25 Gabapentin 300 mg PO TID 05/23/25 Loratadine [Allergy Relief] 10 mg PO DAILY 05/23/25 Losartan Potassium 25 mg PO BEDTIME 05/23/25 Melatonin 3 mg PO BEDTIME 05/23/25 Meloxicam 15 mg PO DAILY 05/23/25 Memantine HCl 10 mg PO BID 05/23/25 Metformin HCl [Metformin HCl ER] 500 mg PO BID 05/23/25 Sertraline HCl 100 mg PO DAILY 05/23/25 Simethicone 80 mg PO TID PRN 05/23/25 Tamsulosin HCl 0.4 mg PO BEDTIME 05/23/25 Ensure Enlive 237 ml PO TID can 05/24/25 [facility] [Primary Care Provider] -
[2025-05-24 16:00] VITALS: BP 134/61; TEMP 98.4
--- NOTE | 2025-05-24 23:57 | CON ---
Reason For Consultation: Consultation called because of the poor appetite and dehydration. History Of Present Illness: Mr. Cadena is a 65-year-old patient with hypertension, dementia, dyslipi demia, depression, benign prostatic hypertrophy, who [facility] . She said he had been seeing different doctors at the [place] [facility], but has been put on the M ounjaro and had significant weight loss that has led him to actually quit eating and drinking. The p atient also has very little urine production and stool production likely because of severe dehydratio n and poor oral intake. He was seen in the hospital. His evaluation did include a bladder ultrasoun d, which looked at prevoid volume of 1084 and postvoid volume showing retention where he has 641 cc r etained after urination. prostate hypertrophy, which [facility] scan of the abdomen and pelvis effectively showed minimal right hydronephrosis and 3 calculi along the posterior right aspect of the bladder and at least 1 of these probably in the right ureterovesic al junction. His lumbar spine MRI showed no acute lumbar spine abnormality. Stable mild spondylitic lumbar spine changes contributing to a mild degree of neural foraminal narrowing, which is seen bila terally at L4-5, mildly at L3-4 as well. MRI of his brain yesterday showed no acute or significant i ntracranial abnormalities. There was mild brain atrophy with mild small vessel ischemic disease pres ent. The patient did receive hydration, and since being hydrated, he is back to a baseline level of functi oning. Still has poor appetite for urine output and stool output. However, the patient's is wi lling to work with him over the weekend to encourage oral hydration. She is working with protein sup plementation and list of other nutrients such as eating solid foods and increasing protein and carboh ydrate amount in his diet. Past Medical History: As noted above. Family History: Noncontributory. Social History: Smoked in the past. No current alcohol, tobacco, or IV drug use. Review of Systems: No fevers, chills, nausea, vomiting, myalgias, arthralgias. Difficulty with stools, const ipation. Difficulty with urine production. Allergies: NO KNOWN DRUG ALLERGIES. Current Medications: Tylenol 650 mg every 6 hours as needed, Norvasc 10 mg daily, Artificial Tears 1 drop 4 times daily, aspirin 81 mg daily. He did receive 1 g of Rocephin, Plavix 75 mg daily, Colace 100 mg twice daily, duloxetine 20 mg daily, Flonase 1 spray per nostril daily, Tye 5/325 every 6 h ours as needed, Claritin 10 mg daily, Cozaar 25 mg at bedtime, melatonin 3 mg at bedtime, Mobic 15 mg daily, Ensure Clear 237 mL 3 times daily, Zofran 4 mg every 6 hours as needed, Mylicon 80 mg 3 times daily, and Flomax 0.4 mg daily. Physical Examination: Vital Signs: Blood pressure 134/61, pulse 61, respiratory rate 18, temperature 98.4, oxygen saturati on 97%. Weight 106 pounds, height 5 feet, BMI 24.3. GENERAL: Mr. Cadena is resting in bed. He is in no acute distress. HEENT: He appears normocephalic, atraumatic. Sclerae anicteric. Oropharynx pink and moist. Neck: Supple. Chest: Clear. Neurologic: He has no focal cranial nerve, motor, coordination, gait, or sensory deficits. Assessment And Plan: Mr. Cadena is a 65-year-old patient who has had some failure to thrive after re ceiving GLP-1Genny and has had likely some form of decreased GI function that led to poor oral i ntake and dehydration. No evidence of stroke or focal neurologic deficits or evidence of seizures or infection. He is now dehydrated and improving significantly. The encouragement patient to keep being well hydrated including with electrolytes and increase his nutritional intake. He is s cheduled to receive his GLP-1 injection tomorrow, but that will be held. [facility] and may follow up in Dr. Walden's clinic within the month of his discharge, which is expe cted to be today. EDISON/MORE Voice ID: [id number] Report ID: [id number]
== END 2025-05-24 17:52 | disposition home or self-care (01) | DRG 641 ==
LOC: ER 13:12 → ERHOLD 17:58 → 2ND 18:40
PROVIDERS: ADMIT Hospitalist; ATTEND Internal Medicine
DX: E86.0 Dehydration (principal); N39.0 Urinary tract infection, site not specified; N13.2 Hydronephrosis with renal and ureteral calculous obstruction; R63.0 Anorexia; R25.9 Unspecified abnormal involuntary movements; R33.9 Retention of urine, unspecified; E78.5 Hyperlipidemia, unspecified; F32.A Depression, unspecified; N40.0 Benign prostatic hyperplasia without lower urinary tract symptoms; F03.90 Unspecified dementia, unspecified severity, without behavioral disturbance, psychotic disturbance, mood disturbance, and anxiety; N18.2 Chronic kidney disease, stage 2 (mild); I12.9 Hypertensive chronic kidney disease with stage 1 through stage 4 chronic kidney disease, or unspecified chronic kidney disease; D63.8 Anemia in other chronic diseases classified elsewhere; Z87.891 Personal history of nicotine dependence; Z79.51 Long term (current) use of inhaled steroids; Z79.82 Long term (current) use of aspirin; Z79.02 Long term (current) use of antithrombotics/antiplatelets; Z68.24 Body mass index [BMI] 24.0-24.9, adult; T50.995A Adverse effect of other drugs, medicaments and biological substances, initial encounter; Y92.9 Unspecified place or not applicable
CPT/HCPCS: 36415; 70551; 71045; 71250; 72158; 74176; 76857; 80048; 80076; 81001; 82947; 83036; 83690; 83735; 83880; 84100; 84439; 84443; 84481; 84484; 85025; 85610; 93005; 96361; 96365; 97116; 97161; 97165; 99285; A9577; J0696; J1644; J2405; J3411; J7030